=== PATIENT | male | born 1955 | race Caucasian/White ===

== ENCOUNTER 2019-06-06 13:00 | Inpatient (IN) ==
[2019-06-06] MEDS ORDERED: DOPamine 800 MG/250 ML PREMIX IV ONE (13:13)
[2019-06-06] MEDS ORDERED: ETOMIDATE 20 MG/10 ML VIAL IV ONE (13:18)
[2019-06-06] MEDS ORDERED: ROCURONIUM 100 MG/10 ML VIAL IV ONE (13:18)
[2019-06-06] MEDS: DOPamine 800 MG/250 ML PREMIX IV PRN ×2 (13:20→21:21)
[2019-06-06] MEDS ORDERED: cefTRIAXone 2,000 MG in SODIUM CHLORIDE 0.9% 100 ML IV ONE ×2 (13:27→14:30)
[2019-06-06 13:36] LABS: Basophils # 0.1 10*3/uL (0.0-0.2); Basophils % 0.6 % (0.0-0.8); Eosinophils % 0.3 % (0.00-10.9); Hematocrit 40.3 VOL% (42.0-52.0); Immature Granulocytes % 2.2 %; Immature Granulocytes Absolute 0.22 #; Lymphocytes # 1.7 10*3/uL (1.4-4.0); Lymphocytes % 16.5 % (21.2-54.2); Mean Corpuscular HGB Conc 32.3 GM/DL (32-36); Mean Corpuscular Volume 88.8 FL (87-102); Mean Platelet Volume 11.2 FL (9.6-12.0); Monocytes % 10.5 % (1.7-12.7); Neutrophils % 69.9 % (38.7-73.9); Platelet Count 211 T/CUMM (130-400); Red Blood Count 4.54 MC/CUMM (3.8-5.5); Red Cell Distribution Width 13.3 % (9.3-17.3); White Blood Count 10.1 T/CUMM (4-12)
[2019-06-06] MEDS ORDERED: EPINEPHrine 1 MG/ML VIAL ONE (13:44)
[2019-06-06 13:47] LABS: INR 1.2; PT Patient Result 13.1 SECS (9.8-11.9); Partial Thromboplastin Time 35.4 SECS (23.9-33.8)
[2019-06-06] MEDS ORDERED: SODIUM CHLORIDE 0.9% 500 ML IV STA (13:48)
[2019-06-06 14:00] LABS: ABG Base Excess -15.6 MMOL/L (-2.5-2.5); ABG HCO3 12.9 MMOL/L (20-26); ABG Oxygen Saturation 96.3 % (95-100); ABG PCO2 55.3 MM HG (35-48); ABG TCO2 14.7 MMOL/L (23-27); Allen Test Positive; Pt O2 Delivery Device Ventilator
[2019-06-06 14:03] LABS: ABG PH 7.064 (7.35-7.45)
[2019-06-06 14:06] LABS: Bilirubin,Total 0.5 MG/DL (0.2-1.0); Calcium 6.3 MG/DL (8.5-10.1); Ferritin 440.9 ng/ml (26-388); Osmolality,Calculated 320.8 MOS/KG (273-304); Thyroid Stimulating Hormone 0.967 uIU/ml (0.358-3.74); Total Protein 6.7 G/DL (6.4-8.3)
[2019-06-06] MEDS ORDERED: INSULIN REGULAR 100 UNIT/ML IV STA (14:19)
[2019-06-06] MEDS ORDERED: DEXTROSE 50% 25 GM/50 ML VIAL IV STA (14:19)
[2019-06-06] MEDS ORDERED: ALBUTEROL 2.5 MG/3 ML NEB RESP TX STA (14:19)
[2019-06-06] MEDS ORDERED: SODIUM BICARBONATE 50 MEQ/50 ML VIAL IV STA (14:21)
[2019-06-06] MEDS ORDERED: cefTRIAXone 2,000 MG in SYRINGE 1 EACH IV ONE (14:30)
[2019-06-06] MEDS ORDERED: SODIUM CHLORIDE 0.9% 1,000 ML IV STA (14:33)
[2019-06-06 14:38] LABS: Eosinophils 1 % (0-10); Lymphocytes 18 % (20-55); Segmented Neutrophils 74 % (50-85); Total Cells Counted 100
[2019-06-06 14:40] LABS: Platelet Estimate Adequate
[2019-06-06] MEDS ORDERED: DEXTROSE 10% 250 ML BAG IV STA (14:48)
[2019-06-06] MEDS ORDERED: ACETAMINOPHEN 325 MG TABLET PO PRN (14:49)
[2019-06-06] MEDS ORDERED: ONDANSETRON 4 MG/2 ML VIAL IV PRN (14:49)
[2019-06-06] MEDS ORDERED: GLUCAGON 1 MG VIAL IM PRN (14:49)
[2019-06-06] MEDS ORDERED: SODIUM POLYSTYRENE SULFATE 15 GM/60 ML BOTTLE RECTAL ONE ×3 (14:56→23:28)
[2019-06-06] MEDS ORDERED: SODIUM POLYSTYRENE SULFATE 15 GM/60 ML BOTTLE PO STA (14:56)
[2019-06-06] MEDS ORDERED: SODIUM CHLORIDE 0.9% 1,000 ML IV SCH (15:00)
[2019-06-06] MEDS ORDERED: SODIUM POLYSTYRENE SULFATE 15 GM/60 ML BOTTLE PO SCH (15:00)
[2019-06-06] MEDS ORDERED: SODIUM CHLORIDE 0.9% 1,000 ML IV PRN (16:11)
[2019-06-06] MEDS ORDERED: NOREPINEPHRINE 4 MG/4 ML VIAL IV ONE (16:12)
[2019-06-06] MEDS ORDERED: HEPARIN 10,000 UNIT/10 ML VIAL IV SCH (17:15)
[2019-06-06] MEDS: SODIUM BICARB INJ 150 MEQ in DEXTROSE 5% 850 ML IV SCH (17:34)
[2019-06-06 17:54] LABS: ABG Base Excess -13.6 MMOL/L (-2.5-2.5); ABG HCO3 14.1 MMOL/L (20-26); ABG Oxygen Saturation 89.3 % (95-100); ABG PCO2 50.3 MM HG (35-48); ABG PO2 67.4 MM HG (80-95); ABG TCO2 15.1 MMOL/L (23-27); Allen Test Positive; Pt O2 Delivery Device Ventilator
[2019-06-06 17:56] LABS: ABG PH 7.122 (7.35-7.45)
[2019-06-06] MEDS ORDERED: VASOPRESSIN 100 UNITS in SODIUM CHLORIDE 0.9% 95 ML IV SCH (19:00)
[2019-06-06] MEDS: ALBUTEROL 2.5 MG/3 ML NEB RESP TX SCH (19:26)
[2019-06-06 19:28] LABS: Apearance,Urine CLOUDY (Clear); Bacteria,Urine Occasional /HPF (Few); Bilirubin,Urine Negative (Negative); Blood, Urine Small mg/dL (Negative); Glucose,Urine (UA) 50 mg/dL (Negative); Ketones,Urine Negative (Negative); Mucus,Urine Occasional /LPF (Occasional); Nitrite,Urine Negative (Negative); Protein,Urine 100 MG/DL; RBC,Urine 17 /HPF (0-4); Squamous Epithelial Cell,Urine Occasional /HPF (0-10); Urine Color Amber (Yellow); Urine Urobilinogen < 2.0 EU/DL (0.2-1.0); WBC,Urine 11 /HPF (0-6)
[2019-06-06] MEDS ORDERED: VASOPRESSIN 100 UNITS in SODIUM CHLORIDE 0.9% 95 ML IV PRN (20:19)
[2019-06-06] MEDS ORDERED: HEPARIN 10,000 UNIT/10 ML VIAL IV PRN (20:30)
[2019-06-06] MEDS: PANTOPRAZOLE 40 MG VIAL IV SCH (20:55)
[2019-06-06] MEDS: DOCUSATE SODIUM 100 MG CAPSULE PO SCH (20:56)
[2019-06-06] MEDS ORDERED: SODIUM POLYSTYRENE SULFATE 15 GM/60 ML BOTTLE PO PRN (21:00)
[2019-06-06] MEDS ORDERED: APIXABAN 5 MG TABLET PO SCH (21:00)
[2019-06-06] MEDS ORDERED: SODIUM POLYSTYRENE SULFATE 15 GM/60 ML BOTTLE RECTAL PRN (21:00)
[2019-06-06 22:45] LABS: Hematocrit 40.4 VOL% (42.0-52.0); Hemoglobin 13.2 GM/DL (14.0-18.0)
[2019-06-07] MEDS: NOREPINEPHRINE 8 MG in SODIUM CHLORIDE 0.9% 242 ML IV PRN ×6 (00:37→23:01)
[2019-06-07] MEDS: INSULIN REGULAR 100 UNIT/ML SUBCUT SCH ×5 (00:49→22:52)
[2019-06-07] MEDS: ALBUTEROL 2.5 MG/3 ML NEB RESP TX SCH ×4 (00:55→19:35)
[2019-06-07] MEDS: SODIUM BICARB INJ 150 MEQ in DEXTROSE 5% 850 ML IV SCH ×2 (01:48→12:36)
[2019-06-07 04:18] LABS: ABG Base Excess -12.2 MMOL/L (-2.5-2.5); ABG HCO3 15.8 MMOL/L (20-26); ABG Oxygen Saturation 94.4 % (95-100); ABG PCO2 43.6 MM HG (35-48); ABG PO2 80.6 MM HG (80-95); ABG TCO2 17.1 MMOL/L (23-27); Allen Test Positive; Pt O2 Delivery Device Ventilator
[2019-06-07 04:20] LABS: ABG PH 7.176 (7.35-7.45)
[2019-06-07] MEDS: DOPamine 800 MG/250 ML PREMIX IV PRN ×3 (04:36→23:02)
[2019-06-07 06:33] LABS: Hematocrit 38.7 VOL% (42.0-52.0); Hemoglobin 12.9 GM/DL (14.0-18.0)
[2019-06-07 07:09] LABS: Osmolality,Calculated 334.8 MOS/KG (273-304)
[2019-06-07 07:10] LABS: Calcium 5.4 MG/DL (8.5-10.1)
[2019-06-07] MEDS: ASPIRIN EC 81 MG TABLET PO SCH (08:00)
[2019-06-07] MEDS: PANTOPRAZOLE 40 MG VIAL IV SCH ×2 (08:00→22:53)
[2019-06-07] MEDS: PANTOPRAZOLE 40 MG TABLET PO SCH (08:00)
[2019-06-07] MEDS: DOCUSATE SODIUM 100 MG CAPSULE PO SCH ×2 (08:00→22:53)
[2019-06-07 08:17] LABS: Hematocrit 39.9 VOL% (42.0-52.0); Hemoglobin 12.7 GM/DL (14.0-18.0)
[2019-06-07 10:16] LABS: Hepatitis B Core IgM Quant < 0.05 Index; Hepatitis B Surface Ag Quant < 0.10 Index; Hepatitis B Surface Ag Result Negative (Negative); Hepatitis C Virus Ab Quant 0.08 Index; Hepatitis C Virus Ab Result Negative (Negative)
[2019-06-07 11:47] LABS: Hematocrit 39.2 VOL% (42.0-52.0); Hemoglobin 13.3 GM/DL (14.0-18.0)
[2019-06-07 11:58] LABS: Basophils % 0.4 % (0.0-0.8); Eosinophils # 0.1 10*3/uL (0.0-0.87); Eosinophils % 0.8 % (0.00-10.9); Immature Granulocytes % 2.8 %; Immature Granulocytes Absolute 0.28 #; Lymphocytes # 1.2 10*3/uL (1.4-4.0); Lymphocytes % 12.4 % (21.2-54.2); Mean Corpuscular HGB Conc 33.5 GM/DL (32-36); Mean Corpuscular Volume 86.1 FL (87-102); Mean Platelet Volume 10.9 FL (9.6-12.0); Monocytes % 6.9 % (1.7-12.7); Neutrophils % 76.7 % (38.7-73.9); Platelet Count 233 T/CUMM (130-400); Red Blood Count 4.68 MC/CUMM (3.8-5.5); Red Cell Distribution Width 13.2 % (9.3-17.3)
[2019-06-07 12:15] LABS: Calcium 6.7 MG/DL (8.5-10.1); Osmolality,Calculated 314.4 MOS/KG (273-304)
[2019-06-07 12:32] LABS: Band Neutrophils 32 % (0-10); Eosinophils 2 % (0-10); Lymphocytes 10 % (20-55); Metamyelocytes 1 %; Myelocytes 1 %; Platelet Estimate Normal; Segmented Neutrophils 44 % (50-85); Total Cells Counted 100
[2019-06-07 12:33] LABS: Anisocytosis Slight; Poikilocytosis Slight
[2019-06-07] MEDS: cefTRIAXone 2,000 MG in SYRINGE 1 EACH IV SCH (15:40)
[2019-06-08] MEDS: SODIUM BICARB INJ 150 MEQ in DEXTROSE 5% 850 ML IV SCH ×2 (00:36→14:55)
[2019-06-08] MEDS: ALBUTEROL 2.5 MG/3 ML NEB RESP TX SCH ×4 (02:20→19:22)
[2019-06-08 04:07] LABS: Basophils % 0.3 % (0.0-0.8); Eosinophils # 0.2 10*3/uL (0.0-0.87); Eosinophils % 1.1 % (0.00-10.9); Hematocrit 36.4 VOL% (42.0-52.0); Hemoglobin 12.3 GM/DL (14.0-18.0); Immature Granulocytes % 2.3 %; Immature Granulocytes Absolute 0.32 #; Lymphocytes # 1.1 10*3/uL (1.4-4.0); Mean Corpuscular HGB Conc 33.8 GM/DL (32-36); Mean Corpuscular Volume 85.6 FL (87-102); Monocytes % 5.7 % (1.7-12.7); Neutrophils % 82.6 % (38.7-73.9); Platelet Count 186 T/CUMM (130-400); Red Blood Count 4.25 MC/CUMM (3.8-5.5); Red Cell Distribution Width 13.3 % (9.3-17.3); White Blood Count 13.7 T/CUMM (4-12)
[2019-06-08 04:20] LABS: Osmolality,Calculated 315.8 MOS/KG (273-304)
[2019-06-08 04:38] LABS: ABG Base Excess 1.3 MMOL/L (-2.5-2.5); ABG Oxygen Saturation 90.6 % (95-100); ABG PCO2 41.6 MM HG (35-48); ABG PH 7.414 (7.35-7.45); ABG PO2 60.9 MM HG (80-95); ABG TCO2 27.3 MMOL/L (23-27)
[2019-06-08 04:59] LABS: Calcium 5.8 MG/DL (8.5-10.1)
[2019-06-08] MEDS: DOPamine 800 MG/250 ML PREMIX IV PRN ×3 (05:19→19:26)
[2019-06-08 05:28] LABS: Lymphocytes 12 % (20-55); Microcytosis 2+; Nucleated Red Blood Cells 1 (0-5); Platelet Estimate Normal; Segmented Neutrophils 85 % (50-85); Total Cells Counted 100
[2019-06-08 05:29] LABS: Hypochromasia Slight
[2019-06-08] MEDS: DEXTROSE 10% 250 ML BAG IV PRN ×2 (05:44→16:55)
[2019-06-08] MEDS: ASPIRIN EC 81 MG TABLET PO SCH (09:10)
[2019-06-08] MEDS: PANTOPRAZOLE 40 MG VIAL IV SCH ×2 (09:10→21:27)
[2019-06-08] MEDS: PANTOPRAZOLE 40 MG TABLET PO SCH ×2 (09:10→09:15)
[2019-06-08] MEDS: DOCUSATE SODIUM 100 MG CAPSULE PO SCH ×2 (09:10→21:27)
[2019-06-08] MEDS: NOREPINEPHRINE 8 MG in SODIUM CHLORIDE 0.9% 242 ML IV PRN ×3 (09:11→21:23)
[2019-06-08] MEDS: INSULIN REGULAR 100 UNIT/ML SUBCUT SCH ×4 (10:28→20:52)
[2019-06-08] MEDS: cefTRIAXone 2,000 MG in SYRINGE 1 EACH IV SCH (14:54)
[2019-06-09] MEDS: ALBUTEROL 2.5 MG/3 ML NEB RESP TX SCH ×4 (00:04→19:50)
[2019-06-09] MEDS: DOPamine 800 MG/250 ML PREMIX IV PRN ×3 (01:08→14:50)
[2019-06-09] MEDS: DEXTROSE 10% 250 ML BAG IV PRN ×3 (01:09→12:50)
[2019-06-09 04:26] LABS: Osmolality,Calculated 315.4 MOS/KG (273-304)
[2019-06-09 04:28] LABS: Calcium 5.7 MG/DL (8.5-10.1)
[2019-06-09 04:45] LABS: ABG HCO3 30.8 MMOL/L (20-26); ABG Oxygen Saturation 98.4 % (95-100); ABG PCO2 45.4 MM HG (35-48); ABG PH 7.456 (7.35-7.45); ABG TCO2 28.1 MMOL/L (23-27); Allen Test Positive; Pt O2 Delivery Device Ventilator
[2019-06-09] MEDS: SODIUM BICARB INJ 150 MEQ in DEXTROSE 5% 850 ML IV SCH ×2 (04:47→18:11)
[2019-06-09 04:48] LABS: Albumin 2.2 G/DL (3.4-5.0)
[2019-06-09] MEDS: NOREPINEPHRINE 8 MG in SODIUM CHLORIDE 0.9% 242 ML IV PRN ×2 (04:57→18:40)
[2019-06-09] MEDS: PANTOPRAZOLE 40 MG VIAL IV SCH ×2 (08:03→21:55)
[2019-06-09] MEDS: INSULIN REGULAR 100 UNIT/ML SUBCUT SCH ×3 (08:04→18:17)
[2019-06-09] MEDS: DOCUSATE SODIUM 100 MG CAPSULE PO SCH ×2 (08:04→21:43)
[2019-06-09] MEDS: ASPIRIN EC 81 MG TABLET PO SCH (08:04)
[2019-06-09] MEDS: PANTOPRAZOLE 40 MG TABLET PO SCH (08:05)
[2019-06-09] MEDS ORDERED: PNEUMOCOCCAL VACCINE (13 VALENT) 0.5 ML SYRINGE IM ONE (09:00)
[2019-06-09] MEDS: ASPIRIN CHEW 81 MG TABLET PO SCH (09:13)
[2019-06-09] MEDS: cefTRIAXone 2,000 MG in SYRINGE 1 EACH IV SCH (14:18)
[2019-06-09] MEDS: [UNRECOGNIZED DRUG - OTHER] IV SCH (16:58)
[2019-06-09] MEDS: CALCIUM GLUCONATE IV SCH (16:58)
[2019-06-09] MEDS: TRACE ELEMENTS IV SCH (16:58)
[2019-06-09] MEDS: MULTIVITAMIN IV SCH (16:58)
[2019-06-10] MEDS: ALBUTEROL 2.5 MG/3 ML NEB RESP TX SCH ×4 (01:20→20:47)
[2019-06-10] MEDS: INSULIN REGULAR 100 UNIT/ML SUBCUT SCH ×4 (03:38→17:54)
[2019-06-10] MEDS: DOPamine 800 MG/250 ML PREMIX IV PRN ×3 (05:31→20:53)
[2019-06-10 05:41] LABS: Calcium 6.3 MG/DL (8.5-10.1); Osmolality,Calculated 313.5 MOS/KG (273-304)
[2019-06-10] MEDS: SODIUM BICARB INJ 150 MEQ in DEXTROSE 5% 850 ML IV SCH ×2 (07:41→20:52)
[2019-06-10] MEDS ORDERED: POTASSIUM CHLORIDE RIDER 20 MEQ in PREMIX 1 EACH IV ONE (08:12)
[2019-06-10 08:28] LABS: ABG Base Excess 9.3 MMOL/L (-2.5-2.5); ABG Oxygen Saturation 97.8 % (95-100); ABG PCO2 49.1 MM HG (35-48); ABG PH 7.458 (7.35-7.45); ABG PO2 95.8 MM HG (80-95); ABG TCO2 30.6 MMOL/L (23-27)
[2019-06-10] MEDS: DOCUSATE SODIUM 100 MG CAPSULE PO SCH ×2 (09:20→23:31)
[2019-06-10] MEDS: ASPIRIN CHEW 81 MG TABLET PO SCH (09:20)
[2019-06-10] MEDS: PANTOPRAZOLE 40 MG VIAL IV SCH ×2 (09:20→23:20)
[2019-06-10] MEDS: CALCIUM GLUCONATE IV SCH (12:11)
[2019-06-10] MEDS: MULTIVITAMIN IV SCH (12:11)
[2019-06-10] MEDS: TRACE ELEMENTS IV SCH (12:11)
[2019-06-10] MEDS: [UNRECOGNIZED DRUG - OTHER] IV SCH (12:11)
[2019-06-10] MEDS: MENTHOL/ZINC OXIDE OINT 71 GM JAR TOP SCH ×2 (18:26→23:35)
[2019-06-10] MEDS: cefTRIAXone 2,000 MG in SYRINGE 1 EACH IV SCH (18:32)
[2019-06-11] MEDS: ALBUTEROL 2.5 MG/3 ML NEB RESP TX SCH ×4 (00:40→20:07)
[2019-06-11] MEDS: INSULIN REGULAR 100 UNIT/ML SUBCUT SCH ×4 (01:21→18:18)
[2019-06-11 04:39] LABS: ABG Base Excess 10.3 MMOL/L (-2.5-2.5); ABG HCO3 35.1 MMOL/L (20-26); ABG Oxygen Saturation 98.8 % (95-100); ABG PCO2 47.6 MM HG (35-48); ABG PH 7.485 (7.35-7.45); ABG PO2 177.8 MM HG (80-95); ABG TCO2 36.5 MMOL/L (23-27)
[2019-06-11] MEDS ORDERED: DOPamine 800 MG/250 ML PREMIX IV ONE (06:15)
[2019-06-11] MEDS: MULTIVITAMIN IV SCH (06:19)
[2019-06-11] MEDS: [UNRECOGNIZED DRUG - OTHER] IV SCH (06:19)
[2019-06-11] MEDS: TRACE ELEMENTS IV SCH (06:19)
[2019-06-11] MEDS: CALCIUM GLUCONATE IV SCH (06:19)
[2019-06-11] MEDS ORDERED: VANCOMYCIN INJ 2,000 MG in SODIUM CHLORIDE 0.9% 500 ML IV ONE (09:00)
[2019-06-11] MEDS: DOPamine 800 MG/250 ML PREMIX IV PRN (09:20)
[2019-06-11] MEDS: MENTHOL/ZINC OXIDE OINT 71 GM JAR TOP SCH ×2 (09:31→22:30)
[2019-06-11] MEDS: PANTOPRAZOLE 40 MG VIAL IV SCH ×2 (09:40→20:57)
[2019-06-11] MEDS: DOCUSATE SODIUM 100 MG CAPSULE PO SCH ×2 (09:41→21:01)
[2019-06-11] MEDS: ASPIRIN CHEW 81 MG TABLET PO SCH (09:41)
[2019-06-11] MEDS: SODIUM BICARB INJ 150 MEQ in DEXTROSE 5% 850 ML IV SCH (10:40)
[2019-06-11 11:17] LABS: Calcium 7.2 MG/DL (8.5-10.1); Osmolality,Calculated 312.3 MOS/KG (273-304)
[2019-06-11] MEDS ORDERED: VANCOMYCIN INJ 1,000 MG in SODIUM CHLORIDE 0.9% 250 ML IV PRN (12:00)
[2019-06-11] MEDS: DEXTROSE 5% NACL 0.45% 1,000 ML IV SCH (13:12)
[2019-06-11] MEDS: cefTRIAXone 2,000 MG in SYRINGE 1 EACH IV SCH (16:02)
[2019-06-12] MEDS: [UNRECOGNIZED DRUG - OTHER] IV SCH ×2 (00:16→17:58)
[2019-06-12] MEDS: MULTIVITAMIN IV SCH ×2 (00:16→17:58)
[2019-06-12] MEDS: TRACE ELEMENTS IV SCH ×2 (00:16→17:58)
[2019-06-12] MEDS: CALCIUM GLUCONATE IV SCH ×2 (00:16→17:58)
[2019-06-12] MEDS: INSULIN REGULAR 100 UNIT/ML SUBCUT SCH ×4 (00:33→18:09)
[2019-06-12] MEDS: ALBUTEROL 2.5 MG/3 ML NEB RESP TX SCH ×4 (00:55→19:45)
[2019-06-12] MEDS: DEXTROSE 5% NACL 0.45% 1,000 ML IV SCH ×3 (02:47→17:57)
[2019-06-12 04:19] LABS: Basophils % 0.3 % (0.0-0.8); Eosinophils # 0.6 10*3/uL (0.0-0.87); Eosinophils % 4.9 % (0.00-10.9); Hemoglobin 9.5 GM/DL (14.0-18.0); Immature Granulocytes Absolute 0.24 #; Lymphocytes # 0.9 10*3/uL (1.4-4.0); Lymphocytes % 7.2 % (21.2-54.2); Mean Corpuscular HGB Conc 29.7 GM/DL (32-36); Mean Corpuscular Volume 95.5 FL (87-102); Mean Platelet Volume 10.9 FL (9.6-12.0); Monocytes % 4.6 % (1.7-12.7); Platelet Count 112 T/CUMM (130-400); Red Blood Count 3.35 MC/CUMM (3.8-5.5); Red Cell Distribution Width 13.4 % (9.3-17.3); White Blood Count 11.9 T/CUMM (4-12)
[2019-06-12 04:33] LABS: Calcium 7.2 MG/DL (8.5-10.1); Osmolality,Calculated 304.7 MOS/KG (273-304)
[2019-06-12 04:37] LABS: Prealbumin 13.5 MG/DL (20-40)
[2019-06-12 04:50] LABS: ABG Base Excess 9.6 MMOL/L (-2.5-2.5); ABG HCO3 34.6 MMOL/L (20-26); ABG Oxygen Saturation 97.9 % (95-100); ABG PCO2 49.5 MM HG (35-48); ABG PH 7.462 (7.35-7.45); ABG PO2 115.2 MM HG (80-95); ABG TCO2 36.1 MMOL/L (23-27); Allen Test Positive; Pt O2 Delivery Device Ventilator
[2019-06-12 07:55] LABS: ABG Base Excess 9.4 MMOL/L (-2.5-2.5); ABG HCO3 33.2 MMOL/L (20-26); ABG Oxygen Saturation 99.2 % (95-100); ABG PCO2 47.7 MM HG (35-48); ABG PH 7.467 (7.35-7.45); ABG TCO2 31.1 MMOL/L (23-27)
[2019-06-12] MEDS ORDERED: MAGNESIUM SULF RIDER 2 GM in PREMIX 1 EACH IV ONE (08:48)
[2019-06-12] MEDS ORDERED: POTASSIUM CHLORIDE 20 MEQ TABLET PO ONE (08:48)
[2019-06-12] MEDS: ASPIRIN CHEW 81 MG TABLET PO SCH (08:52)
[2019-06-12] MEDS: PANTOPRAZOLE 40 MG VIAL IV SCH ×2 (08:52→21:22)
[2019-06-12] MEDS: MENTHOL/ZINC OXIDE OINT 71 GM JAR TOP SCH (08:53)
[2019-06-12] MEDS: DOCUSATE SODIUM 100 MG/10 ML UDCUP PO SCH ×2 (08:53→21:21)
[2019-06-12] MEDS: MEROPENEM 500 MG in SODIUM CHLORIDE 0.9% 100 ML IV SCH (13:10)
[2019-06-13] MEDS: INSULIN REGULAR 100 UNIT/ML SUBCUT SCH ×4 (00:22→18:12)
[2019-06-13] MEDS: MENTHOL/ZINC OXIDE OINT 71 GM JAR TOP SCH ×2 (01:07→10:01)
[2019-06-13] MEDS: MEROPENEM 500 MG in SODIUM CHLORIDE 0.9% 100 ML IV SCH ×2 (01:16→12:04)
[2019-06-13] MEDS: ALBUTEROL 2.5 MG/3 ML NEB RESP TX SCH ×4 (01:30→20:25)
[2019-06-13 04:54] LABS: Calcium 8.2 MG/DL (8.5-10.1); Osmolality,Calculated 307.3 MOS/KG (273-304)
[2019-06-13] MEDS ORDERED: METOPROLOL TARTRATE 5 MG/5 ML VIAL IV PRN (07:16)
[2019-06-13] MEDS: carvediloL 12.5 MG TABLET PO SCH ×2 (08:27→17:33)
[2019-06-13] MEDS: DEXTROSE 5% NACL 0.45% 1,000 ML IV SCH ×4 (08:44→20:47)
[2019-06-13] MEDS: amLODIPine 5 MG TABLET PO SCH (10:00)
[2019-06-13] MEDS: PANTOPRAZOLE 40 MG VIAL IV SCH (10:00)
[2019-06-13] MEDS: ASPIRIN CHEW 81 MG TABLET PO SCH (10:00)
[2019-06-13] MEDS: DOCUSATE SODIUM 100 MG/10 ML UDCUP PO SCH (10:01)
[2019-06-13] MEDS: VANCOMYCIN INJ 1,000 MG in SODIUM CHLORIDE 0.9% 250 ML IV SCH (10:02)
[2019-06-13] MEDS: MULTIVITAMIN IV SCH ×2 (12:25→12:26)
[2019-06-13] MEDS: TRACE ELEMENTS IV SCH ×2 (12:25→12:26)
[2019-06-13] MEDS: [UNRECOGNIZED DRUG - OTHER] IV SCH ×2 (12:25→12:26)
[2019-06-13] MEDS: CALCIUM GLUCONATE IV SCH ×2 (12:25→12:26)
[2019-06-14] MEDS: DOCUSATE SODIUM 100 MG/10 ML UDCUP PO SCH ×4 (00:56→21:49)
[2019-06-14] MEDS: PANTOPRAZOLE 40 MG VIAL IV SCH ×3 (00:56→22:07)
[2019-06-14] MEDS: amLODIPine 5 MG TABLET PO SCH ×4 (00:57→21:51)
[2019-06-14] MEDS: INSULIN REGULAR 100 UNIT/ML SUBCUT SCH ×4 (01:05→18:18)
[2019-06-14] MEDS: MENTHOL/ZINC OXIDE OINT 71 GM JAR TOP SCH ×3 (01:09→22:13)
[2019-06-14] MEDS: ALBUTEROL 2.5 MG/3 ML NEB RESP TX SCH ×4 (02:00→18:52)
[2019-06-14] MEDS: MEROPENEM 500 MG in SODIUM CHLORIDE 0.9% 100 ML IV SCH ×2 (04:04→12:31)
[2019-06-14] MEDS: MULTIVITAMIN IV SCH (06:36)
[2019-06-14] MEDS: CALCIUM GLUCONATE IV SCH (06:36)
[2019-06-14] MEDS: TRACE ELEMENTS IV SCH (06:36)
[2019-06-14] MEDS: [UNRECOGNIZED DRUG - OTHER] IV SCH (06:36)
[2019-06-14] MEDS: ASPIRIN CHEW 81 MG TABLET PO SCH ×2 (09:42→12:21)
[2019-06-14] MEDS: carvediloL 12.5 MG TABLET PO SCH ×4 (09:45→21:50)
[2019-06-14] MEDS: DEXTROSE 5% NACL 0.45% 1,000 ML IV SCH (10:06)
[2019-06-14] MEDS: VANCOMYCIN INJ 1,000 MG in SODIUM CHLORIDE 0.9% 250 ML IV SCH (10:11)
[2019-06-14] MEDS ORDERED: TRACE ELEMENTS (5) 1 ML, MULTIVITAMIN INJ 10 ML, INSULIN REGULAR 30 UNIT in AMINO ACIDS... IV SCH (17:00)
[2019-06-14] MEDS ORDERED: LEVOFLOXACIN INJ 500 MG in PREMIX 1 EACH IV ONE (21:30)
[2019-06-14] MEDS: ACETAMINOPHEN 500 MG TABLET PO PRN (21:51)
[2019-06-15] MEDS: INSULIN REGULAR 100 UNIT/ML SUBCUT SCH ×4 (00:20→18:20)
[2019-06-15] MEDS: ALBUTEROL 2.5 MG/3 ML NEB RESP TX SCH ×4 (01:17→20:05)
[2019-06-15 05:31] LABS: Calcium 8.4 MG/DL (8.5-10.1); Osmolality,Calculated 340.4 MOS/KG (273-304)
[2019-06-15] MEDS: ACETAMINOPHEN 500 MG TABLET PO PRN (05:34)
[2019-06-15] MEDS: DEXTROSE 5% NACL 0.45% 1,000 ML IV SCH (05:56)
[2019-06-15] MEDS: MENTHOL/ZINC OXIDE OINT 71 GM JAR TOP SCH (08:48)
[2019-06-15] MEDS: INSULIN GLARGINE 100 UNIT/ML SUBCUT SCH (09:32)
[2019-06-15] MEDS: DOCUSATE SODIUM 100 MG/10 ML UDCUP PO SCH ×2 (09:32→22:51)
[2019-06-15] MEDS: PANTOPRAZOLE 40 MG VIAL IV SCH ×2 (09:32→22:48)
[2019-06-15] MEDS: amLODIPine 5 MG TABLET PO SCH ×2 (09:32→22:51)
[2019-06-15] MEDS: ASPIRIN CHEW 81 MG TABLET PO SCH (09:32)
[2019-06-15] MEDS: carvediloL 12.5 MG TABLET PO SCH ×2 (09:32→22:51)
[2019-06-15] MEDS: VANCOMYCIN INJ 1,000 MG in SODIUM CHLORIDE 0.9% 250 ML IV SCH (09:33)
[2019-06-15] MEDS ORDERED: TRACE ELEMENTS (5) 1 ML, MULTIVITAMIN INJ 10 ML, INSULIN REGULAR 30 UNIT in AMINO ACIDS... IV SCH (17:00)
[2019-06-15 19:23] LABS: Basophils % 0.4 % (0.0-0.8); Red Cell Distribution Width 13.4 % (9.3-17.3)
[2019-06-15 19:35] LABS: Bilirubin,Total 0.4 MG/DL (0.2-1.0); Calcium 8.4 MG/DL (8.5-10.1); Osmolality,Calculated 342.3 MOS/KG (273-304); Total Protein 5.8 G/DL (6.4-8.3)
[2019-06-15 19:44] LABS: Basophils # 0.1 10*3/uL (0.0-0.2); Eosinophils # 0.3 10*3/uL (0.0-0.87); Eosinophils % 2.6 % (0.00-10.9); Hematocrit 34.7 VOL% (42.0-52.0); Immature Granulocytes % 0.4 %; Immature Granulocytes Absolute 0.05 #; Lymphocytes # 1.2 10*3/uL (1.4-4.0); Lymphocytes % 10.3 % (21.2-54.2); Mean Corpuscular HGB Conc 28.5 GM/DL (32-36); Mean Platelet Volume 11.3 FL (9.6-12.0); Monocytes % 4.5 % (1.7-12.7); Neutrophils % 81.8 % (38.7-73.9); Platelet Count 215 T/CUMM (130-400); Red Blood Count 3.47 MC/CUMM (3.8-5.5); White Blood Count 11.4 T/CUMM (4-12)
[2019-06-15 19:45] LABS: Hemoglobin 9.9 GM/DL (14.0-18.0)
[2019-06-15 19:52] LABS: Hypochromasia Slight; Macrocytosis Slight; Platelet Estimate Normal
[2019-06-15] MEDS: LEVOFLOXACIN INJ 250 MG in PREMIX 1 EACH IV SCH (22:45)
[2019-06-16] MEDS: ALBUTEROL 2.5 MG/3 ML NEB RESP TX SCH ×4 (00:05→19:43)
[2019-06-16] MEDS: INSULIN REGULAR 100 UNIT/ML SUBCUT SCH ×4 (00:36→17:38)
[2019-06-16] MEDS: MENTHOL/ZINC OXIDE OINT 71 GM JAR TOP SCH ×3 (00:38→21:25)
[2019-06-16 05:17] LABS: Calcium 8.4 MG/DL (8.5-10.1); Osmolality,Calculated 351.6 MOS/KG (273-304)
[2019-06-16 05:34] LABS: Basophils % 0.3 % (0.0-0.8); Eosinophils # 0.4 10*3/uL (0.0-0.87); Eosinophils % 3.7 % (0.00-10.9); Hematocrit 32.3 VOL% (42.0-52.0); Hemoglobin 9.3 GM/DL (14.0-18.0); Immature Granulocytes % 0.5 %; Immature Granulocytes Absolute 0.05 #; Lymphocytes # 1.1 10*3/uL (1.4-4.0); Lymphocytes % 11.2 % (21.2-54.2); Mean Corpuscular HGB Conc 28.8 GM/DL (32-36); Mean Corpuscular Volume 98.5 FL (87-102); Mean Platelet Volume 11.6 FL (9.6-12.0); Monocytes % 4.9 % (1.7-12.7); Neutrophils % 79.4 % (38.7-73.9); Platelet Count 198 T/CUMM (130-400); Red Blood Count 3.28 MC/CUMM (3.8-5.5); Red Cell Distribution Width 13.4 % (9.3-17.3); White Blood Count 9.9 T/CUMM (4-12)
[2019-06-16 06:04] LABS: Hypochromasia 1+; Microcytosis 1+
[2019-06-16 06:05] LABS: Platelet Estimate Adequate
[2019-06-16] MEDS ORDERED: STERILE WATER IV SCH (07:00)
[2019-06-16] MEDS ORDERED: STERILE WATER IV ONE (07:30)
[2019-06-16] MEDS: PANTOPRAZOLE 40 MG VIAL IV SCH ×2 (09:37→21:04)
[2019-06-16] MEDS: carvediloL 12.5 MG TABLET PO SCH ×2 (09:41→21:06)
[2019-06-16] MEDS: ASPIRIN CHEW 81 MG TABLET PO SCH (09:41)
[2019-06-16] MEDS: amLODIPine 5 MG TABLET PO SCH ×2 (09:41→21:05)
[2019-06-16] MEDS: DOCUSATE SODIUM 100 MG/10 ML UDCUP PO SCH ×2 (09:45→21:05)
[2019-06-16] MEDS: INSULIN GLARGINE 100 UNIT/ML SUBCUT SCH (10:02)
[2019-06-16] MEDS: VANCOMYCIN INJ 1,000 MG in SODIUM CHLORIDE 0.9% 250 ML IV SCH (10:14)
[2019-06-16] MEDS ORDERED: FAT EMULSION 20% 250 ML IV SCH (14:00)
[2019-06-16] MEDS: DEXTROSE 5% NACL 0.22% 1,000 ML IV SCH ×2 (14:00→23:56)
[2019-06-16 15:24] LABS: Calcium 8.4 MG/DL (8.5-10.1); Osmolality,Calculated 347.5 MOS/KG (273-304)
[2019-06-16] MEDS: LEVOFLOXACIN INJ 250 MG in PREMIX 1 EACH IV SCH (21:04)
[2019-06-17] MEDS: INSULIN REGULAR 100 UNIT/ML SUBCUT SCH ×4 (00:32→18:22)
[2019-06-17] MEDS: ACETAMINOPHEN 500 MG TABLET PO PRN (00:33)
[2019-06-17] MEDS ORDERED: SODIUM CHLORIDE 0.45% 1,000 ML IV SCH (03:00)
[2019-06-17 04:28] LABS: Calcium 8.3 MG/DL (8.5-10.1); Osmolality,Calculated 344.9 MOS/KG (273-304)
[2019-06-17 04:37] LABS: Basophils % 0.3 % (0.0-0.8); Eosinophils # 0.5 10*3/uL (0.0-0.87); Hematocrit 32.8 VOL% (42.0-52.0); Immature Granulocytes % 0.7 %; Immature Granulocytes Absolute 0.08 #; Lymphocytes # 1.5 10*3/uL (1.4-4.0); Lymphocytes % 14.1 % (21.2-54.2); Mean Corpuscular Volume 101.5 FL (87-102); Mean Platelet Volume 11.9 FL (9.6-12.0); Monocytes % 4.8 % (1.7-12.7); Neutrophils % 75.1 % (38.7-73.9); Platelet Count 202 T/CUMM (130-400); Red Blood Count 3.23 MC/CUMM (3.8-5.5); Red Cell Distribution Width 13.6 % (9.3-17.3); White Blood Count 10.8 T/CUMM (4-12)
[2019-06-17 04:38] LABS: Hemoglobin 9.2 GM/DL (14.0-18.0)
[2019-06-17 04:41] LABS: Hypochromasia 1+; Platelet Estimate Adequate
[2019-06-17 04:42] LABS: Microcytosis Slight; Ovalocytes Slight
[2019-06-17] MEDS: ALBUTEROL 2.5 MG/3 ML NEB RESP TX SCH ×4 (07:12→19:43)
[2019-06-17] MEDS: carvediloL 12.5 MG TABLET PO SCH ×2 (09:34→21:24)
[2019-06-17] MEDS: amLODIPine 5 MG TABLET PO SCH ×2 (09:35→21:25)
[2019-06-17] MEDS: ASPIRIN CHEW 81 MG TABLET PO SCH (09:35)
[2019-06-17] MEDS: PANTOPRAZOLE 40 MG VIAL IV SCH ×2 (09:36→21:24)
[2019-06-17] MEDS: DOCUSATE SODIUM 100 MG/10 ML UDCUP PO SCH ×2 (09:36→21:24)
[2019-06-17] MEDS: INSULIN GLARGINE 100 UNIT/ML SUBCUT SCH (10:09)
[2019-06-17] MEDS: MENTHOL/ZINC OXIDE OINT 71 GM JAR TOP SCH (10:13)
[2019-06-17] MEDS: VANCOMYCIN INJ 1,000 MG in SODIUM CHLORIDE 0.9% 250 ML IV SCH ×2 (10:20→10:23)
[2019-06-17] MEDS: DEXTROSE 5% NACL 0.22% 1,000 ML IV SCH ×2 (10:52→17:55)
[2019-06-17] MEDS ORDERED: NOREPINEPHRINE 8 MG in SODIUM CHLORIDE 0.9% 242 ML IV PRN (13:11)
[2019-06-17] MEDS ORDERED: NOREPINEPHRINE 4 MG/4 ML VIAL IV ONE (13:21)
[2019-06-17] MEDS: NOREPINEPHRINE 8 MG in SODIUM CHLORIDE 0.9% 242 ML IV PRN (13:26)
[2019-06-17] MEDS ORDERED: FUROSEMIDE 40 MG/4 ML VIAL IV ONE ×2 (13:53→14:20)
[2019-06-17 14:09] LABS: ABG Base Excess -0.8 MMOL/L (-2.5-2.5); ABG HCO3 23.7 MMOL/L (20-26); ABG Oxygen Saturation 94.5 % (95-100); ABG PO2 81.3 MM HG (80-95); ABG TCO2 29.4 MMOL/L (23-27)
[2019-06-17 14:12] LABS: ABG PCO2 91.6 MM HG (35-48); ABG PH 7.137 (7.35-7.45)
[2019-06-17] MEDS: HYDROCORTISONE 100 MG VIAL IV SCH ×2 (15:22→21:42)
[2019-06-17] MEDS: cefTRIAXone 1,000 MG in SYRINGE 1 EACH IV SCH ×2 (15:25→15:33)
[2019-06-17] MEDS: LEVOFLOXACIN INJ 250 MG in PREMIX 1 EACH IV SCH (21:26)
[2019-06-18] MEDS: INSULIN REGULAR 100 UNIT/ML SUBCUT SCH ×5 (00:11→23:48)
[2019-06-18] MEDS: MENTHOL/ZINC OXIDE OINT 71 GM JAR TOP SCH ×3 (02:10→21:06)
[2019-06-18] MEDS: HYDROCORTISONE 100 MG VIAL IV SCH ×4 (03:05→19:33)
[2019-06-18 04:39] LABS: ABG Base Excess 2.9 MMOL/L (-2.5-2.5); ABG HCO3 30.6 MMOL/L (20-26); ABG Oxygen Saturation 98.1 % (95-100); ABG PCO2 65.9 MM HG (35-48); ABG PH 7.285 (7.35-7.45); ABG PO2 129.4 MM HG (80-95); ABG TCO2 32.6 MMOL/L (23-27); Allen Test Positive; Pt O2 Delivery Device BIPAP
[2019-06-18 05:14] LABS: Basophils % 0.4 % (0.0-0.8); Eosinophils % 0.1 % (0.00-10.9); Hematocrit 31.7 VOL% (42.0-52.0); Immature Granulocytes % 0.7 %; Immature Granulocytes Absolute 0.06 #; Lymphocytes # 0.7 10*3/uL (1.4-4.0); Lymphocytes % 9.1 % (21.2-54.2); Mean Corpuscular HGB Conc 28.1 GM/DL (32-36); Mean Corpuscular Volume 101.3 FL (87-102); Mean Platelet Volume 12.2 FL (9.6-12.0); Monocytes % 3.2 % (1.7-12.7); Neutrophils % 86.5 % (38.7-73.9); Platelet Count 191 T/CUMM (130-400); Red Blood Count 3.13 MC/CUMM (3.8-5.5); Red Cell Distribution Width 13.2 % (9.3-17.3); White Blood Count 8.2 T/CUMM (4-12)
[2019-06-18 05:16] LABS: Hemoglobin 8.9 GM/DL (14.0-18.0)
[2019-06-18 05:19] LABS: Hypochromasia 1+
[2019-06-18 05:20] LABS: Macrocytosis Slight; Platelet Estimate Adequate
[2019-06-18 05:24] LABS: Calcium 7.7 MG/DL (8.5-10.1); Osmolality,Calculated 347.4 MOS/KG (273-304)
[2019-06-18] MEDS: ALBUTEROL 2.5 MG/3 ML NEB RESP TX SCH ×4 (07:18→19:11)
[2019-06-18 08:21] LABS: ABG Base Excess 1.6 MMOL/L (-2.5-2.5); ABG HCO3 25.9 MMOL/L (20-26); ABG Oxygen Saturation 98.4 % (95-100); ABG PCO2 65.9 MM HG (35-48); ABG PH 7.265 (7.35-7.45)
[2019-06-18] MEDS ORDERED: SODIUM CHLORIDE 0.45% 1,000 ML IV SCH (08:30)
[2019-06-18 09:52] LABS: Calcium 7.7 MG/DL (8.5-10.1); Osmolality,Calculated 350.4 MOS/KG (273-304)
[2019-06-18] MEDS: ASPIRIN CHEW 81 MG TABLET PO SCH (11:14)
[2019-06-18] MEDS: DOCUSATE SODIUM 100 MG/10 ML UDCUP PO SCH ×2 (11:15→21:11)
[2019-06-18] MEDS: PANTOPRAZOLE 40 MG VIAL IV SCH ×2 (11:24→21:12)
[2019-06-18] MEDS: INSULIN GLARGINE 100 UNIT/ML SUBCUT SCH (12:05)
[2019-06-18] MEDS: SODIUM CHLORIDE 0.45% 1,000 ML IV SCH (15:54)
[2019-06-18] MEDS: cefTRIAXone 1,000 MG in SYRINGE 1 EACH IV SCH (16:12)
[2019-06-18] MEDS: NOREPINEPHRINE 8 MG in SODIUM CHLORIDE 0.9% 242 ML IV PRN (21:05)
[2019-06-18] MEDS: LEVOFLOXACIN INJ 250 MG in PREMIX 1 EACH IV SCH (21:11)
[2019-06-19] MEDS: ALBUTEROL 2.5 MG/3 ML NEB RESP TX SCH ×4 (00:08→19:31)
[2019-06-19] MEDS: HYDROCORTISONE 100 MG VIAL IV SCH ×4 (01:49→20:30)
[2019-06-19 04:12] LABS: Calcium 8.5 MG/DL (8.5-10.1); Osmolality,Calculated 347.3 MOS/KG (273-304); Prealbumin 19.3 MG/DL (20-40)
[2019-06-19] MEDS: SODIUM CHLORIDE 0.45% 1,000 ML IV SCH ×2 (05:47→13:51)
[2019-06-19] MEDS: INSULIN REGULAR 100 UNIT/ML SUBCUT SCH ×3 (06:12→17:59)
[2019-06-19] MEDS: MENTHOL/ZINC OXIDE OINT 71 GM JAR TOP SCH ×2 (08:50→21:27)
[2019-06-19] MEDS: ASPIRIN CHEW 81 MG TABLET PO SCH (08:50)
[2019-06-19] MEDS: DOCUSATE SODIUM 100 MG/10 ML UDCUP PO SCH ×2 (08:50→21:43)
[2019-06-19] MEDS: INSULIN GLARGINE 100 UNIT/ML SUBCUT SCH ×2 (08:56→21:43)
[2019-06-19] MEDS: PANTOPRAZOLE 40 MG VIAL IV SCH ×2 (09:01→21:44)
[2019-06-19] MEDS: cefTRIAXone 1,000 MG in SYRINGE 1 EACH IV SCH (13:42)
[2019-06-19] MEDS: ACETAMINOPHEN 500 MG TABLET PO PRN (17:00)
[2019-06-19] MEDS: LEVOFLOXACIN INJ 250 MG in PREMIX 1 EACH IV SCH (21:43)
[2019-06-20] MEDS: INSULIN REGULAR 100 UNIT/ML SUBCUT SCH ×4 (00:08→18:06)
[2019-06-20] MEDS: ALBUTEROL 2.5 MG/3 ML NEB RESP TX SCH ×4 (00:18→19:22)
[2019-06-20] MEDS: HYDROCORTISONE 100 MG VIAL IV SCH ×4 (01:31→20:34)
[2019-06-20] MEDS: SODIUM CHLORIDE 0.45% 1,000 ML IV SCH ×2 (01:31→13:19)
[2019-06-20 04:26] LABS: Basophils % 0.2 % (0.0-0.8); Hematocrit 33.6 VOL% (42.0-52.0); Hemoglobin 9.6 GM/DL (14.0-18.0); Immature Granulocytes % 0.7 %; Immature Granulocytes Absolute 0.03 #; Lymphocytes # 0.4 10*3/uL (1.4-4.0); Lymphocytes % 9.4 % (21.2-54.2); Mean Corpuscular HGB Conc 28.6 GM/DL (32-36); Monocytes % 3.3 % (1.7-12.7); Neutrophils % 86.4 % (38.7-73.9); Platelet Count 167 T/CUMM (130-400); Red Blood Count 3.43 MC/CUMM (3.8-5.5); Red Cell Distribution Width 12.9 % (9.3-17.3); White Blood Count 4.6 T/CUMM (4-12)
[2019-06-20 04:50] LABS: Calcium 8.5 MG/DL (8.5-10.1); Osmolality,Calculated 345.7 MOS/KG (273-304)
[2019-06-20 04:57] LABS: Hypochromasia 1+
[2019-06-20 04:58] LABS: Platelet Estimate Adequate
[2019-06-20 04:59] LABS: Microcytosis Slight
[2019-06-20] MEDS: PANTOPRAZOLE 40 MG VIAL IV SCH ×2 (09:17→22:07)
[2019-06-20] MEDS: DOCUSATE SODIUM 100 MG/10 ML UDCUP PO SCH ×2 (09:17→22:24)
[2019-06-20] MEDS: ASPIRIN CHEW 81 MG TABLET PO SCH (09:17)
[2019-06-20] MEDS: MENTHOL/ZINC OXIDE OINT 71 GM JAR TOP SCH ×2 (09:18→22:21)
[2019-06-20] MEDS: APIXABAN 5 MG TABLET PO SCH (09:22)
[2019-06-20] MEDS: carvediloL 25 MG TABLET PO SCH ×2 (09:22→22:21)
[2019-06-20] MEDS: allopurinoL 300 MG TABLET PO SCH (09:22)
[2019-06-20] MEDS: amLODIPine 5 MG TABLET PO SCH ×2 (09:22→23:59)
[2019-06-20] MEDS: FENOFIBRATE 145 MG TABLET PO SCH (09:22)
[2019-06-20] MEDS: GLIMEPIRIDE 2 MG TABLET PO SCH ×2 (09:22→17:08)
[2019-06-20] MEDS: cefTRIAXone 1,000 MG in SYRINGE 1 EACH IV SCH (13:12)
[2019-06-20] MEDS: dilTIAZem Drip 125 MG/125 ML PREMIX IV SCH (14:37)
[2019-06-20] MEDS: DEXTROSE 5% 1,000 ML IV SCH (17:08)
[2019-06-20] MEDS: DILTIAZEM 60 MG TABLET PO SCH ×2 (17:08→22:21)
[2019-06-20] MEDS: INSULIN GLARGINE 100 UNIT/ML SUBCUT SCH (22:15)
[2019-06-21] MEDS: ALBUTEROL 2.5 MG/3 ML NEB RESP TX SCH ×4 (00:43→19:15)
[2019-06-21] MEDS: INSULIN REGULAR 100 UNIT/ML SUBCUT SCH ×4 (00:52→17:29)
[2019-06-21] MEDS: HYDROCORTISONE 100 MG VIAL IV SCH ×3 (02:22→12:51)
[2019-06-21] MEDS: DEXTROSE 5% 1,000 ML IV SCH ×3 (02:54→23:00)
[2019-06-21 06:12] LABS: Basophils % 0.2 % (0.0-0.8); Hematocrit 34.2 VOL% (42.0-52.0); Immature Granulocytes % 0.5 %; Immature Granulocytes Absolute 0.03 #; Lymphocytes # 0.7 10*3/uL (1.4-4.0); Lymphocytes % 12.7 % (21.2-54.2); Mean Corpuscular HGB Conc 29.2 GM/DL (32-36); Mean Corpuscular Volume 96.1 FL (87-102); Mean Platelet Volume 12.4 FL (9.6-12.0); Monocytes % 5.3 % (1.7-12.7); Neutrophils % 81.3 % (38.7-73.9); Platelet Count 176 T/CUMM (130-400); Red Blood Count 3.56 MC/CUMM (3.8-5.5); White Blood Count 5.8 T/CUMM (4-12)
[2019-06-21 09:07] LABS: Anisocytosis 1+; Hypochromasia 2+; Platelet Estimate Adequate; Polychromasia Slight
[2019-06-21] MEDS: DOCUSATE SODIUM 100 MG/10 ML UDCUP PO SCH ×2 (09:09→23:37)
[2019-06-21] MEDS: GLIMEPIRIDE 2 MG TABLET PO SCH ×2 (09:10→16:58)
[2019-06-21] MEDS: ASPIRIN CHEW 81 MG TABLET PO SCH (09:10)
[2019-06-21] MEDS: allopurinoL 300 MG TABLET PO SCH (09:10)
[2019-06-21] MEDS: amLODIPine 5 MG TABLET PO SCH (09:10)
[2019-06-21] MEDS: APIXABAN 5 MG TABLET PO SCH (09:10)
[2019-06-21] MEDS: FENOFIBRATE 145 MG TABLET PO SCH (09:10)
[2019-06-21] MEDS: carvediloL 25 MG TABLET PO SCH ×2 (09:10→23:14)
[2019-06-21] MEDS: PANTOPRAZOLE 40 MG VIAL IV SCH ×2 (09:11→23:06)
[2019-06-21] MEDS: DILTIAZEM 60 MG TABLET PO SCH ×4 (09:11→23:14)
[2019-06-21] MEDS: MENTHOL/ZINC OXIDE OINT 71 GM JAR TOP SCH ×2 (09:12→23:16)
[2019-06-21] MEDS: dilTIAZem Drip 125 MG/125 ML PREMIX IV SCH ×2 (09:13→17:00)
[2019-06-21] MEDS: ALBUMIN 25% 25 GM in PREMIX 1 EACH IV SCH ×2 (12:48→19:57)
[2019-06-21] MEDS: NYSTATIN 500,000 UNIT/5 ML UDCUP SWISH/SWAL SCH ×3 (12:51→23:14)
[2019-06-21] MEDS: cefTRIAXone 1,000 MG in SYRINGE 1 EACH IV SCH (12:51)
[2019-06-21] MEDS: INSULIN GLARGINE 100 UNIT/ML SUBCUT SCH (23:11)
[2019-06-22] MEDS: ALBUTEROL 2.5 MG/3 ML NEB RESP TX SCH ×4 (00:49→20:05)
[2019-06-22] MEDS: INSULIN REGULAR 100 UNIT/ML SUBCUT SCH ×4 (00:58→17:32)
[2019-06-22] MEDS ORDERED: HYDROCORTISONE 100 MG VIAL IV SCH (01:00)
[2019-06-22] MEDS: ALBUMIN 25% 25 GM in PREMIX 1 EACH IV SCH ×3 (04:30→20:15)
[2019-06-22] MEDS: dilTIAZem Drip 125 MG/125 ML PREMIX IV SCH ×2 (04:32→17:25)
[2019-06-22 06:23] LABS: Eosinophils % 0.7 % (0.00-10.9); Hematocrit 30.9 VOL% (42.0-52.0); Immature Granulocytes % 1.5 %; Immature Granulocytes Absolute 0.09 #; Lymphocytes # 0.8 10*3/uL (1.4-4.0); Lymphocytes % 13.6 % (21.2-54.2); Mean Corpuscular HGB Conc 29.1 GM/DL (32-36); Mean Corpuscular Volume 97.8 FL (87-102); Monocytes % 6.1 % (1.7-12.7); Neutrophils % 78.1 % (38.7-73.9); Platelet Count 155 T/CUMM (130-400); Red Blood Count 3.16 MC/CUMM (3.8-5.5)
[2019-06-22 07:25] LABS: Calcium 8.1 MG/DL (8.5-10.1)
[2019-06-22] MEDS: NYSTATIN 500,000 UNIT/5 ML UDCUP SWISH/SWAL SCH ×4 (09:11→23:21)
[2019-06-22] MEDS: APIXABAN 5 MG TABLET PO SCH (09:11)
[2019-06-22] MEDS: FENOFIBRATE 145 MG TABLET PO SCH (09:11)
[2019-06-22] MEDS: PANTOPRAZOLE 40 MG VIAL IV SCH ×2 (09:11→23:09)
[2019-06-22] MEDS: carvediloL 25 MG TABLET PO SCH ×2 (09:12→23:18)
[2019-06-22] MEDS: GLIMEPIRIDE 2 MG TABLET PO SCH ×2 (09:12→17:26)
[2019-06-22] MEDS: allopurinoL 300 MG TABLET PO SCH (09:12)
[2019-06-22] MEDS: ASPIRIN CHEW 81 MG TABLET PO SCH (09:12)
[2019-06-22] MEDS: DEXTROSE 5% 1,000 ML IV SCH ×2 (09:12→17:32)
[2019-06-22] MEDS: MENTHOL/ZINC OXIDE OINT 71 GM JAR TOP SCH ×2 (09:13→23:22)
[2019-06-22] MEDS: DOCUSATE SODIUM 100 MG/10 ML UDCUP PO SCH ×2 (09:13→23:19)
[2019-06-22] MEDS: DILTIAZEM 90 MG TABLET PO SCH ×4 (09:16→23:18)
[2019-06-22 11:17] LABS: Hypochromasia 3+; Microcytosis 2+; Platelet Estimate Adequate; Polychromasia Slight
[2019-06-22] MEDS: cefTRIAXone 1,000 MG in SYRINGE 1 EACH IV SCH (12:34)
[2019-06-22] MEDS: INSULIN GLARGINE 100 UNIT/ML SUBCUT SCH (23:10)
[2019-06-23] MEDS: ALBUTEROL 2.5 MG/3 ML NEB RESP TX SCH ×4 (00:42→20:20)
[2019-06-23] MEDS: INSULIN REGULAR 100 UNIT/ML SUBCUT SCH ×5 (01:58→23:53)
[2019-06-23] MEDS: DEXTROSE 5% 1,000 ML IV SCH ×4 (03:19→17:58)
[2019-06-23] MEDS: ALBUMIN 25% 25 GM in PREMIX 1 EACH IV SCH ×3 (04:30→20:39)
[2019-06-23 07:02] LABS: Calcium 8.1 MG/DL (8.5-10.1); Calcium 8.2 MG/DL (8.5-10.1); Osmolality,Calculated 319.4 MOS/KG (273-304); Osmolality,Calculated 321.3 MOS/KG (273-304)
[2019-06-23] MEDS ORDERED: AMIODARONE INJ 150 MG in DEXTROSE 5% 100 ML IV ONE (07:07)
[2019-06-23 07:18] LABS: Basophils % 0.2 % (0.0-0.8); Eosinophils # 0.3 10*3/uL (0.0-0.87); Hematocrit 29.9 VOL% (42.0-52.0); Immature Granulocytes % 1.6 %; Lymphocytes # 1.4 10*3/uL (1.4-4.0); Lymphocytes % 21.4 % (21.2-54.2); Mean Corpuscular HGB Conc 27.8 GM/DL (32-36); Mean Platelet Volume 12.3 FL (9.6-12.0); Monocytes % 5.2 % (1.7-12.7); Neutrophils % 66.6 % (38.7-73.9); Platelet Count 150 T/CUMM (130-400); Red Blood Count 2.96 MC/CUMM (3.8-5.5); White Blood Count 6.4 T/CUMM (4-12)
[2019-06-23 07:25] LABS: Hemoglobin 8.3 GM/DL (14.0-18.0)
[2019-06-23 07:29] LABS: Hypochromasia 1+; Microcytosis 1+; Platelet Estimate Adequate
[2019-06-23] MEDS ORDERED: AMIODARONE INJ 450 MG in DEXTROSE 5% 241 ML IV SCH (07:30)
[2019-06-23] MEDS: FENOFIBRATE 145 MG TABLET PO SCH (09:44)
[2019-06-23] MEDS: DILTIAZEM 90 MG TABLET PO SCH ×4 (09:44→20:39)
[2019-06-23] MEDS: allopurinoL 300 MG TABLET PO SCH (09:44)
[2019-06-23] MEDS: GLIMEPIRIDE 2 MG TABLET PO SCH ×2 (09:44→16:37)
[2019-06-23] MEDS: NYSTATIN 500,000 UNIT/5 ML UDCUP SWISH/SWAL SCH ×4 (09:44→20:40)
[2019-06-23] MEDS: carvediloL 25 MG TABLET PO SCH ×2 (09:44→20:39)
[2019-06-23] MEDS: DOCUSATE SODIUM 100 MG/10 ML UDCUP PO SCH ×2 (09:45→20:40)
[2019-06-23] MEDS: MENTHOL/ZINC OXIDE OINT 71 GM JAR TOP SCH ×2 (09:45→20:40)
[2019-06-23] MEDS: ASPIRIN CHEW 81 MG TABLET PO SCH (09:45)
[2019-06-23] MEDS: PANTOPRAZOLE 40 MG VIAL IV SCH ×2 (09:45→20:41)
[2019-06-23] MEDS: APIXABAN 5 MG TABLET PO SCH ×2 (09:45→20:39)
[2019-06-23] MEDS: cefTRIAXone 1,000 MG in SYRINGE 1 EACH IV SCH (12:32)
[2019-06-23] MEDS: AMIODARONE INJ 450 MG in DEXTROSE 5% 241 ML IV SCH (16:36)
[2019-06-23] MEDS: INSULIN GLARGINE 100 UNIT/ML SUBCUT SCH (20:40)
[2019-06-24] MEDS: ALBUTEROL 2.5 MG/3 ML NEB RESP TX SCH ×4 (01:40→19:24)
[2019-06-24] MEDS: ALBUMIN 25% 25 GM in PREMIX 1 EACH IV SCH ×3 (03:45→20:49)
[2019-06-24] MEDS: DEXTROSE 5% 1,000 ML IV SCH ×2 (06:05→17:40)
[2019-06-24 07:02] LABS: Calcium 8.3 MG/DL (8.5-10.1); Osmolality,Calculated 311.7 MOS/KG (273-304)
[2019-06-24] MEDS: INSULIN REGULAR 100 UNIT/ML SUBCUT SCH ×4 (07:05→23:54)
[2019-06-24 07:14] LABS: Basophils % 0.4 % (0.0-0.8); Eosinophils # 0.3 10*3/uL (0.0-0.87); Eosinophils % 4.9 % (0.00-10.9); Hemoglobin 8.7 GM/DL (14.0-18.0); Immature Granulocytes % 4.1 %; Immature Granulocytes Absolute 0.28 #; Lymphocytes # 1.4 10*3/uL (1.4-4.0); Lymphocytes % 19.5 % (21.2-54.2); Mean Corpuscular Volume 94.8 FL (87-102); Mean Platelet Volume 12.6 FL (9.6-12.0); Monocytes % 5.1 % (1.7-12.7); NRBC # 0.03 10*3/uL; Platelet Count 164 T/CUMM (130-400); Red Blood Count 3.06 MC/CUMM (3.8-5.5); Red Cell Distribution Width 13.1 % (9.3-17.3); White Blood Count 6.9 T/CUMM (4-12)
[2019-06-24] MEDS: ASPIRIN CHEW 81 MG TABLET PO SCH (09:23)
[2019-06-24] MEDS: DILTIAZEM 90 MG TABLET PO SCH ×4 (09:23→20:54)
[2019-06-24] MEDS: NYSTATIN 500,000 UNIT/5 ML UDCUP SWISH/SWAL SCH ×4 (09:23→20:53)
[2019-06-24] MEDS: FENOFIBRATE 145 MG TABLET PO SCH (09:24)
[2019-06-24] MEDS: GLIMEPIRIDE 2 MG TABLET PO SCH ×2 (09:24→17:46)
[2019-06-24] MEDS: carvediloL 25 MG TABLET PO SCH ×2 (09:24→20:54)
[2019-06-24] MEDS: APIXABAN 5 MG TABLET PO SCH ×2 (09:25→20:54)
[2019-06-24] MEDS: MENTHOL/ZINC OXIDE OINT 71 GM JAR TOP SCH ×2 (09:26→20:55)
[2019-06-24] MEDS: DOCUSATE SODIUM 100 MG/10 ML UDCUP PO SCH ×2 (09:26→20:57)
[2019-06-24] MEDS: AMIODARONE INJ 450 MG in DEXTROSE 5% 241 ML IV SCH ×2 (09:26→23:55)
[2019-06-24] MEDS: allopurinoL 300 MG TABLET PO SCH (09:28)
[2019-06-24] MEDS: PANTOPRAZOLE 40 MG VIAL IV SCH ×2 (09:28→20:55)
[2019-06-24] MEDS: cefTRIAXone 1,000 MG in SYRINGE 1 EACH IV SCH (13:37)
[2019-06-24] MEDS: INSULIN GLARGINE 100 UNIT/ML SUBCUT SCH (20:54)
[2019-06-25] MEDS: ALBUTEROL 2.5 MG/3 ML NEB RESP TX SCH ×4 (00:24→19:38)
[2019-06-25] MEDS: DEXTROSE 5% 1,000 ML IV SCH ×5 (01:46→21:30)
[2019-06-25] MEDS: ALBUMIN 25% 25 GM in PREMIX 1 EACH IV SCH (03:43)
[2019-06-25] MEDS: INSULIN REGULAR 100 UNIT/ML SUBCUT SCH ×3 (06:59→17:51)
[2019-06-25] MEDS: GLIMEPIRIDE 2 MG TABLET PO SCH ×2 (08:30→18:36)
[2019-06-25] MEDS: APIXABAN 5 MG TABLET PO SCH ×2 (08:30→20:42)
[2019-06-25] MEDS: NYSTATIN 500,000 UNIT/5 ML UDCUP SWISH/SWAL SCH ×4 (08:30→20:42)
[2019-06-25] MEDS: allopurinoL 300 MG TABLET PO SCH (08:30)
[2019-06-25] MEDS: FENOFIBRATE 145 MG TABLET PO SCH (08:30)
[2019-06-25] MEDS: PANTOPRAZOLE 40 MG VIAL IV SCH ×2 (08:30→20:42)
[2019-06-25] MEDS: ASPIRIN CHEW 81 MG TABLET PO SCH (08:30)
[2019-06-25] MEDS: DILTIAZEM 90 MG TABLET PO SCH ×4 (08:30→20:41)
[2019-06-25] MEDS: carvediloL 25 MG TABLET PO SCH ×2 (08:30→20:42)
[2019-06-25] MEDS: DOCUSATE SODIUM 100 MG/10 ML UDCUP PO SCH ×2 (08:31→20:49)
[2019-06-25] MEDS: MENTHOL/ZINC OXIDE OINT 71 GM JAR TOP SCH ×2 (08:31→20:41)
[2019-06-25] MEDS ORDERED: AMIODARONE 200 MG TABLET PO SCH (09:00)
[2019-06-25] MEDS: AMIODARONE INJ 450 MG in DEXTROSE 5% 241 ML IV SCH (10:28)
[2019-06-25] MEDS ORDERED: AMIODARONE 200 MG TABLET PO ONE (13:15)
[2019-06-25] MEDS: AMIODARONE 200 MG TABLET PO SCH (20:41)
[2019-06-25] MEDS: INSULIN GLARGINE 100 UNIT/ML SUBCUT SCH (23:15)
[2019-06-26] MEDS: ALBUTEROL 2.5 MG/3 ML NEB RESP TX SCH ×4 (01:15→19:36)
[2019-06-26] MEDS: INSULIN REGULAR 100 UNIT/ML SUBCUT SCH ×4 (02:28→19:05)
[2019-06-26] MEDS: AMIODARONE INJ 450 MG in DEXTROSE 5% 241 ML IV SCH ×2 (02:30→16:53)
[2019-06-26 05:01] LABS: Basophils % 0.2 % (0.0-0.8); Eosinophils # 0.2 10*3/uL (0.0-0.87); Eosinophils % 2.8 % (0.00-10.9); Hematocrit 30.1 VOL% (42.0-52.0); Hemoglobin 8.8 GM/DL (14.0-18.0); Immature Granulocytes % 4.3 %; Immature Granulocytes Absolute 0.36 #; Lymphocytes # 1.2 10*3/uL (1.4-4.0); Lymphocytes % 14.4 % (21.2-54.2); Mean Corpuscular HGB Conc 29.2 GM/DL (32-36); Mean Corpuscular Volume 96.8 FL (87-102); Mean Platelet Volume 12.4 FL (9.6-12.0); Monocytes % 4.8 % (1.7-12.7); Neutrophils % 73.5 % (38.7-73.9); Platelet Count 174 T/CUMM (130-400); Red Blood Count 3.11 MC/CUMM (3.8-5.5); Red Cell Distribution Width 13.3 % (9.3-17.3); White Blood Count 8.5 T/CUMM (4-12)
[2019-06-26 05:23] LABS: Calcium 8.5 MG/DL (8.5-10.1); Osmolality,Calculated 296.8 MOS/KG (273-304)
[2019-06-26] MEDS: DEXTROSE 5% 1,000 ML IV SCH ×2 (09:05→21:45)
[2019-06-26] MEDS: DILTIAZEM 90 MG TABLET PO SCH ×4 (09:06→21:47)
[2019-06-26] MEDS: allopurinoL 300 MG TABLET PO SCH (09:06)
[2019-06-26] MEDS: AMIODARONE 200 MG TABLET PO SCH ×2 (09:06→21:48)
[2019-06-26] MEDS: GLIMEPIRIDE 2 MG TABLET PO SCH ×2 (09:07→16:47)
[2019-06-26] MEDS: ASPIRIN CHEW 81 MG TABLET PO SCH (09:08)
[2019-06-26] MEDS: carvediloL 25 MG TABLET PO SCH ×2 (09:08→21:48)
[2019-06-26] MEDS: FENOFIBRATE 145 MG TABLET PO SCH (09:08)
[2019-06-26] MEDS: DOCUSATE SODIUM 100 MG/10 ML UDCUP PO SCH ×2 (09:09→21:47)
[2019-06-26] MEDS: MENTHOL/ZINC OXIDE OINT 71 GM JAR TOP SCH ×2 (09:09→21:47)
[2019-06-26] MEDS: APIXABAN 5 MG TABLET PO SCH ×2 (09:09→21:48)
[2019-06-26] MEDS: PANTOPRAZOLE 40 MG VIAL IV SCH ×2 (09:13→21:46)
[2019-06-26] MEDS: NYSTATIN 500,000 UNIT/5 ML UDCUP SWISH/SWAL SCH ×4 (09:13→21:47)
[2019-06-26] MEDS: SODIUM CHLORIDE 0.9% 1,000 ML IV SCH (23:48)
[2019-06-26] MEDS: INSULIN GLARGINE 100 UNIT/ML SUBCUT SCH (23:49)
[2019-06-27] MEDS: ALBUTEROL 2.5 MG/3 ML NEB RESP TX SCH ×4 (01:10→20:50)
[2019-06-27] MEDS: INSULIN REGULAR 100 UNIT/ML SUBCUT SCH ×4 (01:55→17:43)
[2019-06-27 06:33] LABS: Basophils % 0.4 % (0.0-0.8); Eosinophils # 0.2 10*3/uL (0.0-0.87); Eosinophils % 1.8 % (0.00-10.9); Hematocrit 31.7 VOL% (42.0-52.0); Hemoglobin 9.4 GM/DL (14.0-18.0); Immature Granulocytes % 3.9 %; Lymphocytes % 9.7 % (21.2-54.2); Mean Corpuscular HGB Conc 29.7 GM/DL (32-36); Mean Corpuscular Volume 96.4 FL (87-102); Mean Platelet Volume 12.7 FL (9.6-12.0); Monocytes % 4.5 % (1.7-12.7); Neutrophils % 79.7 % (38.7-73.9); Platelet Count 208 T/CUMM (130-400); Red Blood Count 3.29 MC/CUMM (3.8-5.5); Red Cell Distribution Width 13.3 % (9.3-17.3); White Blood Count 10.2 T/CUMM (4-12)
[2019-06-27 06:56] LABS: Calcium 8.5 MG/DL (8.5-10.1); Osmolality,Calculated 294.3 MOS/KG (273-304)
[2019-06-27] MEDS ORDERED: MIDAZOLAM 2 MG/2 ML VIAL ONE (07:01)
[2019-06-27] MEDS: carvediloL 25 MG TABLET PO SCH ×2 (10:21→21:30)
[2019-06-27] MEDS: FENOFIBRATE 145 MG TABLET PO SCH (10:21)
[2019-06-27] MEDS: allopurinoL 300 MG TABLET PO SCH (10:21)
[2019-06-27] MEDS: GLIMEPIRIDE 2 MG TABLET PO SCH ×2 (10:21→17:20)
[2019-06-27] MEDS: AMIODARONE 200 MG TABLET PO SCH ×2 (10:21→21:30)
[2019-06-27] MEDS: ASPIRIN CHEW 81 MG TABLET PO SCH (10:22)
[2019-06-27] MEDS: DOCUSATE SODIUM 100 MG/10 ML UDCUP PO SCH ×3 (10:22→21:29)
[2019-06-27] MEDS: APIXABAN 5 MG TABLET PO SCH ×2 (10:22→21:30)
[2019-06-27] MEDS: DILTIAZEM CD 180 MG CAPSULE PO SCH ×2 (10:22→21:29)
[2019-06-27] MEDS: MENTHOL/ZINC OXIDE OINT 71 GM JAR TOP SCH ×2 (10:23→22:47)
[2019-06-27] MEDS: NYSTATIN 500,000 UNIT/5 ML UDCUP SWISH/SWAL SCH ×5 (10:23→22:47)
[2019-06-27] MEDS: PANTOPRAZOLE 40 MG VIAL IV SCH ×2 (10:23→21:31)
[2019-06-27] MEDS: AMIODARONE INJ 450 MG in DEXTROSE 5% 241 ML IV SCH (10:24)
[2019-06-27] MEDS: SODIUM CHLORIDE 0.9% 1,000 ML IV SCH (10:24)
[2019-06-27] MEDS ORDERED: POTASSIUM CHLORIDE 20 MEQ TABLET PO ONE (10:44)
[2019-06-27] MEDS: DEXTROSE 5% NACL 0.45% 1,000 ML IV SCH (17:19)
[2019-06-27] MEDS: ACETAMINOPHEN 500 MG TABLET PO PRN (17:20)
[2019-06-27] MEDS: DEXTROSE 5% 1,000 ML IV SCH (17:39)
[2019-06-27] MEDS ORDERED: BISACODYL 10 MG SUPP RECTAL ONE (20:30)
[2019-06-27] MEDS: INSULIN GLARGINE 100 UNIT/ML SUBCUT SCH (21:31)
[2019-06-28] MEDS: AMIODARONE INJ 450 MG in DEXTROSE 5% 241 ML IV SCH ×2 (00:50→14:10)
[2019-06-28] MEDS: INSULIN REGULAR 100 UNIT/ML SUBCUT SCH ×4 (00:50→17:52)
[2019-06-28] MEDS: ALBUTEROL 2.5 MG/3 ML NEB RESP TX SCH ×4 (01:20→19:13)
[2019-06-28] MEDS: SODIUM CHLORIDE 0.9% 1,000 ML IV SCH (08:46)
[2019-06-28 09:07] LABS: ABG Base Excess 3.8 MMOL/L (-2.5-2.5); ABG HCO3 27.8 MMOL/L (20-26); ABG Oxygen Saturation 94.4 % (95-100); ABG PCO2 44.2 MM HG (35-48); ABG PH 7.421 (7.35-7.45); ABG PO2 65.8 MM HG (80-95); ABG TCO2 26.5 MMOL/L (23-27)
[2019-06-28] MEDS: DEXTROSE 5% NACL 0.45% 1,000 ML IV SCH ×2 (10:32→14:11)
[2019-06-28] MEDS: allopurinoL 300 MG TABLET PO SCH (10:35)
[2019-06-28] MEDS: FENOFIBRATE 145 MG TABLET PO SCH (10:35)
[2019-06-28] MEDS: GLIMEPIRIDE 2 MG TABLET PO SCH ×2 (10:35→17:52)
[2019-06-28] MEDS: APIXABAN 5 MG TABLET PO SCH ×2 (10:35→21:41)
[2019-06-28] MEDS: DILTIAZEM CD 180 MG CAPSULE PO SCH ×2 (10:35→21:41)
[2019-06-28] MEDS: NYSTATIN 500,000 UNIT/5 ML UDCUP SWISH/SWAL SCH ×4 (10:36→21:42)
[2019-06-28] MEDS: PANTOPRAZOLE 40 MG VIAL IV SCH ×2 (10:36→21:00)
[2019-06-28] MEDS: AMIODARONE 200 MG TABLET PO SCH ×2 (10:36→21:41)
[2019-06-28] MEDS: ASPIRIN CHEW 81 MG TABLET PO SCH (10:36)
[2019-06-28] MEDS: carvediloL 25 MG TABLET PO SCH ×2 (10:36→21:41)
[2019-06-28] MEDS: DOCUSATE SODIUM 100 MG/10 ML UDCUP PO SCH ×2 (11:21→21:41)
[2019-06-28] MEDS: MENTHOL/ZINC OXIDE OINT 71 GM JAR TOP SCH ×2 (11:21→21:41)
[2019-06-28] MEDS: DEXTROSE 10% 250 ML BAG IV PRN ×2 (13:07→14:44)
[2019-06-28] MEDS: INSULIN GLARGINE 100 UNIT/ML SUBCUT SCH (21:41)
[2019-06-29] MEDS: INSULIN REGULAR 100 UNIT/ML SUBCUT SCH ×4 (00:28→18:34)
[2019-06-29] MEDS: ALBUTEROL 2.5 MG/3 ML NEB RESP TX SCH ×2 (00:40→08:23)
[2019-06-29] MEDS ORDERED: FUROSEMIDE 40 MG/4 ML VIAL IV STA (00:42)
[2019-06-29 01:10] LABS: ABG Base Excess 1.3 MMOL/L (-2.5-2.5); ABG HCO3 25.4 MMOL/L (20-26); ABG Oxygen Saturation 88.1 % (95-100); ABG PCO2 39.3 MM HG (35-48); ABG PH 7.423 (7.35-7.45); ABG PO2 50.7 MM HG (80-95); ABG TCO2 23.6 MMOL/L (23-27); Allen Test Positive; Pt O2 Delivery Device BIPAP
[2019-06-29 01:32] LABS: Basophils % 0.3 % (0.0-0.8); Eosinophils % 0.3 % (0.00-10.9); Hematocrit 29.1 VOL% (42.0-52.0); Hemoglobin 8.7 GM/DL (14.0-18.0); Immature Granulocytes % 1.1 %; Immature Granulocytes Absolute 0.04 #; Lymphocytes # 0.1 10*3/uL (1.4-4.0); Lymphocytes % 3.7 % (21.2-54.2); Mean Corpuscular HGB Conc 29.9 GM/DL (32-36); Mean Corpuscular Volume 95.7 FL (87-102); Mean Platelet Volume 11.5 FL (9.6-12.0); Monocytes % 0.6 % (1.7-12.7); Platelet Count 134 T/CUMM (130-400); Red Blood Count 3.04 MC/CUMM (3.8-5.5); Red Cell Distribution Width 13.8 % (9.3-17.3); White Blood Count 3.6 T/CUMM (4-12)
[2019-06-29 02:08] LABS: Band Neutrophils 20 % (0-10); Calcium 8.2 MG/DL (8.5-10.1); Eosinophils 1 % (0-10); Lymphocytes 3 % (20-55); Metamyelocytes 2 %; Myelocytes 2 %; Osmolality,Calculated 296.8 MOS/KG (273-304); Segmented Neutrophils 71 % (50-85); Total Cells Counted 100
[2019-06-29 02:09] LABS: Hypochromasia 1+; Microcytosis 2+; Platelet Estimate Normal
[2019-06-29] MEDS ORDERED: NOREPINEPHRINE 4 MG/4 ML VIAL IV ONE (02:50)
[2019-06-29] MEDS ORDERED: NOREPINEPHRINE 8 MG in SODIUM CHLORIDE 0.9% 242 ML IV PRN (02:51)
[2019-06-29] MEDS ORDERED: SODIUM CHLORIDE 0.9% 500 ML IV ONE (02:53)
[2019-06-29] MEDS: DEXTROSE 10% 250 ML BAG IV PRN (04:04)
[2019-06-29] MEDS: PIPERACILLIN/TAZOBACTAM 3,375 MG in SODIUM CHLORIDE 0.9% 100 ML IV SCH ×3 (04:30→21:40)
[2019-06-29] MEDS: ACETAMINOPHEN 500 MG TABLET PO PRN (04:50)
[2019-06-29] MEDS: AMIODARONE INJ 450 MG in DEXTROSE 5% 241 ML IV SCH ×2 (04:55→20:56)
[2019-06-29] MEDS: DOPamine 800 MG/250 ML PREMIX IV PRN (05:20)
[2019-06-29 05:38] LABS: Apearance,Urine CLEAR (Clear); Bilirubin,Urine Negative (Negative); Blood, Urine Small mg/dL (Negative); Glucose,Urine (UA) Negative (Negative); Granular Casts,Urine 1 /LPF (0-1); Hyaline Casts,Urine 7 /LPF (0-3); Ketones,Urine Negative (Negative); Mucus,Urine Occasional /LPF (Occasional); Nitrite,Urine Negative (Negative); Protein,Urine Negative; RBC,Urine <1 /HPF (0-4); Urine Color Yellow (Yellow); Urine Specific Gravity 1.014 (1.001-1.035); Urine Urobilinogen < 2.0 EU/DL (0.2-1.0); WBC,Urine 1 /HPF (0-6)
[2019-06-29] MEDS: NOREPINEPHRINE 16 MG in SODIUM CHLORIDE 0.9% 234 ML IV PRN ×3 (05:57→20:40)
[2019-06-29] MEDS ORDERED: VANCOMYCIN INJ 2,000 MG in SODIUM CHLORIDE 0.9% 500 ML IV PRN (08:00)
[2019-06-29 08:03] LABS: Osmolality,Calculated 295.1 MOS/KG (273-304)
[2019-06-29] MEDS ORDERED: VANCOMYCIN INJ 2,000 MG in SODIUM CHLORIDE 0.9% 500 ML IV ONE (08:30)
[2019-06-29] MEDS ORDERED: ALBUMIN 25% 12.5 GM in PREMIX 1 EACH IV ONE (08:33)
[2019-06-29] MEDS ORDERED: SODIUM CHLORIDE 0.9% 1,000 ML IV ONE (08:34)
[2019-06-29] MEDS: ASPIRIN CHEW 81 MG TABLET PO SCH (10:11)
[2019-06-29] MEDS: GLIMEPIRIDE 2 MG TABLET PO SCH ×2 (10:11→16:20)
[2019-06-29] MEDS: DILTIAZEM CD 180 MG CAPSULE PO SCH ×2 (10:11→21:40)
[2019-06-29] MEDS: carvediloL 25 MG TABLET PO SCH ×2 (10:12→21:40)
[2019-06-29] MEDS: allopurinoL 300 MG TABLET PO SCH (10:12)
[2019-06-29] MEDS: DOCUSATE SODIUM 100 MG/10 ML UDCUP PO SCH ×2 (10:12→21:40)
[2019-06-29] MEDS: FENOFIBRATE 145 MG TABLET PO SCH (10:12)
[2019-06-29] MEDS: AMIODARONE 200 MG TABLET PO SCH ×2 (10:12→21:40)
[2019-06-29] MEDS: NYSTATIN 500,000 UNIT/5 ML UDCUP SWISH/SWAL SCH ×4 (10:12→22:06)
[2019-06-29] MEDS: APIXABAN 5 MG TABLET PO SCH ×2 (10:12→21:40)
[2019-06-29] MEDS: PANTOPRAZOLE 40 MG VIAL IV SCH ×2 (10:30→21:40)
[2019-06-29] MEDS: MENTHOL/ZINC OXIDE OINT 71 GM JAR TOP SCH ×2 (11:30→22:04)
[2019-06-29] MEDS: SODIUM CHLORIDE 0.9% 1,000 ML IV SCH (12:11)
[2019-06-29] MEDS: DEXTROSE 5% NACL 0.45% 1,000 ML IV SCH (15:42)
[2019-06-29] MEDS: INSULIN GLARGINE 100 UNIT/ML SUBCUT SCH (21:40)
[2019-06-30] MEDS: INSULIN REGULAR 100 UNIT/ML SUBCUT SCH ×4 (00:48→18:05)
[2019-06-30] MEDS ORDERED: DOPamine 800 MG/250 ML PREMIX IV ONE (04:40)
[2019-06-30] MEDS: DOPamine 800 MG/250 ML PREMIX IV PRN (04:45)
[2019-06-30] MEDS: NOREPINEPHRINE 16 MG in SODIUM CHLORIDE 0.9% 234 ML IV PRN ×2 (05:00→18:46)
[2019-06-30] MEDS: DEXTROSE 5% NACL 0.45% 1,000 ML IV SCH ×2 (05:02→18:05)
[2019-06-30 05:19] LABS: Allen Test Positive; Pt O2 Delivery Device BIPAP
[2019-06-30 05:20] LABS: ABG Base Excess -0.1 MMOL/L (-2.5-2.5); ABG HCO3 24.3 MMOL/L (20-26); ABG Oxygen Saturation 97.1 % (95-100); ABG PCO2 48.6 MM HG (35-48); ABG PH 7.336 (7.35-7.45); ABG PO2 83.7 MM HG (80-95); ABG TCO2 24.4 MMOL/L (23-27)
[2019-06-30] MEDS: PIPERACILLIN/TAZOBACTAM 3,375 MG in SODIUM CHLORIDE 0.9% 100 ML IV SCH ×2 (05:40→13:22)
[2019-06-30 06:19] LABS: Calcium 8.1 MG/DL (8.5-10.1); Osmolality,Calculated 305.7 MOS/KG (273-304)
[2019-06-30] MEDS: AMIODARONE 200 MG TABLET PO SCH ×2 (08:41→22:01)
[2019-06-30] MEDS: ASPIRIN CHEW 81 MG TABLET PO SCH (08:41)
[2019-06-30] MEDS: carvediloL 25 MG TABLET PO SCH ×2 (08:41→22:01)
[2019-06-30] MEDS: allopurinoL 300 MG TABLET PO SCH (08:41)
[2019-06-30] MEDS: FENOFIBRATE 145 MG TABLET PO SCH (08:41)
[2019-06-30] MEDS: DILTIAZEM CD 180 MG CAPSULE PO SCH ×2 (08:42→22:00)
[2019-06-30] MEDS: PANTOPRAZOLE 40 MG VIAL IV SCH ×2 (08:42→22:02)
[2019-06-30] MEDS: GLIMEPIRIDE 2 MG TABLET PO SCH ×2 (08:42→18:05)
[2019-06-30] MEDS: APIXABAN 5 MG TABLET PO SCH ×2 (08:42→22:02)
[2019-06-30] MEDS: NYSTATIN 500,000 UNIT/5 ML UDCUP SWISH/SWAL SCH ×4 (09:00→22:02)
[2019-06-30] MEDS: DOCUSATE SODIUM 100 MG/10 ML UDCUP PO SCH ×2 (09:00→22:01)
[2019-06-30] MEDS: MENTHOL/ZINC OXIDE OINT 71 GM JAR TOP SCH ×2 (10:54→22:00)
[2019-06-30] MEDS: AMIODARONE INJ 450 MG in DEXTROSE 5% 241 ML IV SCH (11:43)
[2019-06-30] MEDS: POTASSIUM CHLORIDE 20 MEQ/15 ML UDCUP PER TUBE PRN ×2 (13:00→17:00)
[2019-06-30] MEDS: INSULIN GLARGINE 100 UNIT/ML SUBCUT SCH (22:02)
[2019-07-01] MEDS: PIPERACILLIN/TAZOBACTAM 3,375 MG in SODIUM CHLORIDE 0.9% 100 ML IV SCH ×3 (00:45→16:11)
[2019-07-01] MEDS: INSULIN REGULAR 100 UNIT/ML SUBCUT SCH ×4 (00:47→17:49)
[2019-07-01 05:18] LABS: Calcium 8.1 MG/DL (8.5-10.1); Osmolality,Calculated 306.3 MOS/KG (273-304)
[2019-07-01] MEDS: DEXTROSE 5% NACL 0.45% 1,000 ML IV SCH ×2 (08:36→23:16)
[2019-07-01] MEDS: allopurinoL 300 MG TABLET PO SCH (08:37)
[2019-07-01] MEDS: NYSTATIN 500,000 UNIT/5 ML UDCUP SWISH/SWAL SCH ×4 (08:37→22:26)
[2019-07-01] MEDS: DOCUSATE SODIUM 100 MG/10 ML UDCUP PO SCH ×2 (08:37→21:27)
[2019-07-01] MEDS: carvediloL 25 MG TABLET PO SCH ×2 (08:37→21:27)
[2019-07-01] MEDS: ASPIRIN CHEW 81 MG TABLET PO SCH (08:37)
[2019-07-01] MEDS: APIXABAN 5 MG TABLET PO SCH ×2 (08:37→21:27)
[2019-07-01] MEDS: PANTOPRAZOLE 40 MG VIAL IV SCH ×2 (08:37→21:28)
[2019-07-01] MEDS: AMIODARONE 200 MG TABLET PO SCH ×2 (08:38→21:27)
[2019-07-01] MEDS: FENOFIBRATE 145 MG TABLET PO SCH (08:38)
[2019-07-01 09:44] LABS: Basophils % 0.3 % (0.0-0.8); Eosinophils # 0.1 10*3/uL (0.0-0.87); Eosinophils % 0.8 % (0.00-10.9); Hematocrit 28.8 VOL% (42.0-52.0); Hemoglobin 8.6 GM/DL (14.0-18.0); Immature Granulocytes % 0.8 %; Immature Granulocytes Absolute 0.11 #; Lymphocytes # 1.6 10*3/uL (1.4-4.0); Lymphocytes % 12.2 % (21.2-54.2); Mean Corpuscular HGB Conc 29.9 GM/DL (32-36); Mean Corpuscular Volume 94.1 FL (87-102); Mean Platelet Volume 11.2 FL (9.6-12.0); Monocytes % 3.8 % (1.7-12.7); Neutrophils % 82.1 % (38.7-73.9); Platelet Count 155 T/CUMM (130-400); Red Blood Count 3.06 MC/CUMM (3.8-5.5); Red Cell Distribution Width 13.7 % (9.3-17.3); White Blood Count 13.3 T/CUMM (4-12)
[2019-07-01] MEDS: MENTHOL/ZINC OXIDE OINT 71 GM JAR TOP SCH (10:04)
[2019-07-01] MEDS: GLIMEPIRIDE 2 MG TABLET PO SCH ×3 (10:04→17:49)
[2019-07-01] MEDS: NOREPINEPHRINE 16 MG in SODIUM CHLORIDE 0.9% 234 ML IV PRN (11:28)
[2019-07-01] MEDS: DILTIAZEM CD 180 MG CAPSULE PO SCH (11:30)
[2019-07-01] MEDS ORDERED: VANCOMYCIN INJ 2,000 MG in SODIUM CHLORIDE 0.9% 500 ML IV ONE (12:00)
[2019-07-01] MEDS ORDERED: TOBRAMYCIN INJ 300 MG in SODIUM CHLORIDE 0.9% 100 ML IV PRN (13:32)
[2019-07-01] MEDS ORDERED: TOBRAMYCIN INJ 300 MG in SODIUM CHLORIDE 0.9% 100 ML IV ONE (14:30)
[2019-07-01] MEDS: DOPamine 800 MG in DEXTROSE 5% 230 ML IV PRN (14:48)
[2019-07-01] MEDS: DILTIAZEM 60 MG TABLET PO SCH ×2 (17:49→21:25)
[2019-07-02] MEDS: INSULIN REGULAR 100 UNIT/ML SUBCUT SCH ×4 (01:40→19:13)
[2019-07-02] MEDS: INSULIN GLARGINE 100 UNIT/ML SUBCUT SCH ×2 (01:40→21:49)
[2019-07-02] MEDS: MENTHOL/ZINC OXIDE OINT 71 GM JAR TOP SCH ×3 (01:41→21:47)
[2019-07-02] MEDS: PIPERACILLIN/TAZOBACTAM 3,375 MG in SODIUM CHLORIDE 0.9% 100 ML IV SCH ×3 (01:41→18:26)
[2019-07-02] MEDS: DOPamine 800 MG in DEXTROSE 5% 230 ML IV PRN (07:25)
[2019-07-02] MEDS: FENOFIBRATE 145 MG TABLET PO SCH (08:38)
[2019-07-02] MEDS: APIXABAN 5 MG TABLET PO SCH ×2 (08:40→21:48)
[2019-07-02] MEDS: NYSTATIN 500,000 UNIT/5 ML UDCUP SWISH/SWAL SCH ×4 (08:40→21:49)
[2019-07-02] MEDS: GLIMEPIRIDE 2 MG TABLET PO SCH ×2 (08:40→19:12)
[2019-07-02] MEDS: DILTIAZEM 60 MG TABLET PO SCH ×3 (08:40→21:48)
[2019-07-02] MEDS: allopurinoL 300 MG TABLET PO SCH (08:40)
[2019-07-02] MEDS: AMIODARONE 200 MG TABLET PO SCH ×2 (08:41→21:48)
[2019-07-02] MEDS: carvediloL 25 MG TABLET PO SCH ×2 (08:41→21:48)
[2019-07-02] MEDS: ASPIRIN CHEW 81 MG TABLET PO SCH (08:41)
[2019-07-02] MEDS: PANTOPRAZOLE 40 MG VIAL IV SCH ×2 (08:42→21:49)
[2019-07-02] MEDS: DOCUSATE SODIUM 100 MG/10 ML UDCUP PO SCH ×2 (08:42→21:48)
[2019-07-02] MEDS: DEXTROSE 5% NACL 0.45% 1,000 ML IV SCH (09:16)
[2019-07-02] MEDS: DEXTROSE 5% 1,000 ML IV SCH ×2 (11:18→21:30)
[2019-07-02] MEDS ORDERED: VANCOMYCIN INJ 2,000 MG in SODIUM CHLORIDE 0.9% 500 ML IV ONE (15:00)
[2019-07-02] MEDS ORDERED: TOBRAMYCIN INJ 300 MG in SODIUM CHLORIDE 0.9% 100 ML IV ONE (15:00)
[2019-07-03] MEDS: INSULIN REGULAR 100 UNIT/ML SUBCUT SCH ×4 (00:57→18:06)
[2019-07-03] MEDS: PIPERACILLIN/TAZOBACTAM 3,375 MG in SODIUM CHLORIDE 0.9% 100 ML IV SCH ×3 (00:59→18:05)
[2019-07-03] MEDS ORDERED: MIDAZOLAM 2 MG/2 ML VIAL IV ONE ×2 (07:26→07:35)
[2019-07-03] MEDS ORDERED: MIDAZOLAM 2 MG/2 ML VIAL ONE (07:28)
[2019-07-03] MEDS ORDERED: DOPamine 800 MG/250 ML PREMIX IV PRN (07:30)
[2019-07-03] MEDS ORDERED: MIDAZOLAM 10 MG/2 ML VIAL ONE (07:36)
[2019-07-03 07:49] LABS: Calcium 8.1 MG/DL (8.5-10.1)
[2019-07-03] MEDS: DEXTROSE 5% 1,000 ML IV SCH ×2 (08:00→20:00)
[2019-07-03] MEDS: DILTIAZEM 60 MG TABLET PO SCH ×3 (09:00→21:19)
[2019-07-03] MEDS: PANTOPRAZOLE 40 MG VIAL IV SCH ×2 (10:09→21:19)
[2019-07-03] MEDS ORDERED: POTASSIUM CHLORIDE 20 MEQ TABLET PO ONE ×2 (12:00→17:00)
[2019-07-03] MEDS: carvediloL 25 MG TABLET PO SCH ×2 (12:00→21:19)
[2019-07-03] MEDS: MENTHOL/ZINC OXIDE OINT 71 GM JAR TOP SCH ×2 (12:00→21:09)
[2019-07-03] MEDS: NYSTATIN 500,000 UNIT/5 ML UDCUP SWISH/SWAL SCH ×4 (12:01→21:19)
[2019-07-03] MEDS: ASPIRIN CHEW 81 MG TABLET PO SCH (12:16)
[2019-07-03] MEDS: allopurinoL 300 MG TABLET PO SCH (12:16)
[2019-07-03] MEDS: DOCUSATE SODIUM 100 MG/10 ML UDCUP PO SCH ×2 (12:16→21:19)
[2019-07-03] MEDS: GLIMEPIRIDE 2 MG TABLET PO SCH ×2 (12:16→17:53)
[2019-07-03] MEDS: APIXABAN 5 MG TABLET PO SCH ×2 (12:17→21:19)
[2019-07-03] MEDS: FENOFIBRATE 145 MG TABLET PO SCH (12:17)
[2019-07-03] MEDS: AMIODARONE 200 MG TABLET PO SCH ×2 (13:36→21:19)
[2019-07-03] MEDS: VANCOMYCIN INJ 2,000 MG in SODIUM CHLORIDE 0.9% 500 ML IV SCH (18:05)
[2019-07-03] MEDS: TOBRAMYCIN INJ 300 MG in SODIUM CHLORIDE 0.9% 100 ML IV SCH (19:14)
[2019-07-03] MEDS: INSULIN GLARGINE 100 UNIT/ML SUBCUT SCH (21:13)
[2019-07-03] MEDS: DEXTROSE 10% 250 ML BAG IV PRN (21:20)
[2019-07-04] MEDS: INSULIN REGULAR 100 UNIT/ML SUBCUT SCH ×4 (00:22→17:36)
[2019-07-04] MEDS: PIPERACILLIN/TAZOBACTAM 3,375 MG in SODIUM CHLORIDE 0.9% 100 ML IV SCH (01:40)
[2019-07-04] MEDS: DEXTROSE 5% 1,000 ML IV SCH ×2 (06:07→15:30)
[2019-07-04] MEDS: DEXTROSE 10% 250 ML BAG IV PRN (06:19)
[2019-07-04 07:28] LABS: Calcium 7.7 MG/DL (8.5-10.1); Osmolality,Calculated 283.8 MOS/KG (273-304)
[2019-07-04] MEDS ORDERED: POTASSIUM CHLORIDE 20 MEQ/15 ML UDCUP PO PRN (08:23)
[2019-07-04] MEDS: GLIMEPIRIDE 2 MG TABLET PO SCH (09:13)
[2019-07-04] MEDS: ASPIRIN CHEW 81 MG TABLET PO SCH (09:13)
[2019-07-04] MEDS: DILTIAZEM 60 MG TABLET PO SCH ×3 (09:14→22:02)
[2019-07-04] MEDS: AMIODARONE 200 MG TABLET PO SCH ×2 (09:14→22:04)
[2019-07-04] MEDS: APIXABAN 5 MG TABLET PO SCH ×2 (09:14→22:02)
[2019-07-04] MEDS: carvediloL 25 MG TABLET PO SCH ×2 (09:15→22:04)
[2019-07-04] MEDS: PANTOPRAZOLE 40 MG VIAL IV SCH (09:15)
[2019-07-04] MEDS: DOCUSATE SODIUM 100 MG/10 ML UDCUP PO SCH ×2 (09:15→22:05)
[2019-07-04] MEDS: POTASSIUM CHLORIDE 20 MEQ TABLET PO PRN ×3 (09:52→18:57)
[2019-07-04] MEDS: NYSTATIN 500,000 UNIT/5 ML UDCUP SWISH/SWAL SCH ×4 (10:04→22:06)
[2019-07-04] MEDS: MENTHOL/ZINC OXIDE OINT 71 GM JAR TOP SCH ×2 (10:50→22:02)
[2019-07-04] MEDS: allopurinoL 300 MG TABLET PO SCH (11:08)
[2019-07-04] MEDS: FENOFIBRATE 145 MG TABLET PO SCH (11:08)
[2019-07-04] MEDS: VANCOMYCIN INJ 2,000 MG in SODIUM CHLORIDE 0.9% 500 ML IV SCH (16:38)
[2019-07-04] MEDS: TOBRAMYCIN INJ 300 MG in SODIUM CHLORIDE 0.9% 100 ML IV SCH (18:58)
[2019-07-04] MEDS: INSULIN GLARGINE 100 UNIT/ML SUBCUT SCH (21:47)
[2019-07-04] MEDS: PANTOPRAZOLE 40 MG TABLET PO SCH (22:03)
[2019-07-05] MEDS: DEXTROSE 5% 1,000 ML IV SCH ×3 (00:39→09:03)
[2019-07-05] MEDS: INSULIN REGULAR 100 UNIT/ML SUBCUT SCH ×4 (00:39→17:25)
[2019-07-05 06:09] LABS: Osmolality,Calculated 289.6 MOS/KG (273-304)
[2019-07-05] MEDS: POTASSIUM CHLORIDE 20 MEQ TABLET PO PRN ×2 (07:07→09:05)
[2019-07-05] MEDS ORDERED: MAGNESIUM SULF RIDER 4 GM in PREMIX 1 EACH IV PRN (07:58)
[2019-07-05] MEDS: NYSTATIN 500,000 UNIT/5 ML UDCUP SWISH/SWAL SCH ×4 (09:04→22:29)
[2019-07-05] MEDS: ASPIRIN CHEW 81 MG TABLET PO SCH (09:04)
[2019-07-05] MEDS: carvediloL 25 MG TABLET PO SCH (09:04)
[2019-07-05] MEDS: GLIMEPIRIDE 2 MG TABLET PO SCH (09:04)
[2019-07-05] MEDS: FENOFIBRATE 145 MG TABLET PO SCH (09:04)
[2019-07-05] MEDS: PANTOPRAZOLE 40 MG TABLET PO SCH ×2 (09:05→22:24)
[2019-07-05] MEDS: AMIODARONE 200 MG TABLET PO SCH ×2 (09:05→22:26)
[2019-07-05] MEDS: allopurinoL 300 MG TABLET PO SCH (09:05)
[2019-07-05] MEDS: APIXABAN 5 MG TABLET PO SCH ×2 (09:05→22:29)
[2019-07-05] MEDS: MENTHOL/ZINC OXIDE OINT 71 GM JAR TOP SCH ×2 (09:05→22:33)
[2019-07-05] MEDS: DOCUSATE SODIUM 100 MG/10 ML UDCUP PO SCH ×2 (10:59→22:32)
[2019-07-05] MEDS: MAGNESIUM SULF RIDER 2 GM in PREMIX 1 EACH IV PRN (10:59)
[2019-07-05] MEDS: DILTIAZEM 60 MG TABLET PO SCH ×3 (11:28→22:24)
[2019-07-05] MEDS: DEXTROSE 5% KCL 20 MEQ 20 MEQ/1,000 ML BAG IV SCH (14:10)
[2019-07-05] MEDS: TOBRAMYCIN INJ 300 MG in SODIUM CHLORIDE 0.9% 100 ML IV SCH (17:27)
[2019-07-05 17:46] LABS: Vancomycin,Trough 17.4 UG/ML (10.0-20.0)
[2019-07-05] MEDS: VANCOMYCIN INJ 2,000 MG in SODIUM CHLORIDE 0.9% 500 ML IV SCH (18:18)
[2019-07-05] MEDS: ACETAMINOPHEN 500 MG TABLET PO PRN (20:16)
[2019-07-05] MEDS: carvediloL 12.5 MG TABLET PO SCH (22:26)
[2019-07-05] MEDS: INSULIN GLARGINE 100 UNIT/ML SUBCUT SCH (22:32)
[2019-07-06] MEDS: DEXTROSE 5% KCL 20 MEQ 20 MEQ/1,000 ML BAG IV SCH ×3 (01:15→20:28)
[2019-07-06] MEDS: INSULIN REGULAR 100 UNIT/ML SUBCUT SCH ×4 (01:34→18:16)
[2019-07-06 06:34] LABS: Basophils % 0.4 % (0.0-0.8); Eosinophils # 0.3 10*3/uL (0.0-0.87); Hematocrit 30.2 VOL% (42.0-52.0); Hemoglobin 9.1 GM/DL (14.0-18.0); Immature Granulocytes % 3.2 %; Immature Granulocytes Absolute 0.31 #; Lymphocytes # 1.2 10*3/uL (1.4-4.0); Lymphocytes % 12.4 % (21.2-54.2); Mean Corpuscular HGB Conc 30.1 GM/DL (32-36); Mean Corpuscular Volume 94.1 FL (87-102); Mean Platelet Volume 10.8 FL (9.6-12.0); Monocytes % 3.8 % (1.7-12.7); Neutrophils % 77.2 % (38.7-73.9); Platelet Count 152 T/CUMM (130-400); Red Blood Count 3.21 MC/CUMM (3.8-5.5); Red Cell Distribution Width 14.6 % (9.3-17.3); White Blood Count 9.6 T/CUMM (4-12)
[2019-07-06 06:49] LABS: Albumin 2.5 G/DL (3.4-5.0); Bilirubin,Total 0.4 MG/DL (0.2-1.0); Calcium 8.6 MG/DL (8.5-10.1); Osmolality,Calculated 284.8 MOS/KG (273-304); Total Protein 5.8 G/DL (6.4-8.3)
[2019-07-06] MEDS: allopurinoL 300 MG TABLET PO SCH (09:21)
[2019-07-06] MEDS: DILTIAZEM 60 MG TABLET PO SCH ×3 (09:21→23:08)
[2019-07-06] MEDS: AMIODARONE 200 MG TABLET PO SCH ×2 (09:21→23:08)
[2019-07-06] MEDS: POTASSIUM CHLORIDE 20 MEQ TABLET PO PRN ×3 (09:21→18:20)
[2019-07-06] MEDS: GLIMEPIRIDE 2 MG TABLET PO SCH (09:22)
[2019-07-06] MEDS: carvediloL 12.5 MG TABLET PO SCH ×2 (09:22→18:20)
[2019-07-06] MEDS: FENOFIBRATE 145 MG TABLET PO SCH (09:22)
[2019-07-06] MEDS: APIXABAN 5 MG TABLET PO SCH ×2 (09:22→23:08)
[2019-07-06] MEDS: MAGNESIUM SULF RIDER 2 GM in PREMIX 1 EACH IV PRN (09:23)
[2019-07-06] MEDS: NYSTATIN 500,000 UNIT/5 ML UDCUP SWISH/SWAL SCH ×4 (09:23→23:08)
[2019-07-06] MEDS: PANTOPRAZOLE 40 MG TABLET PO SCH ×2 (09:23→23:08)
[2019-07-06] MEDS: ASPIRIN CHEW 81 MG TABLET PO SCH (09:23)
[2019-07-06] MEDS: DOCUSATE SODIUM 100 MG/10 ML UDCUP PO SCH ×2 (10:15→23:08)
[2019-07-06] MEDS: MENTHOL/ZINC OXIDE OINT 71 GM JAR TOP SCH ×2 (10:15→23:08)
[2019-07-06] MEDS: VANCOMYCIN INJ 2,000 MG in SODIUM CHLORIDE 0.9% 500 ML IV SCH (16:20)
[2019-07-06] MEDS: TOBRAMYCIN INJ 300 MG in SODIUM CHLORIDE 0.9% 100 ML IV SCH (20:28)
[2019-07-06] MEDS: INSULIN GLARGINE 100 UNIT/ML SUBCUT SCH (23:08)
[2019-07-07] MEDS: DEXTROSE 5% KCL 20 MEQ 20 MEQ/1,000 ML BAG IV SCH ×4 (02:38→23:53)
[2019-07-07] MEDS: INSULIN REGULAR 100 UNIT/ML SUBCUT SCH ×4 (02:39→20:33)
[2019-07-07 09:48] LABS: Basophils % 0.5 % (0.0-0.8); Eosinophils # 0.3 10*3/uL (0.0-0.87); Eosinophils % 3.3 % (0.00-10.9); Hematocrit 31.7 VOL% (42.0-52.0); Hemoglobin 9.7 GM/DL (14.0-18.0); Immature Granulocytes % 1.7 %; Immature Granulocytes Absolute 0.14 #; Lymphocytes # 0.9 10*3/uL (1.4-4.0); Lymphocytes % 11.3 % (21.2-54.2); Mean Corpuscular HGB Conc 30.6 GM/DL (32-36); Mean Corpuscular Volume 92.4 FL (87-102); Mean Platelet Volume 10.6 FL (9.6-12.0); Monocytes % 4.8 % (1.7-12.7); Neutrophils % 78.4 % (38.7-73.9); Platelet Count 164 T/CUMM (130-400); Red Blood Count 3.43 MC/CUMM (3.8-5.5); White Blood Count 8.1 T/CUMM (4-12)
[2019-07-07] MEDS: DOCUSATE SODIUM 100 MG/10 ML UDCUP PO SCH ×2 (09:50→21:28)
[2019-07-07] MEDS: ASPIRIN CHEW 81 MG TABLET PO SCH (09:50)
[2019-07-07] MEDS: allopurinoL 300 MG TABLET PO SCH (09:50)
[2019-07-07] MEDS: FENOFIBRATE 145 MG TABLET PO SCH (09:50)
[2019-07-07] MEDS: DILTIAZEM 60 MG TABLET PO SCH ×3 (09:50→21:28)
[2019-07-07] MEDS: carvediloL 12.5 MG TABLET PO SCH ×2 (09:50→18:34)
[2019-07-07] MEDS: NYSTATIN 500,000 UNIT/5 ML UDCUP SWISH/SWAL SCH ×4 (09:50→21:30)
[2019-07-07] MEDS: AMIODARONE 200 MG TABLET PO SCH ×2 (09:50→21:28)
[2019-07-07] MEDS: MENTHOL/ZINC OXIDE OINT 71 GM JAR TOP SCH ×2 (09:51→21:35)
[2019-07-07] MEDS: GLIMEPIRIDE 2 MG TABLET PO SCH (09:51)
[2019-07-07] MEDS: PANTOPRAZOLE 40 MG TABLET PO SCH ×2 (09:51→21:28)
[2019-07-07] MEDS: APIXABAN 5 MG TABLET PO SCH ×2 (09:51→21:28)
[2019-07-07 10:07] LABS: Albumin 2.9 G/DL (3.4-5.0); Bilirubin,Total 0.5 MG/DL (0.2-1.0); Calcium 8.9 MG/DL (8.5-10.1); Total Protein 6.3 G/DL (6.4-8.3)
[2019-07-07] MEDS: VANCOMYCIN INJ 2,000 MG in SODIUM CHLORIDE 0.9% 500 ML IV SCH (18:34)
[2019-07-07] MEDS: TOBRAMYCIN INJ 300 MG in SODIUM CHLORIDE 0.9% 100 ML IV SCH (21:35)
[2019-07-07] MEDS: INSULIN GLARGINE 100 UNIT/ML SUBCUT SCH (22:05)
[2019-07-08] MEDS: INSULIN REGULAR 100 UNIT/ML SUBCUT SCH ×4 (00:37→18:53)
[2019-07-08] MEDS: DEXTROSE 5% KCL 20 MEQ 20 MEQ/1,000 ML BAG IV SCH ×3 (00:40→22:45)
[2019-07-08 09:19] LABS: Basophils % 0.4 % (0.0-0.8); Eosinophils # 0.3 10*3/uL (0.0-0.87); Eosinophils % 3.6 % (0.00-10.9); Hematocrit 29.7 VOL% (42.0-52.0); Hemoglobin 8.9 GM/DL (14.0-18.0); Immature Granulocytes % 0.8 %; Immature Granulocytes Absolute 0.06 #; Lymphocytes # 1.1 10*3/uL (1.4-4.0); Lymphocytes % 14.5 % (21.2-54.2); Mean Corpuscular Volume 93.1 FL (87-102); Mean Platelet Volume 10.4 FL (9.6-12.0); Monocytes % 5.9 % (1.7-12.7); Neutrophils % 74.8 % (38.7-73.9); Platelet Count 166 T/CUMM (130-400); Red Blood Count 3.19 MC/CUMM (3.8-5.5); Red Cell Distribution Width 14.8 % (9.3-17.3); White Blood Count 7.4 T/CUMM (4-12)
[2019-07-08 09:41] LABS: Calcium 8.9 MG/DL (8.5-10.1); Osmolality,Calculated 281.1 MOS/KG (273-304)
[2019-07-08] MEDS: NYSTATIN 500,000 UNIT/5 ML UDCUP SWISH/SWAL SCH ×4 (10:24→21:19)
[2019-07-08] MEDS: GLIMEPIRIDE 2 MG TABLET PO SCH (10:24)
[2019-07-08] MEDS: DOCUSATE SODIUM 100 MG/10 ML UDCUP PO SCH ×2 (10:24→21:19)
[2019-07-08] MEDS: PANTOPRAZOLE 40 MG TABLET PO SCH ×2 (10:25→21:19)
[2019-07-08] MEDS: ASPIRIN CHEW 81 MG TABLET PO SCH (10:41)
[2019-07-08] MEDS: AMIODARONE 200 MG TABLET PO SCH ×2 (10:41→21:19)
[2019-07-08] MEDS: DILTIAZEM 60 MG TABLET PO SCH ×3 (10:42→21:19)
[2019-07-08] MEDS: APIXABAN 5 MG TABLET PO SCH ×2 (10:42→21:19)
[2019-07-08] MEDS: MENTHOL/ZINC OXIDE OINT 71 GM JAR TOP SCH ×2 (10:43→21:25)
[2019-07-08] MEDS: FENOFIBRATE 145 MG TABLET PO SCH (10:43)
[2019-07-08] MEDS: allopurinoL 300 MG TABLET PO SCH (10:43)
[2019-07-08] MEDS: carvediloL 12.5 MG TABLET PO SCH ×2 (10:43→16:51)
[2019-07-08] MEDS: VANCOMYCIN INJ 2,000 MG in SODIUM CHLORIDE 0.9% 500 ML IV SCH (16:51)
[2019-07-08] MEDS: INSULIN GLARGINE 100 UNIT/ML SUBCUT SCH (21:20)
[2019-07-09] MEDS: INSULIN REGULAR 100 UNIT/ML SUBCUT SCH ×4 (01:57→17:43)
[2019-07-09 05:48] LABS: Basophils % 0.5 % (0.0-0.8); Eosinophils # 0.3 10*3/uL (0.0-0.87); Eosinophils % 3.7 % (0.00-10.9); Hematocrit 26.8 VOL% (42.0-52.0); Hemoglobin 8.1 GM/DL (14.0-18.0); Immature Granulocytes % 0.8 %; Immature Granulocytes Absolute 0.06 #; Lymphocytes # 1.1 10*3/uL (1.4-4.0); Lymphocytes % 14.9 % (21.2-54.2); Mean Corpuscular HGB Conc 30.2 GM/DL (32-36); Mean Corpuscular Volume 92.1 FL (87-102); Mean Platelet Volume 10.6 FL (9.6-12.0); Monocytes % 6.3 % (1.7-12.7); Neutrophils % 73.8 % (38.7-73.9); Platelet Count 161 T/CUMM (130-400); Red Blood Count 2.91 MC/CUMM (3.8-5.5); Red Cell Distribution Width 14.8 % (9.3-17.3); White Blood Count 7.7 T/CUMM (4-12)
[2019-07-09] MEDS ORDERED: TOBRAMYCIN INJ 300 MG in SODIUM CHLORIDE 0.9% 100 ML IV SCH (06:00)
[2019-07-09] MEDS: DEXTROSE 5% KCL 20 MEQ 20 MEQ/1,000 ML BAG IV SCH ×2 (07:03→17:42)
[2019-07-09] MEDS: carvediloL 12.5 MG TABLET PO SCH ×2 (09:03→17:42)
[2019-07-09] MEDS: GLIMEPIRIDE 2 MG TABLET PO SCH (09:03)
[2019-07-09] MEDS: ASPIRIN CHEW 81 MG TABLET PO SCH (09:04)
[2019-07-09] MEDS: DOCUSATE SODIUM 100 MG/10 ML UDCUP PO SCH ×2 (09:04→22:30)
[2019-07-09] MEDS: MENTHOL/ZINC OXIDE OINT 71 GM JAR TOP SCH ×2 (09:04→22:34)
[2019-07-09] MEDS: DILTIAZEM 60 MG TABLET PO SCH ×3 (09:04→22:28)
[2019-07-09] MEDS: NYSTATIN 500,000 UNIT/5 ML UDCUP SWISH/SWAL SCH ×4 (09:05→22:34)
[2019-07-09] MEDS: FENOFIBRATE 145 MG TABLET PO SCH (09:05)
[2019-07-09] MEDS: PANTOPRAZOLE 40 MG TABLET PO SCH ×2 (09:05→22:33)
[2019-07-09] MEDS: APIXABAN 5 MG TABLET PO SCH ×2 (09:05→22:28)
[2019-07-09] MEDS: AMIODARONE 200 MG TABLET PO SCH ×2 (09:05→22:27)
[2019-07-09] MEDS: allopurinoL 300 MG TABLET PO SCH (09:05)
[2019-07-09 15:00] LABS: Calcium 9.1 MG/DL (8.5-10.1); Osmolality,Calculated 280.4 MOS/KG (273-304)
[2019-07-09] MEDS: VANCOMYCIN INJ 2,000 MG in SODIUM CHLORIDE 0.9% 500 ML IV SCH (17:42)
[2019-07-10] MEDS: INSULIN GLARGINE 100 UNIT/ML SUBCUT SCH ×2 (00:23→23:55)
[2019-07-10] MEDS: INSULIN REGULAR 100 UNIT/ML SUBCUT SCH ×4 (00:24→23:32)
[2019-07-10] MEDS: DEXTROSE 5% KCL 20 MEQ 20 MEQ/1,000 ML BAG IV SCH ×3 (03:33→23:56)
[2019-07-10 05:04] LABS: Basophils % 0.4 % (0.0-0.8); Eosinophils # 0.3 10*3/uL (0.0-0.87); Eosinophils % 4.2 % (0.00-10.9); Hematocrit 27.1 VOL% (42.0-52.0); Immature Granulocytes % 0.6 %; Immature Granulocytes Absolute 0.04 #; Lymphocytes # 1.1 10*3/uL (1.4-4.0); Lymphocytes % 15.9 % (21.2-54.2); Mean Corpuscular HGB Conc 29.5 GM/DL (32-36); Mean Corpuscular Volume 93.4 FL (87-102); Mean Platelet Volume 10.8 FL (9.6-12.0); Monocytes % 5.9 % (1.7-12.7); Platelet Count 155 T/CUMM (130-400); Red Cell Distribution Width 14.6 % (9.3-17.3); White Blood Count 7.1 T/CUMM (4-12)
[2019-07-10 05:20] LABS: Calcium 8.5 MG/DL (8.5-10.1); Osmolality,Calculated 278.4 MOS/KG (273-304)
[2019-07-10] MEDS: MAGNESIUM SULF RIDER 2 GM in PREMIX 1 EACH IV PRN (06:25)
[2019-07-10] MEDS: POTASSIUM CHLORIDE 20 MEQ TABLET PO PRN (06:26)
[2019-07-10] MEDS: APIXABAN 5 MG TABLET PO SCH ×2 (10:24→23:15)
[2019-07-10] MEDS: DILTIAZEM 60 MG TABLET PO SCH ×3 (10:25→23:17)
[2019-07-10] MEDS: allopurinoL 300 MG TABLET PO SCH (10:25)
[2019-07-10] MEDS: AMIODARONE 200 MG TABLET PO SCH ×2 (10:25→23:16)
[2019-07-10] MEDS: FENOFIBRATE 145 MG TABLET PO SCH (10:26)
[2019-07-10] MEDS: carvediloL 12.5 MG TABLET PO SCH ×2 (10:26→17:20)
[2019-07-10] MEDS: GLIMEPIRIDE 2 MG TABLET PO SCH (10:26)
[2019-07-10] MEDS: ASPIRIN CHEW 81 MG TABLET PO SCH (10:26)
[2019-07-10] MEDS: PANTOPRAZOLE 40 MG TABLET PO SCH ×2 (10:26→23:16)
[2019-07-10] MEDS: NYSTATIN 500,000 UNIT/5 ML UDCUP SWISH/SWAL SCH ×4 (10:26→23:19)
[2019-07-10] MEDS: ACETAMINOPHEN 500 MG TABLET PO PRN ×2 (10:30→23:54)
[2019-07-10] MEDS: DOCUSATE SODIUM 100 MG/10 ML UDCUP PO SCH ×2 (10:30→23:18)
[2019-07-10] MEDS: POTASSIUM CHLORIDE RIDER 10 MEQ in PREMIX 1 EACH IV PRN ×3 (10:31→18:42)
[2019-07-10] MEDS: MENTHOL/ZINC OXIDE OINT 71 GM JAR TOP SCH ×2 (10:42→23:21)
[2019-07-11] MEDS: INSULIN REGULAR 100 UNIT/ML SUBCUT SCH ×4 (00:22→17:36)
[2019-07-11] MEDS: POTASSIUM CHLORIDE 20 MEQ TABLET PO PRN ×3 (01:05→12:13)
[2019-07-11 06:35] LABS: Basophils % 0.6 % (0.0-0.8); Eosinophils # 0.3 10*3/uL (0.0-0.87); Eosinophils % 5.2 % (0.00-10.9); Hematocrit 27.3 VOL% (42.0-52.0); Hemoglobin 8.1 GM/DL (14.0-18.0); Immature Granulocytes % 0.9 %; Immature Granulocytes Absolute 0.06 #; Lymphocytes # 0.9 10*3/uL (1.4-4.0); Mean Corpuscular HGB Conc 29.7 GM/DL (32-36); Mean Corpuscular Volume 93.2 FL (87-102); Mean Platelet Volume 10.3 FL (9.6-12.0); Monocytes % 6.7 % (1.7-12.7); Neutrophils % 72.6 % (38.7-73.9); Platelet Count 155 T/CUMM (130-400); Red Blood Count 2.93 MC/CUMM (3.8-5.5); Red Cell Distribution Width 14.3 % (9.3-17.3); White Blood Count 6.6 T/CUMM (4-12)
[2019-07-11 06:52] LABS: Calcium 8.3 MG/DL (8.5-10.1); Osmolality,Calculated 281.3 MOS/KG (273-304)
[2019-07-11] MEDS: APIXABAN 5 MG TABLET PO SCH ×2 (09:31→21:40)
[2019-07-11] MEDS: NYSTATIN 500,000 UNIT/5 ML UDCUP SWISH/SWAL SCH ×4 (09:31→21:40)
[2019-07-11] MEDS: FENOFIBRATE 145 MG TABLET PO SCH (09:31)
[2019-07-11] MEDS: GLIMEPIRIDE 2 MG TABLET PO SCH (09:31)
[2019-07-11] MEDS: allopurinoL 300 MG TABLET PO SCH (09:31)
[2019-07-11] MEDS: carvediloL 12.5 MG TABLET PO SCH ×2 (09:32→16:51)
[2019-07-11] MEDS: ASPIRIN CHEW 81 MG TABLET PO SCH (09:32)
[2019-07-11] MEDS: PANTOPRAZOLE 40 MG TABLET PO SCH ×2 (09:32→21:42)
[2019-07-11] MEDS: AMIODARONE 200 MG TABLET PO SCH ×2 (09:32→21:40)
[2019-07-11] MEDS: DILTIAZEM 60 MG TABLET PO SCH ×3 (09:32→21:40)
[2019-07-11] MEDS: MAGNESIUM SULF RIDER 2 GM in PREMIX 1 EACH IV PRN (09:33)
[2019-07-11] MEDS: MENTHOL/ZINC OXIDE OINT 71 GM JAR TOP SCH ×2 (09:39→21:41)
[2019-07-11] MEDS: DEXTROSE 5% KCL 20 MEQ 20 MEQ/1,000 ML BAG IV SCH ×2 (10:06→21:41)
[2019-07-11] MEDS: DOCUSATE SODIUM 100 MG/10 ML UDCUP PO SCH ×2 (11:19→21:40)
[2019-07-11] MEDS: INSULIN GLARGINE 100 UNIT/ML SUBCUT SCH (21:42)
[2019-07-12] MEDS: INSULIN REGULAR 100 UNIT/ML SUBCUT SCH ×4 (01:02→21:41)
[2019-07-12 06:50] LABS: Calcium 8.7 MG/DL (8.5-10.1); Osmolality,Calculated 284.1 MOS/KG (273-304)
[2019-07-12] MEDS: DEXTROSE 5% KCL 20 MEQ 20 MEQ/1,000 ML BAG IV SCH ×2 (09:52→17:34)
[2019-07-12] MEDS: AMIODARONE 200 MG TABLET PO SCH ×2 (09:54→21:41)
[2019-07-12] MEDS: DOCUSATE SODIUM 100 MG/10 ML UDCUP PO SCH ×2 (09:54→21:41)
[2019-07-12] MEDS: DILTIAZEM 60 MG TABLET PO SCH ×3 (09:54→21:40)
[2019-07-12] MEDS: ASPIRIN CHEW 81 MG TABLET PO SCH (09:54)
[2019-07-12] MEDS: FENOFIBRATE 145 MG TABLET PO SCH (09:54)
[2019-07-12] MEDS: NYSTATIN 500,000 UNIT/5 ML UDCUP SWISH/SWAL SCH ×4 (09:54→21:40)
[2019-07-12] MEDS: PANTOPRAZOLE 40 MG TABLET PO SCH ×2 (09:54→21:40)
[2019-07-12] MEDS: GLIMEPIRIDE 2 MG TABLET PO SCH (09:54)
[2019-07-12] MEDS: allopurinoL 300 MG TABLET PO SCH (09:54)
[2019-07-12] MEDS: APIXABAN 5 MG TABLET PO SCH ×2 (09:55→21:40)
[2019-07-12] MEDS: carvediloL 12.5 MG TABLET PO SCH ×2 (09:55→17:34)
[2019-07-12] MEDS: MENTHOL/ZINC OXIDE OINT 71 GM JAR TOP SCH ×2 (09:55→21:41)
[2019-07-12] MEDS: INSULIN GLARGINE 100 UNIT/ML SUBCUT SCH (21:42)
[2019-07-13] MEDS: INSULIN REGULAR 100 UNIT/ML SUBCUT SCH ×4 (02:36→17:15)
[2019-07-13] MEDS: DEXTROSE 5% KCL 20 MEQ 20 MEQ/1,000 ML BAG IV SCH ×3 (02:37→15:19)
[2019-07-13 06:52] LABS: Basophils # 0.1 10*3/uL (0.0-0.2); Basophils % 0.8 % (0.0-0.8); Eosinophils # 0.3 10*3/uL (0.0-0.87); Eosinophils % 4.1 % (0.00-10.9); Hematocrit 28.8 VOL% (42.0-52.0); Hemoglobin 8.7 GM/DL (14.0-18.0); Immature Granulocytes Absolute 0.06 #; Lymphocytes # 1.4 10*3/uL (1.4-4.0); Lymphocytes % 22.5 % (21.2-54.2); Mean Corpuscular HGB Conc 30.2 GM/DL (32-36); Mean Corpuscular Volume 91.7 FL (87-102); Mean Platelet Volume 10.4 FL (9.6-12.0); Monocytes % 8.1 % (1.7-12.7); Neutrophils % 63.5 % (38.7-73.9); Platelet Count 177 T/CUMM (130-400); Red Blood Count 3.14 MC/CUMM (3.8-5.5); Red Cell Distribution Width 14.1 % (9.3-17.3); White Blood Count 6.1 T/CUMM (4-12)
[2019-07-13 07:03] LABS: Calcium 8.8 MG/DL (8.5-10.1); Osmolality,Calculated 276.8 MOS/KG (273-304)
[2019-07-13] MEDS: APIXABAN 5 MG TABLET PO SCH ×2 (09:51→20:43)
[2019-07-13] MEDS: DILTIAZEM 60 MG TABLET PO SCH ×3 (09:51→20:43)
[2019-07-13] MEDS: carvediloL 12.5 MG TABLET PO SCH ×2 (09:51→16:14)
[2019-07-13] MEDS: NYSTATIN 500,000 UNIT/5 ML UDCUP SWISH/SWAL SCH ×4 (09:51→20:43)
[2019-07-13] MEDS: allopurinoL 300 MG TABLET PO SCH (09:52)
[2019-07-13] MEDS: FENOFIBRATE 145 MG TABLET PO SCH (09:52)
[2019-07-13] MEDS: MENTHOL/ZINC OXIDE OINT 71 GM JAR TOP SCH ×2 (09:52→20:46)
[2019-07-13] MEDS: DOCUSATE SODIUM 100 MG/10 ML UDCUP PO SCH ×2 (09:52→20:46)
[2019-07-13] MEDS: AMIODARONE 200 MG TABLET PO SCH ×2 (09:52→20:43)
[2019-07-13] MEDS: GLIMEPIRIDE 2 MG TABLET PO SCH (09:52)
[2019-07-13] MEDS: ASPIRIN CHEW 81 MG TABLET PO SCH (09:52)
[2019-07-13] MEDS: PANTOPRAZOLE 40 MG TABLET PO SCH ×2 (09:52→20:43)
[2019-07-13] MEDS: INSULIN GLARGINE 100 UNIT/ML SUBCUT SCH (20:46)
[2019-07-14] MEDS: INSULIN REGULAR 100 UNIT/ML SUBCUT SCH ×4 (01:07→18:12)
[2019-07-14] MEDS: DEXTROSE 5% KCL 20 MEQ 20 MEQ/1,000 ML BAG IV SCH ×2 (01:51→14:48)
[2019-07-14 09:46] LABS: Calcium 8.7 MG/DL (8.5-10.1)
[2019-07-14] MEDS: PANTOPRAZOLE 40 MG TABLET PO SCH (09:53)
[2019-07-14] MEDS: DILTIAZEM 60 MG TABLET PO SCH ×2 (09:53→14:00)
[2019-07-14] MEDS: NYSTATIN 500,000 UNIT/5 ML UDCUP SWISH/SWAL SCH ×3 (09:53→16:28)
[2019-07-14] MEDS: DOCUSATE SODIUM 100 MG/10 ML UDCUP PO SCH ×2 (09:53→09:59)
[2019-07-14] MEDS: ASPIRIN CHEW 81 MG TABLET PO SCH (09:54)
[2019-07-14] MEDS: AMIODARONE 200 MG TABLET PO SCH (09:54)
[2019-07-14] MEDS: FENOFIBRATE 145 MG TABLET PO SCH (09:54)
[2019-07-14] MEDS: allopurinoL 300 MG TABLET PO SCH (09:54)
[2019-07-14] MEDS: APIXABAN 5 MG TABLET PO SCH (09:55)
[2019-07-14] MEDS: carvediloL 12.5 MG TABLET PO SCH ×2 (09:55→16:28)
[2019-07-14] MEDS: MENTHOL/ZINC OXIDE OINT 71 GM JAR TOP SCH (09:55)
[2019-07-14] MEDS: GLIMEPIRIDE 2 MG TABLET PO SCH (09:55)
[2019-07-14 16:06] VITALS: BP 126/84
[2019-07-14] MEDS: ACETAMINOPHEN 500 MG TABLET PO PRN (16:35)
== END 2019-07-14 18:35 | disposition home health service (06) | DRG 207 ==
LOC: N.ED 13:00 → N.EDINP 14:49 → N.ICU 15:32 → N.CVR 06-09 13:20 → N.CLINP 06-10 23:43 → N.TELES 06-20 05:59 → N.ICU 06-29 01:37 → N.CLINP 07-02 17:28 → N.TELES 07-04 11:37
PROVIDERS: ADMIT Family Medicine; ATTEND Family Medicine

== ENCOUNTER 2020-11-15 11:59 | Inpatient (IN) ==
[2020-11-15] MEDS ORDERED: SODIUM CHLORIDE 0.9% 1,000 ML IV STA (12:27)
[2020-11-15] MEDS ORDERED: HYDROmorphone 2 MG/1 ML VIAL IV STA (12:27)
[2020-11-15] MEDS ORDERED: ONDANSETRON 4 MG/2 ML VIAL IV STA (12:27)
[2020-11-15] MEDS ORDERED: GLUCAGON 1 MG VIAL IM PRN (13:48)
[2020-11-15] MEDS ORDERED: TISSUE ADHESIVE 1 EACH APPLICATOR TOP ONE (14:15)
[2020-11-15] MEDS ORDERED: HEPARIN 5,000 UNIT/1 ML VIAL ONE (14:15)
[2020-11-15] MEDS ORDERED: LIDOCAINE 1%/EPI INJ 20 ML VIAL ONE (14:16)
[2020-11-15 16:34] LABS: Albumin 3.5 G/DL (3.4-5.0); Bilirubin,Direct 0.22 MG/DL (0.0-0.20); Bilirubin,Indirect 0.6 MG/DL (0.0-1.0); Bilirubin,Total 0.8 MG/DL (0.20-1.00); Total Protein 6.8 G/DL (6.4-8.2)
[2020-11-15] MEDS ORDERED: GLIMEPIRIDE 2 MG TABLET PO SCH (17:00)
[2020-11-15] MEDS: FUROSEMIDE 40 MG TABLET PO SCH (17:25)
[2020-11-15] MEDS: SODIUM CHLORIDE 0.9% 1,000 ML IV SCH (17:25)
[2020-11-15 18:45] LABS: Calcium 7.5 MG/DL (8.5-10.1); Potassium 4.3 MMOL/L (3.5-5.1)
[2020-11-15 18:46] LABS: Osmolality,Calculated 287.8 MOS/KG (273-304)
[2020-11-15] MEDS: INSULIN LISPRO 100 UNIT/ML SUBCUT SCH (18:55)
[2020-11-15] MEDS: DEXTROSE 50% 25 GM/50 ML VIAL IV PRN ×3 (19:09→23:56)
[2020-11-15] MEDS: HYDROmorphone 2 MG/1 ML VIAL IV PRN (20:38)
[2020-11-15] MEDS: AMIODARONE 200 MG TABLET PO SCH (20:40)
[2020-11-15] MEDS: carvediloL 25 MG TABLET PO SCH (20:40)
[2020-11-15] MEDS: ASCORBIC ACID 500 MG TABLET PO SCH (20:40)
[2020-11-15] MEDS: DOCUSATE SODIUM 100 MG CAPSULE PO SCH (20:40)
[2020-11-15] MEDS ORDERED: APIXABAN 5 MG TABLET PO SCH (21:00)
[2020-11-16] MEDS: INSULIN LISPRO 100 UNIT/ML SUBCUT SCH ×5 (00:05→21:21)
[2020-11-16] MEDS: DEXTROSE 5% NACL 0.45% 1,000 ML IV SCH ×2 (00:10→08:35)
[2020-11-16] MEDS: ONDANSETRON 4 MG/2 ML VIAL IV PRN ×2 (01:32→17:03)
[2020-11-16] MEDS: HYDROmorphone 2 MG/1 ML VIAL IV PRN (03:42)
[2020-11-16] MEDS: DEXTROSE 50% 25 GM/50 ML VIAL IV PRN ×3 (05:40→17:02)
[2020-11-16 06:49] LABS: Basophils % 0.1 % (0.0-0.8); Eosinophils % 0.3 % (0.00-10.9); Hematocrit 45.8 VOL% (42.0-52.0); Hemoglobin 14.2 GM/DL (14.0-18.0); Immature Granulocytes % 0.9 %; Immature Granulocytes Absolute 0.13 #; Lymphocytes # 0.6 10*3/uL (1.4-4.0); Lymphocytes % 4.3 % (21.2-54.2); Mean Corpuscular Volume 93.9 FL (87-102); Mean Platelet Volume 10.5 FL (9.6-12.0); Monocytes % 7.3 % (1.7-12.7); Neutrophils % 87.1 % (38.7-73.9); Platelet Count 102 T/CUMM (130-400); Red Blood Count 4.88 MC/CUMM (3.8-5.5); Red Cell Distribution Width 14.6 % (9.3-17.3); White Blood Count 14.7 T/CUMM (4-12)
[2020-11-16 07:09] LABS: Osmolality,Calculated 289.1 MOS/KG (273-304); Potassium 4.3 MMOL/L (3.5-5.1)
[2020-11-16 07:12] LABS: Band Neutrophils 6 % (0-10); Eosinophils 1 % (0-10); Hypochromasia 1+; Lymphocytes 4 % (20-55); Microcytosis 1+; Segmented Neutrophils 82 % (50-85); Total Cells Counted 100
[2020-11-16 07:13] LABS: Ovalocytes Slight; Platelet Estimate Decreased
[2020-11-16] MEDS ORDERED: HEPARIN 5,000 UNIT/1 ML VIAL ONE (08:24)
[2020-11-16] MEDS ORDERED: TISSUE ADHESIVE 1 EACH APPLICATOR TOP ONE (08:24)
[2020-11-16] MEDS ORDERED: LIDOCAINE 1%/EPI INJ 20 ML VIAL ONE (08:25)
[2020-11-16] MEDS: FUROSEMIDE 40 MG TABLET PO SCH (08:33)
[2020-11-16] MEDS: ASPIRIN EC 81 MG TABLET PO SCH (08:33)
[2020-11-16] MEDS: APIXABAN 2.5 MG TABLET PO SCH ×2 (08:33→21:20)
[2020-11-16] MEDS: PANTOPRAZOLE 40 MG TABLET PO SCH (08:33)
[2020-11-16] MEDS: DOCUSATE SODIUM 100 MG CAPSULE PO SCH ×2 (08:33→21:21)
[2020-11-16] MEDS: CHOLECALCIFEROL 1,000 UNIT TABLET PO SCH (08:33)
[2020-11-16] MEDS: ASCORBIC ACID 500 MG TABLET PO SCH ×2 (08:33→21:20)
[2020-11-16] MEDS: allopurinoL 300 MG TABLET PO SCH (08:33)
[2020-11-16] MEDS: carvediloL 25 MG TABLET PO SCH ×2 (08:34→21:20)
[2020-11-16] MEDS: AMIODARONE 200 MG TABLET PO SCH ×2 (08:34→21:20)
[2020-11-16] MEDS: PIPERACILLIN/TAZOBACTAM 3,375 MG in SODIUM CHLORIDE 0.9% 100 ML IV SCH ×2 (08:35→21:20)
[2020-11-16] MEDS: SODIUM CHLORIDE 0.9% 1,000 ML IV SCH ×2 (11:23)
[2020-11-16 11:36] LABS: Basophils % 0.2 % (0.0-0.8); Eosinophils # 0.1 10*3/uL (0.0-0.87); Eosinophils % 0.3 % (0.00-10.9); Hematocrit 47.2 VOL% (42.0-52.0); Hemoglobin 14.5 GM/DL (14.0-18.0); Immature Granulocytes % 1.1 %; Immature Granulocytes Absolute 0.16 #; Lymphocytes # 0.6 10*3/uL (1.4-4.0); Lymphocytes % 3.7 % (21.2-54.2); Mean Corpuscular HGB Conc 30.7 GM/DL (32-36); Mean Corpuscular Volume 92.5 FL (87-102); Mean Platelet Volume 10.2 FL (9.6-12.0); Monocytes % 10.3 % (1.7-12.7); Neutrophils % 84.4 % (38.7-73.9); Red Cell Distribution Width 14.6 % (9.3-17.3); White Blood Count 14.8 T/CUMM (4-12)
[2020-11-16] MEDS: DEXTROSE 10% 1,000 ML IV SCH ×2 (11:39→17:43)
[2020-11-16 11:44] LABS: Platelet Count 98 T/CUMM (130-400)
[2020-11-16 11:48] LABS: ABG Base Excess -5.8 MMOL/L (-2.5-2.5); ABG HCO3 25.8 MMOL/L (20-26); ABG Oxygen Saturation 90.7 % (95-100); ABG PO2 67.4 MM HG (80-95); ABG TCO2 28.4 MMOL/L (23-27)
[2020-11-16 11:49] LABS: ABG PCO2 83.7 MM HG (35-48); ABG PH 7.107 (7.35-7.45)
[2020-11-16 11:56] LABS: Band Neutrophils 2 % (0-10); Lymphocytes 5 % (20-55); Platelet Estimate Decreased; Segmented Neutrophils 89 % (50-85); Total Cells Counted 100
[2020-11-16 12:07] LABS: Bilirubin,Total 0.8 MG/DL (0.20-1.00); Calcium 6.7 MG/DL (8.5-10.1); Osmolality,Calculated 287.2 MOS/KG (273-304); Potassium 5.1 MMOL/L (3.5-5.1); Total Protein 6.7 G/DL (6.4-8.2)
[2020-11-16] MEDS ORDERED: MAGNESIUM SULF RIDER 4 GM/100 ML PREMIX IV PRN (13:14)
[2020-11-16] MEDS ORDERED: MAGNESIUM SULF RIDER 2 GM/50 ML PREMIX IV PRN (13:14)
[2020-11-16 13:18] LABS: Allen Test Positive; Pt O2 Delivery Device BIPAP
[2020-11-16 13:19] LABS: ABG Base Excess -3.1 MMOL/L (-2.5-2.5); ABG HCO3 21.8 MMOL/L (20-26); ABG Oxygen Saturation 97.7 % (95-100); ABG PCO2 53.8 MM HG (35-48); ABG PH 7.272 (7.35-7.45); ABG PO2 95.9 MM HG (80-95); ABG TCO2 21.8 MMOL/L (23-27)
[2020-11-17 05:14] LABS: Basophils % 0.3 % (0.0-0.8); Eosinophils % 0.4 % (0.00-10.9); Hematocrit 46.6 VOL% (42.0-52.0); Hemoglobin 14.5 GM/DL (14.0-18.0); Immature Granulocytes % 1.1 %; Immature Granulocytes Absolute 0.12 #; Lymphocytes # 0.9 10*3/uL (1.4-4.0); Lymphocytes % 7.8 % (21.2-54.2); Mean Corpuscular HGB Conc 31.1 GM/DL (32-36); Mean Corpuscular Volume 92.3 FL (87-102); Mean Platelet Volume 10.4 FL (9.6-12.0); Monocytes % 13.9 % (1.7-12.7); Neutrophils % 76.5 % (38.7-73.9); Platelet Count 117 T/CUMM (130-400); Red Blood Count 5.05 MC/CUMM (3.8-5.5); Red Cell Distribution Width 14.6 % (9.3-17.3); White Blood Count 11.3 T/CUMM (4-12)
[2020-11-17 05:34] LABS: Albumin 2.9 G/DL (3.4-5.0); Bilirubin,Total 0.8 MG/DL (0.20-1.00); Calcium 6.8 MG/DL (8.5-10.1); Osmolality,Calculated 290.2 MOS/KG (273-304); Potassium 4.1 MMOL/L (3.5-5.1); Total Protein 6.7 G/DL (6.4-8.2)
[2020-11-17 05:36] LABS: Risk Ratio 10.29; VLDL Cholesterol 23.2 MG/DL
[2020-11-17 05:40] LABS: Lymphocytes 11 % (20-55); Platelet Estimate Decreased; Segmented Neutrophils 83 % (50-85); Total Cells Counted 100
[2020-11-17] MEDS: INSULIN LISPRO 100 UNIT/ML SUBCUT SCH ×4 (07:15→20:43)
[2020-11-17] MEDS: DEXTROSE 10% 1,000 ML IV SCH (08:05)
[2020-11-17] MEDS: PIPERACILLIN/TAZOBACTAM 3,375 MG in SODIUM CHLORIDE 0.9% 100 ML IV SCH ×2 (08:06→20:41)
[2020-11-17] MEDS: ASPIRIN EC 81 MG TABLET PO SCH (08:24)
[2020-11-17] MEDS: CHOLECALCIFEROL 1,000 UNIT TABLET PO SCH (08:25)
[2020-11-17] MEDS: ASCORBIC ACID 500 MG TABLET PO SCH ×2 (08:26→20:43)
[2020-11-17] MEDS: PANTOPRAZOLE 40 MG TABLET PO SCH (08:26)
[2020-11-17 09:22] LABS: ABG Base Excess -4.4 MMOL/L (-2.5-2.5); ABG HCO3 20.8 MMOL/L (20-26); ABG Oxygen Saturation 95.6 % (95-100); ABG PCO2 53.4 MM HG (35-48); ABG PH 7.257 (7.35-7.45); ABG PO2 84.8 MM HG (80-95); ABG TCO2 20.9 MMOL/L (23-27); Allen Test Positive; Pt O2 Delivery Device BIPAP
[2020-11-17] MEDS: DOCUSATE SODIUM 100 MG CAPSULE PO SCH ×3 (11:00→20:43)
[2020-11-17] MEDS: allopurinoL 300 MG TABLET PO SCH ×3 (11:01→14:26)
[2020-11-17] MEDS: APIXABAN 2.5 MG TABLET PO SCH ×4 (11:01→20:43)
[2020-11-17] MEDS: carvediloL 25 MG TABLET PO SCH ×4 (11:01→20:43)
[2020-11-17] MEDS: AMIODARONE 200 MG TABLET PO SCH ×4 (11:01→20:43)
[2020-11-17] MEDS: DEXTROSE 5% 1,000 ML IV SCH (19:20)
[2020-11-17] MEDS: ONDANSETRON 4 MG/2 ML VIAL IV PRN (20:42)
[2020-11-18] MEDS: HYDROmorphone 2 MG/1 ML VIAL IV PRN ×2 (01:19→22:51)
[2020-11-18] MEDS ORDERED: INSULIN LISPRO 100 UNIT/ML SUBCUT SCH (01:25)
[2020-11-18] MEDS: DEXTROSE 5% 1,000 ML IV SCH (03:48)
[2020-11-18 03:50] LABS: Basophils % 0.4 % (0.0-0.8); Eosinophils # 0.1 10*3/uL (0.0-0.87); Eosinophils % 1.1 % (0.00-10.9); Hematocrit 39.2 VOL% (42.0-52.0); Immature Granulocytes % 1.3 %; Immature Granulocytes Absolute 0.07 #; Lymphocytes # 0.6 10*3/uL (1.4-4.0); Lymphocytes % 11.8 % (21.2-54.2); Mean Corpuscular HGB Conc 31.9 GM/DL (32-36); Mean Corpuscular Volume 90.1 FL (87-102); Mean Platelet Volume 10.4 FL (9.6-12.0); Monocytes % 16.8 % (1.7-12.7); Neutrophils % 68.6 % (38.7-73.9); Platelet Count 127 T/CUMM (130-400); Red Blood Count 4.35 MC/CUMM (3.8-5.5); Red Cell Distribution Width 14.1 % (9.3-17.3)
[2020-11-18 03:52] LABS: Hemoglobin 12.5 GM/DL (14.0-18.0); White Blood Count 5.3 T/CUMM (4-12)
[2020-11-18 04:12] LABS: Band Neutrophils 9 % (0-10); Eosinophils 1 % (0-10); Lymphocytes 19 % (20-55); Nucleated Red Blood Cells 1 (0-5); Segmented Neutrophils 57 % (50-85); Total Cells Counted 100
[2020-11-18 04:13] LABS: Hypochromasia Slight; Microcytosis Slight; Platelet Estimate Normal
[2020-11-18] MEDS: INSULIN LISPRO 100 UNIT/ML SUBCUT SCH ×6 (04:21→20:35)
[2020-11-18 04:23] LABS: Albumin 2.4 G/DL (3.4-5.0); Bilirubin,Total 0.6 MG/DL (0.20-1.00); Calcium 6.4 MG/DL (8.5-10.1); Osmolality,Calculated 296.4 MOS/KG (273-304); Potassium 3.8 MMOL/L (3.5-5.1)
[2020-11-18 04:24] LABS: ABG Base Excess -3.1 MMOL/L (-2.5-2.5); ABG HCO3 21.8 MMOL/L (20-26); ABG Oxygen Saturation 97.7 % (95-100); ABG PCO2 54.5 MM HG (35-48); ABG PH 7.267 (7.35-7.45); ABG TCO2 22.1 MMOL/L (23-27)
[2020-11-18] MEDS: PIPERACILLIN/TAZOBACTAM 3,375 MG in SODIUM CHLORIDE 0.9% 100 ML IV SCH ×2 (08:12→21:35)
[2020-11-18] MEDS: AMIODARONE 200 MG TABLET PO SCH ×2 (08:17→21:33)
[2020-11-18] MEDS: ASCORBIC ACID 500 MG TABLET PO SCH ×2 (08:17→21:33)
[2020-11-18] MEDS: ASPIRIN EC 81 MG TABLET PO SCH (08:17)
[2020-11-18] MEDS: allopurinoL 300 MG TABLET PO SCH (08:17)
[2020-11-18] MEDS: DOCUSATE SODIUM 100 MG CAPSULE PO SCH ×2 (08:17→21:34)
[2020-11-18] MEDS: carvediloL 25 MG TABLET PO SCH ×2 (08:17→21:33)
[2020-11-18] MEDS: CHOLECALCIFEROL 1,000 UNIT TABLET PO SCH (08:17)
[2020-11-18] MEDS: APIXABAN 2.5 MG TABLET PO SCH ×2 (08:17→21:33)
[2020-11-18] MEDS: PANTOPRAZOLE 40 MG TABLET PO SCH (08:18)
[2020-11-18] MEDS: DEXTROSE 5% LACTATED RINGERS 1,000 ML IV SCH ×2 (09:24→17:33)
[2020-11-18] MEDS ORDERED: SODIUM PHOSPHATE ENEMA 133 ML BOTTLE RECTAL ONE (21:14)
[2020-11-19] MEDS: DEXTROSE 5% LACTATED RINGERS 1,000 ML IV SCH ×3 (01:02→17:15)
[2020-11-19] MEDS: INSULIN LISPRO 100 UNIT/ML SUBCUT SCH ×6 (01:03→20:45)
[2020-11-19 03:30] LABS: ABG Base Excess -3.2 MMOL/L (-2.5-2.5); ABG HCO3 24.7 MMOL/L (20-26); ABG Oxygen Saturation 96.6 % (95-100); ABG PCO2 56.9 MM HG (35-48); ABG PH 7.255 (7.35-7.45); ABG PO2 95.5 MM HG (80-95); ABG TCO2 26.4 MMOL/L (23-27)
[2020-11-19 04:01] LABS: Basophils % 0.5 % (0.0-0.8); Eosinophils # 0.1 10*3/uL (0.0-0.87); Eosinophils % 1.5 % (0.00-10.9); Hematocrit 38.1 VOL% (42.0-52.0); Hemoglobin 11.9 GM/DL (14.0-18.0); Immature Granulocytes % 7.1 %; Immature Granulocytes Absolute 0.39 #; Lymphocytes # 0.6 10*3/uL (1.4-4.0); Lymphocytes % 11.3 % (21.2-54.2); Mean Corpuscular HGB Conc 31.2 GM/DL (32-36); Mean Corpuscular Volume 90.5 FL (87-102); Mean Platelet Volume 10.9 FL (9.6-12.0); Monocytes % 17.2 % (1.7-12.7); NRBC # 0.03 10*3/uL; Neutrophils % 62.4 % (38.7-73.9); Platelet Count 140 T/CUMM (130-400); Red Blood Count 4.21 MC/CUMM (3.8-5.5); Red Cell Distribution Width 14.1 % (9.3-17.3); White Blood Count 5.5 T/CUMM (4-12)
[2020-11-19 04:02] LABS: Calcium 6.8 MG/DL (8.5-10.1); Potassium 3.6 MMOL/L (3.5-5.1)
[2020-11-19 04:28] LABS: Band Neutrophils 10 % (0-10); Hypochromasia 1+; Lymphocytes 8 % (20-55); Metamyelocytes 1 %; Microcytosis 1+; Nucleated Red Blood Cells 1 (0-5); Segmented Neutrophils 66 % (50-85); Total Cells Counted 100
[2020-11-19 04:29] LABS: Platelet Estimate Adequate; Polychromasia Slight
[2020-11-19] MEDS: allopurinoL 300 MG TABLET PO SCH (08:54)
[2020-11-19] MEDS: PANTOPRAZOLE 40 MG TABLET PO SCH (08:54)
[2020-11-19] MEDS: DOCUSATE SODIUM 100 MG CAPSULE PO SCH ×2 (08:54→20:45)
[2020-11-19] MEDS: AMIODARONE 200 MG TABLET PO SCH ×2 (08:54→20:45)
[2020-11-19] MEDS: CHOLECALCIFEROL 1,000 UNIT TABLET PO SCH (08:54)
[2020-11-19] MEDS: PIPERACILLIN/TAZOBACTAM 3,375 MG in SODIUM CHLORIDE 0.9% 100 ML IV SCH ×2 (08:54→20:45)
[2020-11-19] MEDS: carvediloL 25 MG TABLET PO SCH ×2 (08:54→20:45)
[2020-11-19] MEDS: ASPIRIN EC 81 MG TABLET PO SCH (08:54)
[2020-11-19] MEDS: ASCORBIC ACID 500 MG TABLET PO SCH ×2 (08:54→20:45)
[2020-11-19] MEDS: APIXABAN 2.5 MG TABLET PO SCH ×2 (08:55→20:45)
[2020-11-19] MEDS ORDERED: SODIUM BICARBONATE 50 MEQ/50 ML VIAL IV ONE (09:17)
[2020-11-20] MEDS: INSULIN LISPRO 100 UNIT/ML SUBCUT SCH ×6 (00:20→20:41)
[2020-11-20] MEDS: DEXTROSE 5% LACTATED RINGERS 1,000 ML IV SCH (01:15)
[2020-11-20 03:08] LABS: ABG Base Excess 2.2 MMOL/L (-2.5-2.5); ABG HCO3 26.3 MMOL/L (20-26); ABG Oxygen Saturation 96.7 % (95-100); ABG PCO2 68.9 MM HG (35-48); ABG PH 7.268 (7.35-7.45); ABG PO2 95.4 MM HG (80-95); ABG TCO2 28.2 MMOL/L (23-27)
[2020-11-20 06:46] LABS: Basophils # 0.1 10*3/uL (0.0-0.2); Basophils % 0.8 % (0.0-0.8); Eosinophils # 0.1 10*3/uL (0.0-0.87); Eosinophils % 0.8 % (0.00-10.9); Hematocrit 41.2 VOL% (42.0-52.0); Hemoglobin 12.7 GM/DL (14.0-18.0); Immature Granulocytes % 8.2 %; Immature Granulocytes Absolute 1.17 #; Lymphocytes # 0.9 10*3/uL (1.4-4.0); Lymphocytes % 6.1 % (21.2-54.2); Mean Corpuscular HGB Conc 30.8 GM/DL (32-36); Mean Corpuscular Volume 90.7 FL (87-102); Mean Platelet Volume 10.7 FL (9.6-12.0); Monocytes % 8.7 % (1.7-12.7); NRBC # 0.02 10*3/uL; Neutrophils % 75.4 % (38.7-73.9); Platelet Count 172 T/CUMM (130-400); Red Blood Count 4.54 MC/CUMM (3.8-5.5); Red Cell Distribution Width 14.4 % (9.3-17.3); White Blood Count 14.3 T/CUMM (4-12)
[2020-11-20 07:05] LABS: Calcium 7.7 MG/DL (8.5-10.1); Osmolality,Calculated 306.5 MOS/KG (273-304); Potassium 3.8 MMOL/L (3.5-5.1)
[2020-11-20] MEDS: CHOLECALCIFEROL 1,000 UNIT TABLET PO SCH (08:30)
[2020-11-20] MEDS: DOCUSATE SODIUM 100 MG CAPSULE PO SCH ×2 (08:30→21:59)
[2020-11-20] MEDS: AMIODARONE 200 MG TABLET PO SCH ×2 (08:30→21:59)
[2020-11-20] MEDS: APIXABAN 2.5 MG TABLET PO SCH ×2 (08:30→22:00)
[2020-11-20] MEDS: allopurinoL 300 MG TABLET PO SCH (08:30)
[2020-11-20] MEDS: PANTOPRAZOLE 40 MG TABLET PO SCH (08:30)
[2020-11-20] MEDS: ASPIRIN EC 81 MG TABLET PO SCH (08:30)
[2020-11-20] MEDS: ASCORBIC ACID 500 MG TABLET PO SCH ×2 (08:30→22:00)
[2020-11-20] MEDS: carvediloL 25 MG TABLET PO SCH ×2 (08:30→21:59)
[2020-11-20 08:33] LABS: Band Neutrophils 44 % (0-10); Lymphocytes 7 % (20-55); Platelet Estimate Normal; Segmented Neutrophils 38 % (50-85); Smudge Cells Few; Total Cells Counted 100
[2020-11-20 08:34] LABS: Anisocytosis 1+; Macrocytosis Slight
[2020-11-20] MEDS: PIPERACILLIN/TAZOBACTAM 3,375 MG in SODIUM CHLORIDE 0.9% 100 ML IV SCH ×2 (09:00→21:40)
[2020-11-20] MEDS ORDERED: SODIUM BICARBONATE 50 MEQ/50 ML VIAL IV ONE (09:02)
[2020-11-20] MEDS: SODIUM BICARB INJ 150 MEQ in DEXTROSE 5% 1,000 ML IV SCH ×2 (10:36→23:34)
[2020-11-20 11:50] LABS: ABG Base Excess 7.1 MMOL/L (-2.5-2.5); ABG HCO3 30.9 MMOL/L (20-26); ABG Oxygen Saturation 97.3 % (95-100); ABG PCO2 65.3 MM HG (35-48); ABG PH 7.342 (7.35-7.45); ABG TCO2 31.5 MMOL/L (23-27); Allen Test Positive; Pt O2 Delivery Device BIPAP
[2020-11-21] MEDS: INSULIN LISPRO 100 UNIT/ML SUBCUT SCH ×6 (00:33→22:23)
[2020-11-21 03:41] LABS: Basophils % 0.2 % (0.0-0.8); Eosinophils # 0.1 10*3/uL (0.0-0.87); Eosinophils % 0.7 % (0.00-10.9); Hematocrit 35.8 VOL% (42.0-52.0); Hemoglobin 10.8 GM/DL (14.0-18.0); Immature Granulocytes % 5.7 %; Immature Granulocytes Absolute 0.94 #; Lymphocytes # 0.8 10*3/uL (1.4-4.0); Lymphocytes % 4.8 % (21.2-54.2); Mean Corpuscular HGB Conc 30.2 GM/DL (32-36); Mean Corpuscular Volume 92.5 FL (87-102); Mean Platelet Volume 10.6 FL (9.6-12.0); Monocytes % 6.6 % (1.7-12.7); Platelet Count 153 T/CUMM (130-400); Red Blood Count 3.87 MC/CUMM (3.8-5.5); Red Cell Distribution Width 14.5 % (9.3-17.3); White Blood Count 16.4 T/CUMM (4-12)
[2020-11-21 03:56] LABS: Calcium 7.4 MG/DL (8.5-10.1); Osmolality,Calculated 307.4 MOS/KG (273-304); Potassium 3.1 MMOL/L (3.5-5.1)
[2020-11-21 04:08] LABS: Band Neutrophils 5 % (0-10); Lymphocytes 6 % (20-55); Metamyelocytes 1 %; Segmented Neutrophils 84 % (50-85); Total Cells Counted 100
[2020-11-21 04:09] LABS: Howell-Jolly Bodies Few; Hypochromasia 1+; Platelet Estimate Normal
[2020-11-21 05:40] LABS: ABG Base Excess 10.4 MMOL/L (-2.5-2.5); ABG HCO3 36.4 MMOL/L (20-26); ABG Oxygen Saturation 97.2 % (95-100); ABG PCO2 55.6 MM HG (35-48); ABG PH 7.434 (7.35-7.45); ABG PO2 94.2 MM HG (80-95); ABG TCO2 38.1 MMOL/L (23-27)
[2020-11-21] MEDS: PIPERACILLIN/TAZOBACTAM 3,375 MG in SODIUM CHLORIDE 0.9% 100 ML IV SCH ×2 (08:50→21:18)
[2020-11-21] MEDS: ASPIRIN EC 81 MG TABLET PO SCH (09:31)
[2020-11-21] MEDS: APIXABAN 2.5 MG TABLET PO SCH ×2 (09:32→21:00)
[2020-11-21] MEDS: PANTOPRAZOLE 40 MG TABLET PO SCH (09:32)
[2020-11-21] MEDS: allopurinoL 300 MG TABLET PO SCH (09:32)
[2020-11-21] MEDS: carvediloL 25 MG TABLET PO SCH ×2 (09:32→21:00)
[2020-11-21] MEDS: DOCUSATE SODIUM 100 MG CAPSULE PO SCH ×2 (09:32→21:00)
[2020-11-21] MEDS: AMIODARONE 200 MG TABLET PO SCH ×2 (09:32→21:00)
[2020-11-21] MEDS: CHOLECALCIFEROL 1,000 UNIT TABLET PO SCH (09:32)
[2020-11-21] MEDS: ASCORBIC ACID 500 MG TABLET PO SCH ×2 (09:32→21:01)
[2020-11-21] MEDS: SODIUM BICARB INJ 150 MEQ in DEXTROSE 5% 1,000 ML IV SCH (09:45)
[2020-11-21] MEDS: POTASSIUM CHLORIDE 20 MEQ TABLET PO PRN ×4 (09:49→16:12)
[2020-11-21] MEDS ORDERED: DEXTROSE 5% LACTATED RINGERS 1,000 ML IV SCH (10:00)
[2020-11-21] MEDS: DEXTROSE 5% NACL 0.45% 1,000 ML IV SCH (11:00)
[2020-11-21] MEDS: HYDROmorphone 2 MG/1 ML VIAL IV PRN (22:25)
[2020-11-22] MEDS: INSULIN LISPRO 100 UNIT/ML SUBCUT SCH ×6 (00:30→19:52)
[2020-11-22] MEDS: DEXTROSE 5% NACL 0.45% 1,000 ML IV SCH ×2 (00:41→11:35)
[2020-11-22 04:39] LABS: ABG Base Excess 7.4 MMOL/L (-2.5-2.5); ABG HCO3 30.7 MMOL/L (20-26); ABG Oxygen Saturation 80.9 % (95-100); ABG PH 7.277 (7.35-7.45); ABG PO2 53.4 MM HG (80-95)
[2020-11-22 05:00] LABS: ABG PCO2 81.6 MM HG (35-48)
[2020-11-22 06:03] LABS: Calcium 8.1 MG/DL (8.5-10.1); Osmolality,Calculated 309.3 MOS/KG (273-304); Potassium 3.3 MMOL/L (3.5-5.1)
[2020-11-22 06:25] LABS: Basophils % 0.1 % (0.0-0.8); Eosinophils # 0.1 10*3/uL (0.0-0.87); Eosinophils % 0.5 % (0.00-10.9); Hematocrit 43.5 VOL% (42.0-52.0); Immature Granulocytes Absolute 2.17 #; Lymphocytes % 3.5 % (21.2-54.2); Mean Corpuscular HGB Conc 30.3 GM/DL (32-36); Mean Corpuscular Volume 93.8 FL (87-102); Mean Platelet Volume 10.7 FL (9.6-12.0); Monocytes % 4.6 % (1.7-12.7); Neutrophils % 83.3 % (38.7-73.9); Red Blood Count 4.64 MC/CUMM (3.8-5.5); Red Cell Distribution Width 14.6 % (9.3-17.3)
[2020-11-22 06:28] LABS: White Blood Count 27.2 T/CUMM (4-12)
[2020-11-22 06:29] LABS: Hemoglobin 13.2 GM/DL (14.0-18.0); Platelet Count 244 T/CUMM (130-400)
[2020-11-22 06:38] LABS: Band Neutrophils 1 % (0-10); Hypochromasia 1+; Lymphocytes 5 % (20-55); Microcytosis 1+; Platelet Estimate Adequate; Segmented Neutrophils 90 % (50-85); Total Cells Counted 100
[2020-11-22] MEDS ORDERED: ETOMIDATE 20 MG/10 ML VIAL IV ONE ×3 (06:42→06:55)
[2020-11-22] MEDS ORDERED: SUCCINYLCHOLINE 200 MG/10 ML VIAL ONE (06:42)
[2020-11-22] MEDS ORDERED: SUCCINYLCHOLINE 200 MG/10 ML VIAL IV ONE (06:54)
[2020-11-22] MEDS: MIDAZOLAM 100 MG in SODIUM CHLORIDE 0.9% 80 ML IV PRN (07:30)
[2020-11-22] MEDS ORDERED: NOREPINEPHRINE 8 MG in SODIUM CHLORIDE 0.9% 242 ML IV PRN (08:05)
[2020-11-22] MEDS ORDERED: NOREPINEPHRINE 4 MG/4 ML VIAL IV ONE (08:07)
[2020-11-22 08:15] LABS: ABG Base Excess 8.2 MMOL/L (-2.5-2.5); ABG HCO3 35.4 MMOL/L (20-26); ABG Oxygen Saturation 98.8 % (95-100); ABG PH 7.368 (7.35-7.45); ABG PO2 193.9 MM HG (80-95); ABG TCO2 37.4 MMOL/L (23-27)
[2020-11-22] MEDS: AMIODARONE 200 MG TABLET PO SCH ×2 (08:52→21:14)
[2020-11-22] MEDS: carvediloL 25 MG TABLET PO SCH ×2 (08:52→21:14)
[2020-11-22] MEDS: DOCUSATE SODIUM 100 MG CAPSULE PO SCH ×2 (09:08→21:14)
[2020-11-22] MEDS: APIXABAN 2.5 MG TABLET PO SCH ×2 (09:17→21:14)
[2020-11-22] MEDS: ASCORBIC ACID 500 MG TABLET PO SCH ×2 (09:17→21:15)
[2020-11-22] MEDS ORDERED: ASPIRIN CHEW 81 MG TABLET PO ONE (09:17)
[2020-11-22] MEDS: allopurinoL 300 MG TABLET PO SCH (09:18)
[2020-11-22] MEDS: CHOLECALCIFEROL 1,000 UNIT TABLET PO SCH (09:18)
[2020-11-22] MEDS: PIPERACILLIN/TAZOBACTAM 3,375 MG in SODIUM CHLORIDE 0.9% 100 ML IV SCH ×2 (09:18→21:21)
[2020-11-22] MEDS: PANTOPRAZOLE 40 MG VIAL IV SCH (09:25)
[2020-11-22] MEDS: ASPIRIN EC 81 MG TABLET PO SCH (09:43)
[2020-11-22] MEDS: ASPIRIN CHEW 81 MG TABLET PO SCH (10:50)
[2020-11-22] MEDS: ACETAMINOPHEN 325 MG TABLET PO PRN ×2 (17:55→23:48)
[2020-11-23] MEDS: INSULIN LISPRO 100 UNIT/ML SUBCUT SCH ×6 (01:07→21:01)
[2020-11-23 04:15] LABS: ABG Base Excess 9.2 MMOL/L (-2.5-2.5); ABG PCO2 44.4 MM HG (35-48); ABG PH 7.489 (7.35-7.45); ABG PO2 84.3 MM HG (80-95); ABG TCO2 30.1 MMOL/L (23-27)
[2020-11-23 05:30] LABS: Basophils # 0.1 10*3/uL (0.0-0.2); Basophils % 0.3 % (0.0-0.8); Eosinophils # 0.2 10*3/uL (0.0-0.87); Eosinophils % 0.7 % (0.00-10.9); Hematocrit 34.7 VOL% (42.0-52.0); Hemoglobin 11.1 GM/DL (14.0-18.0); Immature Granulocytes % 5.7 %; Immature Granulocytes Absolute 1.33 #; Lymphocytes # 0.9 10*3/uL (1.4-4.0); Lymphocytes % 3.9 % (21.2-54.2); Mean Corpuscular Volume 91.1 FL (87-102); Mean Platelet Volume 10.9 FL (9.6-12.0); Monocytes % 3.2 % (1.7-12.7); Neutrophils % 86.2 % (38.7-73.9); Platelet Count 198 T/CUMM (130-400); Red Blood Count 3.81 MC/CUMM (3.8-5.5); Red Cell Distribution Width 14.5 % (9.3-17.3); White Blood Count 23.3 T/CUMM (4-12)
[2020-11-23] MEDS ORDERED: ACETAMINOPHEN 500 MG TABLET PO ONE (05:49)
[2020-11-23 06:04] LABS: Band Neutrophils 3 % (0-10); Hypochromasia 1+; Lymphocytes 2 % (20-55); Microcytosis 1+; Polychromasia Slight; Segmented Neutrophils 92 % (50-85); Total Cells Counted 100
[2020-11-23 06:05] LABS: Ovalocytes Slight
[2020-11-23] MEDS: HYDROmorphone 2 MG/1 ML VIAL IV PRN ×2 (06:07→20:55)
[2020-11-23 06:08] LABS: Calcium 7.8 MG/DL (8.5-10.1); Potassium 2.8 MMOL/L (3.5-5.1)
[2020-11-23] MEDS: APIXABAN 2.5 MG TABLET PO SCH ×2 (08:18→21:01)
[2020-11-23] MEDS: MIDAZOLAM 100 MG in SODIUM CHLORIDE 0.9% 80 ML IV PRN (08:18)
[2020-11-23] MEDS: ASPIRIN CHEW 81 MG TABLET PO SCH (08:18)
[2020-11-23] MEDS: allopurinoL 300 MG TABLET PO SCH (08:18)
[2020-11-23] MEDS: CHOLECALCIFEROL 1,000 UNIT TABLET PO SCH (08:19)
[2020-11-23] MEDS: DOCUSATE SODIUM 100 MG CAPSULE PO SCH ×2 (08:19→21:00)
[2020-11-23] MEDS: carvediloL 25 MG TABLET PO SCH ×3 (08:19→21:01)
[2020-11-23] MEDS: AMIODARONE 200 MG TABLET PO SCH ×2 (08:19→21:01)
[2020-11-23] MEDS: ASCORBIC ACID 500 MG TABLET PO SCH ×2 (08:22→21:01)
[2020-11-23] MEDS: PIPERACILLIN/TAZOBACTAM 3,375 MG in SODIUM CHLORIDE 0.9% 100 ML IV SCH ×2 (08:24→21:00)
[2020-11-23] MEDS: PANTOPRAZOLE 40 MG VIAL IV SCH (08:25)
[2020-11-23] MEDS ORDERED: DEXTROSE 50% 25 GM/50 ML VIAL IV PRN (08:46)
[2020-11-23] MEDS ORDERED: ASPIRIN CHEW 81 MG TABLET PO SCH (09:00)
[2020-11-23] MEDS: METOCLOPRAMIDE 10 MG/2 ML VIAL IV SCH ×2 (09:14→16:54)
[2020-11-23] MEDS: POTASSIUM CHLORIDE 20 MEQ PACK PER TUBE SCH ×4 (09:14→21:01)
[2020-11-23] MEDS: ACETAMINOPHEN 325 MG TABLET PO PRN ×2 (12:07→18:25)
[2020-11-23] MEDS ORDERED: TISSUE ADHESIVE 1 EACH APPLICATOR TOP ONE ×2 (13:07→13:11)
[2020-11-23] MEDS ORDERED: HEPARIN 5,000 UNIT/1 ML VIAL ONE (13:07)
[2020-11-23] MEDS ORDERED: LIDOCAINE 1% 20 ML VIAL ONE (13:08)
[2020-11-23] MEDS: hydrALAZINE 20 MG/1 ML VIAL IV PRN (23:29)
[2020-11-24] MEDS ORDERED: hydrALAZINE 20 MG/1 ML VIAL IV ONE (00:33)
[2020-11-24] MEDS: MIDAZOLAM 100 MG in SODIUM CHLORIDE 0.9% 80 ML IV PRN (00:40)
[2020-11-24] MEDS: METOCLOPRAMIDE 10 MG/2 ML VIAL IV SCH ×3 (01:10→17:39)
[2020-11-24] MEDS ORDERED: ACETAMINOPHEN 500 MG TABLET PO ONE (01:19)
[2020-11-24 03:16] LABS: ABG Base Excess 7.9 MMOL/L (-2.5-2.5); ABG HCO3 32.9 MMOL/L (20-26); ABG Oxygen Saturation 83.8 % (95-100); ABG PCO2 47.7 MM HG (35-48); ABG PH 7.456 (7.35-7.45); ABG PO2 46.3 MM HG (80-95); ABG TCO2 34.3 MMOL/L (23-27)
[2020-11-24 04:13] LABS: ABG Base Excess 7.6 MMOL/L (-2.5-2.5); ABG HCO3 31.4 MMOL/L (20-26); ABG Oxygen Saturation 95.9 % (95-100); ABG PCO2 44.5 MM HG (35-48); ABG PH 7.469 (7.35-7.45); ABG PO2 78.2 MM HG (80-95); ABG TCO2 28.8 MMOL/L (23-27)
[2020-11-24 06:38] LABS: Basophils # 0.1 10*3/uL (0.0-0.2); Basophils % 0.4 % (0.0-0.8); Eosinophils # 0.4 10*3/uL (0.0-0.87); Eosinophils % 1.4 % (0.00-10.9); Hematocrit 40.7 VOL% (42.0-52.0); Hemoglobin 12.5 GM/DL (14.0-18.0); Immature Granulocytes % 4.5 %; Immature Granulocytes Absolute 1.31 #; Lymphocytes # 1.2 10*3/uL (1.4-4.0); Lymphocytes % 4.2 % (21.2-54.2); Mean Corpuscular HGB Conc 30.7 GM/DL (32-36); Mean Corpuscular Volume 94.9 FL (87-102); Mean Platelet Volume 11.7 FL (9.6-12.0); Monocytes % 4.6 % (1.7-12.7); Neutrophils % 84.9 % (38.7-73.9); Platelet Count 145 T/CUMM (130-400); Red Blood Count 4.29 MC/CUMM (3.8-5.5); Red Cell Distribution Width 14.8 % (9.3-17.3); White Blood Count 28.9 T/CUMM (4-12)
[2020-11-24 06:58] LABS: Calcium 8.2 MG/DL (8.5-10.1); Osmolality,Calculated 316.3 MOS/KG (273-304)
[2020-11-24 07:05] LABS: Eosinophils 1 % (0-10); Hypochromasia 1+; Lymphocytes 4 % (20-55); Microcytosis 1+; Platelet Estimate Adequate; Segmented Neutrophils 92 % (50-85); Total Cells Counted 100
[2020-11-24] MEDS: INSULIN LISPRO 100 UNIT/ML SUBCUT SCH ×3 (07:58→17:03)
[2020-11-24] MEDS: ASPIRIN CHEW 81 MG TABLET PO SCH (08:33)
[2020-11-24] MEDS: CHOLECALCIFEROL 1,000 UNIT TABLET PO SCH (08:33)
[2020-11-24] MEDS: AMIODARONE 200 MG TABLET PO SCH ×2 (08:34→20:54)
[2020-11-24] MEDS: allopurinoL 300 MG TABLET PO SCH (08:34)
[2020-11-24] MEDS: APIXABAN 2.5 MG TABLET PO SCH ×2 (08:34→20:54)
[2020-11-24] MEDS: DOCUSATE SODIUM 100 MG CAPSULE PO SCH ×2 (08:34→20:54)
[2020-11-24] MEDS: ASCORBIC ACID 500 MG TABLET PO SCH ×2 (08:34→20:55)
[2020-11-24] MEDS: carvediloL 25 MG TABLET PO SCH ×2 (08:34→20:54)
[2020-11-24] MEDS: PIPERACILLIN/TAZOBACTAM 3,375 MG in SODIUM CHLORIDE 0.9% 100 ML IV SCH ×2 (08:35→20:54)
[2020-11-24] MEDS: PANTOPRAZOLE 40 MG VIAL IV SCH (08:35)
[2020-11-24] MEDS: LEVOFLOXACIN INJ 750 MG/150 ML PREMIX IV SCH (13:18)
[2020-11-24] MEDS: HYDROmorphone 2 MG/1 ML VIAL IV PRN (15:58)
[2020-11-24] MEDS: ZINC/COPPER/MANGANESE/SELENIUM 1 ML, MULTIVITAMIN INJ 10 ML, POTASSIUM CHLORIDE INJ 40 ... IV SCH (16:00)
[2020-11-24] MEDS ORDERED: DEXTROSE 10% 1,000 ML IV PRN (17:00)
[2020-11-25] MEDS: INSULIN LISPRO 100 UNIT/ML SUBCUT SCH ×4 (00:34→18:19)
[2020-11-25] MEDS: METOCLOPRAMIDE 10 MG/2 ML VIAL IV SCH (00:36)
[2020-11-25 04:23] LABS: ABG Base Excess 6.3 MMOL/L (-2.5-2.5); ABG HCO3 32.4 MMOL/L (20-26); ABG Oxygen Saturation 96.9 % (95-100); ABG PCO2 54.2 MM HG (35-48); ABG PH 7.395 (7.35-7.45); ABG PO2 93.9 MM HG (80-95); ABG TCO2 34.1 MMOL/L (23-27); Allen Test Positive; Pt O2 Delivery Device Ventilator
[2020-11-25 05:53] LABS: Basophils # 0.1 10*3/uL (0.0-0.2); Basophils % 0.3 % (0.0-0.8); Eosinophils # 0.3 10*3/uL (0.0-0.87); Hematocrit 38.3 VOL% (42.0-52.0); Hemoglobin 11.8 GM/DL (14.0-18.0); Immature Granulocytes % 5.2 %; Immature Granulocytes Absolute 1.59 #; Lymphocytes # 0.7 10*3/uL (1.4-4.0); Lymphocytes % 2.2 % (21.2-54.2); Mean Corpuscular HGB Conc 30.8 GM/DL (32-36); Mean Corpuscular Volume 94.1 FL (87-102); Mean Platelet Volume 11.2 FL (9.6-12.0); Monocytes % 2.5 % (1.7-12.7); Neutrophils % 88.8 % (38.7-73.9); Platelet Count 228 T/CUMM (130-400); Red Blood Count 4.07 MC/CUMM (3.8-5.5); Red Cell Distribution Width 14.9 % (9.3-17.3); White Blood Count 30.3 T/CUMM (4-12)
[2020-11-25 06:14] LABS: Calcium 8.6 MG/DL (8.5-10.1); Osmolality,Calculated 334.7 MOS/KG (273-304)
[2020-11-25 06:17] LABS: Band Neutrophils 1 % (0-10); Eosinophils 1 % (0-10); Hypochromasia Slight; Lymphocytes 1 % (20-55); Microcytosis 1+; Platelet Estimate Adequate; Segmented Neutrophils 91 % (50-85); Total Cells Counted 100
[2020-11-25] MEDS: PIPERACILLIN/TAZOBACTAM 3,375 MG in SODIUM CHLORIDE 0.9% 100 ML IV SCH ×2 (09:32→20:58)
[2020-11-25] MEDS: POTASSIUM CHLORIDE RIDER 20 MEQ/100 ML PREMIX IV SCH ×2 (10:44→10:45)
[2020-11-25] MEDS: DOCUSATE SODIUM 100 MG CAPSULE PO SCH ×2 (10:51→21:03)
[2020-11-25] MEDS: APIXABAN 2.5 MG TABLET PO SCH (10:51)
[2020-11-25] MEDS: AMIODARONE 200 MG TABLET PO SCH ×2 (10:51→21:03)
[2020-11-25] MEDS: ASCORBIC ACID 500 MG TABLET PO SCH ×2 (10:51→21:03)
[2020-11-25] MEDS: allopurinoL 300 MG TABLET PO SCH (10:51)
[2020-11-25] MEDS: carvediloL 25 MG TABLET PO SCH ×2 (10:51→21:03)
[2020-11-25] MEDS: ASPIRIN CHEW 81 MG TABLET PO SCH (10:51)
[2020-11-25] MEDS: POTASSIUM CHLORIDE RIDER 10 MEQ/100 ML PREMIX IV SCH ×6 (10:53→16:54)
[2020-11-25] MEDS: CHOLECALCIFEROL 1,000 UNIT TABLET PO SCH (10:54)
[2020-11-25] MEDS: PANTOPRAZOLE 40 MG VIAL IV SCH (10:54)
[2020-11-25] MEDS: ZINC/COPPER/MANGANESE/SELENIUM 1 ML, MULTIVITAMIN INJ 10 ML, POTASSIUM CHLORIDE INJ 40 ... IV SCH (16:58)
[2020-11-26] MEDS: INSULIN LISPRO 100 UNIT/ML SUBCUT SCH ×4 (00:16→17:44)
[2020-11-26 04:19] LABS: ABG Base Excess 5.9 MMOL/L (-2.5-2.5); ABG HCO3 29.7 MMOL/L (20-26); ABG Oxygen Saturation 95.3 % (95-100); ABG PCO2 48.3 MM HG (35-48); ABG PO2 75.7 MM HG (80-95); ABG TCO2 28.3 MMOL/L (23-27); Allen Test Positive; Pt O2 Delivery Device Ventilator
[2020-11-26 05:32] LABS: Basophils % 0.2 % (0.0-0.8); Eosinophils # 0.3 10*3/uL (0.0-0.87); Eosinophils % 1.4 % (0.00-10.9); Hemoglobin 10.2 GM/DL (14.0-18.0); Immature Granulocytes % 2.1 %; Immature Granulocytes Absolute 0.53 #; Lymphocytes # 0.9 10*3/uL (1.4-4.0); Lymphocytes % 3.6 % (21.2-54.2); Mean Corpuscular HGB Conc 30.9 GM/DL (32-36); Mean Corpuscular Volume 92.7 FL (87-102); Mean Platelet Volume 12.8 FL (9.6-12.0); Monocytes % 3.2 % (1.7-12.7); Neutrophils % 89.5 % (38.7-73.9); Platelet Count 306 T/CUMM (130-400); Red Blood Count 3.56 MC/CUMM (3.8-5.5); Red Cell Distribution Width 15.4 % (9.3-17.3); White Blood Count 24.7 T/CUMM (4-12)
[2020-11-26 05:52] LABS: Eosinophils 2 % (0-10); Lymphocytes 4 % (20-55); Platelet Estimate Adequate; Segmented Neutrophils 91 % (50-85); Total Cells Counted 100
[2020-11-26 05:53] LABS: Hypochromasia 1+; Microcytosis 1+
[2020-11-26 07:12] LABS: Calcium 8.7 MG/DL (8.5-10.1); Osmolality,Calculated 339.6 MOS/KG (273-304); Potassium 3.4 MMOL/L (3.5-5.1)
[2020-11-26] MEDS: POTASSIUM CHLORIDE RIDER 10 MEQ/100 ML PREMIX IV SCH ×4 (08:38→11:52)
[2020-11-26] MEDS: PIPERACILLIN/TAZOBACTAM 3,375 MG in SODIUM CHLORIDE 0.9% 100 ML IV SCH ×2 (08:38→21:29)
[2020-11-26] MEDS: ASCORBIC ACID 500 MG TABLET PO SCH ×2 (10:26→21:30)
[2020-11-26] MEDS: allopurinoL 300 MG TABLET PO SCH (10:26)
[2020-11-26] MEDS: CHOLECALCIFEROL 1,000 UNIT TABLET PO SCH (10:26)
[2020-11-26] MEDS: AMIODARONE 200 MG TABLET PO SCH ×2 (10:26→21:29)
[2020-11-26] MEDS: carvediloL 25 MG TABLET PO SCH ×2 (10:26→21:30)
[2020-11-26] MEDS: DOCUSATE SODIUM 100 MG CAPSULE PO SCH ×2 (10:26→21:29)
[2020-11-26] MEDS: LEVOFLOXACIN INJ 750 MG/150 ML PREMIX IV SCH (10:27)
[2020-11-26] MEDS: PANTOPRAZOLE 40 MG VIAL IV SCH (10:27)
[2020-11-26] MEDS: ALBUTEROL/IPRATROPIUM 3 ML NEB RESP TX SCH ×2 (12:33→18:14)
[2020-11-26] MEDS: ZINC/COPPER/MANGANESE/SELENIUM 1 ML, MULTIVITAMIN INJ 10 ML, POTASSIUM CHLORIDE INJ 40 ... IV SCH (17:18)
[2020-11-26] MEDS: ACETAMINOPHEN 325 MG TABLET PO PRN (17:36)
[2020-11-27] MEDS: ALBUTEROL/IPRATROPIUM 3 ML NEB RESP TX SCH ×4 (00:25→20:08)
[2020-11-27] MEDS: ACETAMINOPHEN 325 MG TABLET PO PRN ×3 (00:36→18:00)
[2020-11-27] MEDS: INSULIN LISPRO 100 UNIT/ML SUBCUT SCH ×4 (00:36→17:17)
[2020-11-27 03:16] LABS: ABG Base Excess 4.8 MMOL/L (-2.5-2.5); ABG HCO3 30.2 MMOL/L (20-26); ABG Oxygen Saturation 96.9 % (95-100); ABG PCO2 49.4 MM HG (35-48); ABG PH 7.404 (7.35-7.45); ABG PO2 93.6 MM HG (80-95); ABG TCO2 31.7 MMOL/L (23-27)
[2020-11-27 04:56] LABS: Basophils % 0.2 % (0.0-0.8); Eosinophils # 0.3 10*3/uL (0.0-0.87); Eosinophils % 1.7 % (0.00-10.9); Hematocrit 31.7 VOL% (42.0-52.0); Hemoglobin 9.3 GM/DL (14.0-18.0); Immature Granulocytes % 1.5 %; Immature Granulocytes Absolute 0.27 #; Lymphocytes # 1.2 10*3/uL (1.4-4.0); Lymphocytes % 6.8 % (21.2-54.2); Mean Corpuscular HGB Conc 29.3 GM/DL (32-36); Mean Corpuscular Volume 94.9 FL (87-102); Mean Platelet Volume 11.4 FL (9.6-12.0); Monocytes % 4.7 % (1.7-12.7); Neutrophils % 85.1 % (38.7-73.9); Platelet Count 217 T/CUMM (130-400); Red Blood Count 3.34 MC/CUMM (3.8-5.5); Red Cell Distribution Width 14.8 % (9.3-17.3); White Blood Count 17.6 T/CUMM (4-12)
[2020-11-27 05:16] LABS: Calcium 8.4 MG/DL (8.5-10.1); Osmolality,Calculated 347.6 MOS/KG (273-304); Potassium 3.7 MMOL/L (3.5-5.1)
[2020-11-27] MEDS: metroNIDAZOLE INJ 500 MG/100 ML PREMIX IV SCH ×2 (08:14→21:25)
[2020-11-27] MEDS: ASCORBIC ACID 500 MG TABLET PO SCH ×2 (08:15→21:25)
[2020-11-27] MEDS: DOCUSATE SODIUM 100 MG CAPSULE PO SCH ×2 (08:15→21:25)
[2020-11-27] MEDS: carvediloL 25 MG TABLET PO SCH ×2 (08:15→21:25)
[2020-11-27] MEDS: allopurinoL 300 MG TABLET PO SCH (08:15)
[2020-11-27] MEDS: AMIODARONE 200 MG TABLET PO SCH ×2 (08:15→21:25)
[2020-11-27] MEDS: PANTOPRAZOLE 40 MG VIAL IV SCH (08:16)
[2020-11-27] MEDS: CHOLECALCIFEROL 1,000 UNIT TABLET PO SCH (08:16)
[2020-11-27] MEDS: METOCLOPRAMIDE 10 MG/2 ML VIAL IV SCH ×3 (09:58→21:26)
[2020-11-27] MEDS: POTASSIUM CHLORIDE 20 MEQ TABLET PO PRN (12:27)
[2020-11-27] MEDS: ZINC/COPPER/MANGANESE/SELENIUM 1 ML, MULTIVITAMIN INJ 10 ML, POTASSIUM CHLORIDE INJ 40 ... IV SCH (16:44)
[2020-11-28] MEDS: ALBUTEROL/IPRATROPIUM 3 ML NEB RESP TX SCH ×4 (00:21→18:28)
[2020-11-28] MEDS: INSULIN LISPRO 100 UNIT/ML SUBCUT SCH ×5 (00:32→23:37)
[2020-11-28] MEDS: METOCLOPRAMIDE 10 MG/2 ML VIAL IV SCH (03:47)
[2020-11-28 04:08] LABS: ABG HCO3 26.5 MMOL/L (20-26); ABG Oxygen Saturation 97.7 % (95-100); ABG PCO2 46.9 MM HG (35-48); ABG PO2 124.5 MM HG (80-95); ABG TCO2 27.9 MMOL/L (23-27)
[2020-11-28 04:41] LABS: Basophils % 0.2 % (0.0-0.8); Eosinophils # 0.3 10*3/uL (0.0-0.87); Eosinophils % 1.9 % (0.00-10.9); Hemoglobin 9.6 GM/DL (14.0-18.0); Immature Granulocytes % 2.4 %; Immature Granulocytes Absolute 0.39 #; Lymphocytes # 1.1 10*3/uL (1.4-4.0); Lymphocytes % 6.7 % (21.2-54.2); Mean Corpuscular Volume 94.4 FL (87-102); Mean Platelet Volume 11.2 FL (9.6-12.0); Neutrophils % 82.8 % (38.7-73.9); Platelet Count 245 T/CUMM (130-400); Red Blood Count 3.39 MC/CUMM (3.8-5.5); Red Cell Distribution Width 14.7 % (9.3-17.3); White Blood Count 16.5 T/CUMM (4-12)
[2020-11-28 05:15] LABS: Calcium 8.7 MG/DL (8.5-10.1); Osmolality,Calculated 357.3 MOS/KG (273-304)
[2020-11-28 05:40] LABS: Hypochromasia 1+; Lymphocytes 7 % (20-55); Microcytosis 1+; Segmented Neutrophils 90 % (50-85); Total Cells Counted 100
[2020-11-28] MEDS: CHOLECALCIFEROL 1,000 UNIT TABLET PO SCH (08:17)
[2020-11-28] MEDS: ASCORBIC ACID 500 MG TABLET PO SCH ×2 (08:18→20:30)
[2020-11-28] MEDS: DOCUSATE SODIUM 100 MG CAPSULE PO SCH (08:18)
[2020-11-28] MEDS: metroNIDAZOLE INJ 500 MG/100 ML PREMIX IV SCH ×2 (08:18→20:30)
[2020-11-28] MEDS: carvediloL 25 MG TABLET PO SCH ×2 (08:18→20:30)
[2020-11-28] MEDS: allopurinoL 300 MG TABLET PO SCH (08:18)
[2020-11-28] MEDS: AMIODARONE 200 MG TABLET PO SCH ×2 (08:19→20:30)
[2020-11-28] MEDS: PANTOPRAZOLE 40 MG VIAL IV SCH (08:19)
[2020-11-28] MEDS: LEVOFLOXACIN INJ 750 MG/150 ML PREMIX IV SCH (10:15)
[2020-11-28] MEDS: cefTRIAXone 1,000 MG in SODIUM CHLORIDE 0.9% 100 ML IV SCH (10:26)
[2020-11-28] MEDS: DOCUSATE SODIUM 100 MG/10 ML UDCUP PO SCH (20:30)
[2020-11-29] MEDS: ALBUTEROL/IPRATROPIUM 3 ML NEB RESP TX SCH ×4 (01:02→19:08)
[2020-11-29 04:09] LABS: ABG Base Excess 0.9 MMOL/L (-2.5-2.5); ABG HCO3 25.3 MMOL/L (20-26); ABG Oxygen Saturation 97.6 % (95-100); ABG PCO2 42.4 MM HG (35-48); ABG PH 7.395 (7.35-7.45); ABG PO2 97.3 MM HG (80-95); ABG TCO2 23.5 MMOL/L (23-27)
[2020-11-29 05:12] LABS: Basophils # 0.1 10*3/uL (0.0-0.2); Basophils % 0.3 % (0.0-0.8); Eosinophils # 0.3 10*3/uL (0.0-0.87); Eosinophils % 1.9 % (0.00-10.9); Hematocrit 32.4 VOL% (42.0-52.0); Hemoglobin 9.7 GM/DL (14.0-18.0); Immature Granulocytes % 1.9 %; Immature Granulocytes Absolute 0.27 #; Lymphocytes # 1.1 10*3/uL (1.4-4.0); Lymphocytes % 7.7 % (21.2-54.2); Mean Corpuscular HGB Conc 29.9 GM/DL (32-36); Mean Corpuscular Volume 94.5 FL (87-102); Mean Platelet Volume 11.4 FL (9.6-12.0); Monocytes % 4.8 % (1.7-12.7); Neutrophils % 83.4 % (38.7-73.9); Platelet Count 274 T/CUMM (130-400); Red Blood Count 3.43 MC/CUMM (3.8-5.5); Red Cell Distribution Width 14.7 % (9.3-17.3); White Blood Count 14.5 T/CUMM (4-12)
[2020-11-29 05:44] LABS: Calcium 8.6 MG/DL (8.5-10.1); Osmolality,Calculated 354.9 MOS/KG (273-304); Potassium 4.1 MMOL/L (3.5-5.1)
[2020-11-29] MEDS: INSULIN LISPRO 100 UNIT/ML SUBCUT SCH ×4 (06:02→23:54)
[2020-11-29] MEDS: CHOLECALCIFEROL 1,000 UNIT TABLET PO SCH (09:21)
[2020-11-29] MEDS: DOCUSATE SODIUM 100 MG/10 ML UDCUP PO SCH ×2 (09:21→20:46)
[2020-11-29] MEDS: AMIODARONE 200 MG TABLET PO SCH ×2 (09:21→20:46)
[2020-11-29] MEDS: allopurinoL 300 MG TABLET PO SCH (09:21)
[2020-11-29] MEDS: ASCORBIC ACID 500 MG TABLET PO SCH ×2 (09:21→20:47)
[2020-11-29] MEDS: carvediloL 25 MG TABLET PO SCH ×2 (09:22→20:47)
[2020-11-29] MEDS: metroNIDAZOLE INJ 500 MG/100 ML PREMIX IV SCH (09:22)
[2020-11-29] MEDS: PANTOPRAZOLE 40 MG VIAL IV SCH (09:22)
[2020-11-29] MEDS: cefTRIAXone 1,000 MG in SODIUM CHLORIDE 0.9% 100 ML IV SCH (10:23)
[2020-11-29] MEDS ORDERED: SODIUM CHLORIDE 0.45% 1,000 ML IV SCH (14:00)
[2020-11-30] MEDS: ALBUTEROL/IPRATROPIUM 3 ML NEB RESP TX SCH ×4 (00:09→19:59)
[2020-11-30 04:43] LABS: ABG Base Excess -0.5 MMOL/L (-2.5-2.5); ABG Oxygen Saturation 98.7 % (95-100); ABG PCO2 44.2 MM HG (35-48); ABG PH 7.362 (7.35-7.45); ABG TCO2 22.5 MMOL/L (23-27)
[2020-11-30 05:52] LABS: Basophils % 0.4 % (0.0-0.8); Eosinophils # 0.3 10*3/uL (0.0-0.87); Eosinophils % 2.6 % (0.00-10.9); Hematocrit 34.3 VOL% (42.0-52.0); Hemoglobin 10.2 GM/DL (14.0-18.0); Immature Granulocytes % 2.4 %; Immature Granulocytes Absolute 0.27 #; Lymphocytes # 0.8 10*3/uL (1.4-4.0); Lymphocytes % 6.7 % (21.2-54.2); Mean Corpuscular HGB Conc 29.7 GM/DL (32-36); Mean Platelet Volume 10.9 FL (9.6-12.0); Monocytes % 3.7 % (1.7-12.7); Neutrophils % 84.2 % (38.7-73.9); Platelet Count 303 T/CUMM (130-400); Red Blood Count 3.61 MC/CUMM (3.8-5.5); Red Cell Distribution Width 14.6 % (9.3-17.3); White Blood Count 11.4 T/CUMM (4-12)
[2020-11-30 06:18] LABS: Albumin 1.6 G/DL (3.4-5.0); Bilirubin,Total 0.6 MG/DL (0.20-1.00); Calcium 8.5 MG/DL (8.5-10.1); Osmolality,Calculated 351.6 MOS/KG (273-304); Potassium 4.1 MMOL/L (3.5-5.1); Total Protein 5.7 G/DL (6.4-8.2)
[2020-11-30] MEDS: INSULIN LISPRO 100 UNIT/ML SUBCUT SCH ×3 (06:27→18:17)
[2020-11-30] MEDS: CHOLECALCIFEROL 1,000 UNIT TABLET PO SCH (08:36)
[2020-11-30] MEDS: DOCUSATE SODIUM 100 MG/10 ML UDCUP PO SCH ×2 (08:36→21:55)
[2020-11-30] MEDS: AMIODARONE 200 MG TABLET PO SCH ×2 (08:37→21:55)
[2020-11-30] MEDS: carvediloL 25 MG TABLET PO SCH ×2 (08:37→21:55)
[2020-11-30] MEDS: allopurinoL 300 MG TABLET PO SCH (08:37)
[2020-11-30] MEDS: ASCORBIC ACID 500 MG TABLET PO SCH ×2 (08:37→21:55)
[2020-11-30] MEDS: PANTOPRAZOLE 40 MG VIAL IV SCH (08:38)
[2020-11-30] MEDS: cefTRIAXone 1,000 MG in SODIUM CHLORIDE 0.9% 100 ML IV SCH (10:35)
[2020-11-30] MEDS: ACETAMINOPHEN 325 MG TABLET PO PRN (16:30)
[2020-11-30] MEDS: APIXABAN 2.5 MG TABLET PO SCH (21:55)
[2020-11-30] MEDS ORDERED: ALBUTEROL 2.5 MG/3 ML NEB RESP TX PRN (23:06)
[2020-12-01] MEDS: ALBUTEROL/IPRATROPIUM 3 ML NEB RESP TX SCH ×4 (00:29→19:40)
[2020-12-01] MEDS: INSULIN LISPRO 100 UNIT/ML SUBCUT SCH ×5 (01:30→23:19)
[2020-12-01 04:11] LABS: ABG Base Excess -1.7 MMOL/L (-2.5-2.5); ABG Oxygen Saturation 97.7 % (95-100); ABG PCO2 38.7 MM HG (35-48); ABG PH 7.392 (7.35-7.45); ABG PO2 109.1 MM HG (80-95); ABG TCO2 24.2 MMOL/L (23-27)
[2020-12-01 05:47] LABS: Basophils # 0.1 10*3/uL (0.0-0.2); Basophils % 0.4 % (0.0-0.8); Eosinophils # 0.3 10*3/uL (0.0-0.87); Eosinophils % 2.1 % (0.00-10.9); Hematocrit 32.8 VOL% (42.0-52.0); Hemoglobin 9.7 GM/DL (14.0-18.0); Immature Granulocytes % 1.8 %; Immature Granulocytes Absolute 0.23 #; Lymphocytes # 1.4 10*3/uL (1.4-4.0); Lymphocytes % 10.8 % (21.2-54.2); Mean Corpuscular HGB Conc 29.6 GM/DL (32-36); Mean Corpuscular Volume 95.9 FL (87-102); Monocytes % 4.6 % (1.7-12.7); Neutrophils % 80.3 % (38.7-73.9); Platelet Count 307 T/CUMM (130-400); Red Blood Count 3.42 MC/CUMM (3.8-5.5); Red Cell Distribution Width 14.6 % (9.3-17.3); White Blood Count 12.5 T/CUMM (4-12)
[2020-12-01 06:03] LABS: Calcium 8.5 MG/DL (8.5-10.1); Osmolality,Calculated 349.6 MOS/KG (273-304); Potassium 4.1 MMOL/L (3.5-5.1)
[2020-12-01] MEDS ORDERED: SODIUM BICARBONATE 50 MEQ/50 ML VIAL IV ONE ×2 (06:30→06:31)
[2020-12-01] MEDS ORDERED: FUROSEMIDE 40 MG/4 ML VIAL IV ONE (08:32)
[2020-12-01] MEDS: CHOLECALCIFEROL 1,000 UNIT TABLET PO SCH (08:58)
[2020-12-01] MEDS: AMIODARONE 200 MG TABLET PO SCH ×2 (08:58→21:55)
[2020-12-01] MEDS: allopurinoL 300 MG TABLET PO SCH (08:58)
[2020-12-01] MEDS: ASCORBIC ACID 500 MG TABLET PO SCH ×2 (08:58→21:55)
[2020-12-01] MEDS: carvediloL 25 MG TABLET PO SCH ×2 (08:58→21:55)
[2020-12-01] MEDS: DOCUSATE SODIUM 100 MG/10 ML UDCUP PO SCH ×2 (08:59→21:55)
[2020-12-01] MEDS: PANTOPRAZOLE 40 MG VIAL IV SCH (08:59)
[2020-12-01] MEDS: APIXABAN 2.5 MG TABLET PO SCH ×2 (08:59→21:55)
[2020-12-01] MEDS: cefTRIAXone 1,000 MG in SODIUM CHLORIDE 0.9% 100 ML IV SCH (10:39)
[2020-12-02] MEDS: ALBUTEROL/IPRATROPIUM 3 ML NEB RESP TX SCH ×4 (01:09→20:55)
[2020-12-02 03:48] LABS: ABG Base Excess 0.4 MMOL/L (-2.5-2.5); ABG HCO3 25.8 MMOL/L (20-26); ABG Oxygen Saturation 97.2 % (95-100); ABG PCO2 45.2 MM HG (35-48); ABG PH 7.374 (7.35-7.45); ABG PO2 96.7 MM HG (80-95); ABG TCO2 27.2 MMOL/L (23-27)
[2020-12-02 05:09] LABS: Basophils # 0.1 10*3/uL (0.0-0.2); Basophils % 0.5 % (0.0-0.8); Eosinophils # 0.4 10*3/uL (0.0-0.87); Eosinophils % 2.9 % (0.00-10.9); Hematocrit 33.5 VOL% (42.0-52.0); Hemoglobin 10.1 GM/DL (14.0-18.0); Immature Granulocytes % 1.7 %; Lymphocytes # 1.1 10*3/uL (1.4-4.0); Lymphocytes % 9.2 % (21.2-54.2); Mean Corpuscular HGB Conc 30.1 GM/DL (32-36); Mean Corpuscular Volume 95.4 FL (87-102); Mean Platelet Volume 12.2 FL (9.6-12.0); Monocytes % 4.5 % (1.7-12.7); Neutrophils % 81.2 % (38.7-73.9); Red Blood Count 3.51 MC/CUMM (3.8-5.5); Red Cell Distribution Width 14.6 % (9.3-17.3)
[2020-12-02 05:21] LABS: Platelet Count 208 T/CUMM (130-400)
[2020-12-02 05:26] LABS: Calcium 8.4 MG/DL (8.5-10.1); Osmolality,Calculated 347.3 MOS/KG (273-304); Potassium 4.4 MMOL/L (3.5-5.1)
[2020-12-02] MEDS: INSULIN LISPRO 100 UNIT/ML SUBCUT SCH ×3 (06:04→18:29)
[2020-12-02] MEDS: cefTRIAXone 1,000 MG in SODIUM CHLORIDE 0.9% 100 ML IV SCH (09:43)
[2020-12-02] MEDS: PANTOPRAZOLE 40 MG VIAL IV SCH (09:45)
[2020-12-02] MEDS: HYDROmorphone 2 MG/1 ML VIAL IV PRN ×2 (09:48→18:10)
[2020-12-02] MEDS: ASCORBIC ACID 500 MG TABLET PO SCH ×2 (09:53→20:14)
[2020-12-02] MEDS: allopurinoL 300 MG TABLET PO SCH (09:53)
[2020-12-02] MEDS: carvediloL 25 MG TABLET PO SCH ×2 (09:53→20:14)
[2020-12-02] MEDS: APIXABAN 2.5 MG TABLET PO SCH ×2 (09:53→20:14)
[2020-12-02] MEDS: CHOLECALCIFEROL 1,000 UNIT TABLET PO SCH (09:54)
[2020-12-02] MEDS: AMIODARONE 200 MG TABLET PO SCH ×2 (09:54→20:14)
[2020-12-02] MEDS: ALBUMIN 25% 25 GM/100 ML VIAL IV SCH ×3 (10:39→18:50)
[2020-12-02] MEDS: ASPIRIN CHEW 81 MG TABLET PO SCH ×2 (18:29→19:47)
[2020-12-02] MEDS: ZINC OXIDE PASTE 113 GM TUBE TOP SCH (18:29)
[2020-12-02] MEDS: hydrALAZINE 20 MG/1 ML VIAL IV PRN (21:15)
[2020-12-03] MEDS: INSULIN LISPRO 100 UNIT/ML SUBCUT SCH ×4 (00:18→18:07)
[2020-12-03] MEDS: ZINC OXIDE PASTE 113 GM TUBE TOP SCH ×3 (00:46→21:34)
[2020-12-03] MEDS: ALBUTEROL/IPRATROPIUM 3 ML NEB RESP TX SCH ×4 (00:48→19:58)
[2020-12-03] MEDS: ALBUMIN 25% 25 GM/100 ML VIAL IV SCH (02:14)
[2020-12-03] MEDS: hydrALAZINE 20 MG/1 ML VIAL IV PRN (06:06)
[2020-12-03 06:08] LABS: ABG Base Excess -1.9 MMOL/L (-2.5-2.5); ABG HCO3 22.8 MMOL/L (20-26); ABG Oxygen Saturation 96.4 % (95-100); ABG PCO2 31.5 MM HG (35-48); ABG PH 7.442 (7.35-7.45); ABG PO2 79.7 MM HG (80-95); ABG TCO2 19.6 MMOL/L (23-27)
[2020-12-03 07:02] LABS: Basophils % 0.3 % (0.0-0.8); Eosinophils # 0.4 10*3/uL (0.0-0.87); Eosinophils % 3.2 % (0.00-10.9); Hematocrit 31.2 VOL% (42.0-52.0); Hemoglobin 9.4 GM/DL (14.0-18.0); Immature Granulocytes % 1.2 %; Immature Granulocytes Absolute 0.14 #; Lymphocytes # 0.7 10*3/uL (1.4-4.0); Lymphocytes % 6.1 % (21.2-54.2); Mean Corpuscular HGB Conc 30.1 GM/DL (32-36); Mean Corpuscular Volume 93.7 FL (87-102); Monocytes % 3.9 % (1.7-12.7); Neutrophils % 85.3 % (38.7-73.9); Platelet Count 343 T/CUMM (130-400); Red Blood Count 3.33 MC/CUMM (3.8-5.5); Red Cell Distribution Width 14.5 % (9.3-17.3); White Blood Count 11.7 T/CUMM (4-12)
[2020-12-03 07:19] LABS: Albumin 2.5 G/DL (3.4-5.0); Calcium 8.8 MG/DL (8.5-10.1); Osmolality,Calculated 334.4 MOS/KG (273-304); Potassium 3.6 MMOL/L (3.5-5.1); Total Protein 5.9 G/DL (6.4-8.2)
[2020-12-03] MEDS: allopurinoL 300 MG TABLET PO SCH (08:32)
[2020-12-03] MEDS: ASCORBIC ACID 500 MG TABLET PO SCH ×2 (08:32→21:34)
[2020-12-03] MEDS: CHOLECALCIFEROL 1,000 UNIT TABLET PO SCH (08:33)
[2020-12-03] MEDS: carvediloL 25 MG TABLET PO SCH ×2 (08:33→21:33)
[2020-12-03] MEDS: APIXABAN 2.5 MG TABLET PO SCH ×2 (08:33→21:33)
[2020-12-03] MEDS: AMIODARONE 200 MG TABLET PO SCH ×2 (08:33→21:34)
[2020-12-03] MEDS: PANTOPRAZOLE 40 MG VIAL IV SCH (08:34)
[2020-12-03] MEDS ORDERED: ASPIRIN CHEW 81 MG TABLET PO SCH (09:00)
[2020-12-03] MEDS: cefTRIAXone 1,000 MG in SODIUM CHLORIDE 0.9% 100 ML IV SCH (10:06)
[2020-12-03] MEDS: ASPIRIN CHEW 81 MG TABLET PO SCH (20:25)
[2020-12-04] MEDS: ALBUTEROL/IPRATROPIUM 3 ML NEB RESP TX SCH ×4 (00:28→20:32)
[2020-12-04] MEDS: INSULIN LISPRO 100 UNIT/ML SUBCUT SCH ×4 (00:36→18:11)
[2020-12-04] MEDS: carvediloL 25 MG TABLET PO SCH ×2 (09:04→20:41)
[2020-12-04] MEDS: AMIODARONE 200 MG TABLET PO SCH ×2 (09:04→20:42)
[2020-12-04] MEDS: allopurinoL 300 MG TABLET PO SCH (09:04)
[2020-12-04] MEDS: CHOLECALCIFEROL 1,000 UNIT TABLET PO SCH (09:04)
[2020-12-04] MEDS: ASCORBIC ACID 500 MG TABLET PO SCH ×2 (09:05→20:41)
[2020-12-04] MEDS: APIXABAN 2.5 MG TABLET PO SCH ×2 (09:05→20:41)
[2020-12-04] MEDS: PANTOPRAZOLE 40 MG VIAL IV SCH (09:11)
[2020-12-04] MEDS: cefTRIAXone 1,000 MG in SODIUM CHLORIDE 0.9% 100 ML IV SCH (09:11)
[2020-12-04] MEDS: ZINC OXIDE PASTE 113 GM TUBE TOP SCH ×2 (09:38→20:42)
[2020-12-04] MEDS: ONDANSETRON 4 MG/2 ML VIAL IV PRN ×2 (13:50→20:50)
[2020-12-04] MEDS: HYDROmorphone 2 MG/1 ML VIAL IV PRN (20:50)
[2020-12-05] MEDS: INSULIN LISPRO 100 UNIT/ML SUBCUT SCH ×4 (00:16→17:27)
[2020-12-05] MEDS: ALBUTEROL/IPRATROPIUM 3 ML NEB RESP TX SCH ×4 (01:09→20:11)
[2020-12-05 04:39] LABS: Basophils # 0.1 10*3/uL (0.0-0.2); Basophils % 0.4 % (0.0-0.8); Eosinophils # 0.4 10*3/uL (0.0-0.87); Eosinophils % 3.3 % (0.00-10.9); Hemoglobin 9.3 GM/DL (14.0-18.0); Immature Granulocytes % 1.2 %; Immature Granulocytes Absolute 0.15 #; Lymphocytes # 1.4 10*3/uL (1.4-4.0); Lymphocytes % 11.5 % (21.2-54.2); Mean Corpuscular Volume 95.1 FL (87-102); Mean Platelet Volume 10.6 FL (9.6-12.0); Monocytes % 5.3 % (1.7-12.7); Neutrophils % 78.3 % (38.7-73.9); Platelet Count 327 T/CUMM (130-400); Red Blood Count 3.26 MC/CUMM (3.8-5.5); Red Cell Distribution Width 14.8 % (9.3-17.3); White Blood Count 12.3 T/CUMM (4-12)
[2020-12-05 05:02] LABS: Calcium 8.5 MG/DL (8.5-10.1); Osmolality,Calculated 321.7 MOS/KG (273-304); Potassium 3.6 MMOL/L (3.5-5.1)
[2020-12-05] MEDS: allopurinoL 300 MG TABLET PO SCH (08:51)
[2020-12-05] MEDS: AMIODARONE 200 MG TABLET PO SCH ×2 (08:51→21:32)
[2020-12-05] MEDS: ASCORBIC ACID 500 MG TABLET PO SCH ×2 (08:51→21:32)
[2020-12-05] MEDS: CHOLECALCIFEROL 1,000 UNIT TABLET PO SCH (08:52)
[2020-12-05] MEDS: APIXABAN 2.5 MG TABLET PO SCH ×2 (08:52→21:32)
[2020-12-05] MEDS: carvediloL 25 MG TABLET PO SCH ×2 (08:52→21:32)
[2020-12-05] MEDS: ZINC OXIDE PASTE 113 GM TUBE TOP SCH ×2 (08:57→21:32)
[2020-12-05] MEDS: PANTOPRAZOLE 40 MG VIAL IV SCH (08:57)
[2020-12-05] MEDS: cefTRIAXone 1,000 MG in SODIUM CHLORIDE 0.9% 100 ML IV SCH (09:28)
[2020-12-05] MEDS: POTASSIUM CHLORIDE 20 MEQ TABLET PO PRN ×2 (09:29→10:41)
[2020-12-06] MEDS: INSULIN LISPRO 100 UNIT/ML SUBCUT SCH ×4 (00:35→17:53)
[2020-12-06] MEDS: ALBUTEROL/IPRATROPIUM 3 ML NEB RESP TX SCH ×4 (01:41→18:53)
[2020-12-06] MEDS: ASCORBIC ACID 500 MG TABLET PO SCH ×2 (09:01→21:37)
[2020-12-06] MEDS: allopurinoL 300 MG TABLET PO SCH (09:01)
[2020-12-06] MEDS: APIXABAN 2.5 MG TABLET PO SCH ×2 (09:01→21:37)
[2020-12-06] MEDS: AMIODARONE 200 MG TABLET PO SCH ×2 (09:01→21:37)
[2020-12-06] MEDS: CHOLECALCIFEROL 1,000 UNIT TABLET PO SCH (09:01)
[2020-12-06] MEDS: carvediloL 25 MG TABLET PO SCH ×2 (09:01→21:37)
[2020-12-06] MEDS: PANTOPRAZOLE 40 MG VIAL IV SCH (09:49)
[2020-12-06] MEDS: cefTRIAXone 1,000 MG in SODIUM CHLORIDE 0.9% 100 ML IV SCH (09:56)
[2020-12-06 11:32] LABS: Calcium 8.2 MG/DL (8.5-10.1); Osmolality,Calculated 305.8 MOS/KG (273-304); Potassium 3.7 MMOL/L (3.5-5.1)
[2020-12-06] MEDS: ZINC OXIDE PASTE 113 GM TUBE TOP SCH (12:43)
[2020-12-07] MEDS: ALBUTEROL/IPRATROPIUM 3 ML NEB RESP TX SCH ×4 (01:30→19:30)
[2020-12-07] MEDS: ZINC OXIDE PASTE 113 GM TUBE TOP SCH ×3 (02:18→22:40)
[2020-12-07] MEDS: INSULIN LISPRO 100 UNIT/ML SUBCUT SCH ×4 (02:19→18:19)
[2020-12-07 06:38] LABS: Calcium 8.4 MG/DL (8.5-10.1); Osmolality,Calculated 303.8 MOS/KG (273-304); Potassium 4.1 MMOL/L (3.5-5.1)
[2020-12-07] MEDS: CHOLECALCIFEROL 1,000 UNIT TABLET PO SCH (08:56)
[2020-12-07] MEDS: AMIODARONE 200 MG TABLET PO SCH ×2 (08:56→22:05)
[2020-12-07] MEDS: ASCORBIC ACID 500 MG TABLET PO SCH ×2 (08:57→22:05)
[2020-12-07] MEDS: carvediloL 25 MG TABLET PO SCH ×2 (08:57→22:06)
[2020-12-07] MEDS: APIXABAN 2.5 MG TABLET PO SCH ×2 (08:57→22:06)
[2020-12-07] MEDS: allopurinoL 300 MG TABLET PO SCH (08:57)
[2020-12-07] MEDS: PANTOPRAZOLE 40 MG VIAL IV SCH (08:57)
[2020-12-07] MEDS: cefTRIAXone 1,000 MG in SODIUM CHLORIDE 0.9% 100 ML IV SCH (11:50)
[2020-12-07] MEDS: ONDANSETRON 4 MG/2 ML VIAL IV PRN (23:17)
[2020-12-08] MEDS: ALBUTEROL/IPRATROPIUM 3 ML NEB RESP TX SCH ×4 (01:45→19:40)
[2020-12-08] MEDS: INSULIN LISPRO 100 UNIT/ML SUBCUT SCH ×5 (02:39→23:53)
[2020-12-08 07:23] LABS: Calcium 8.8 MG/DL (8.5-10.1); Osmolality,Calculated 303.7 MOS/KG (273-304); Potassium 4.2 MMOL/L (3.5-5.1)
[2020-12-08] MEDS: ASCORBIC ACID 500 MG TABLET PO SCH ×2 (09:11→20:43)
[2020-12-08] MEDS: APIXABAN 2.5 MG TABLET PO SCH ×2 (09:11→20:43)
[2020-12-08] MEDS: carvediloL 25 MG TABLET PO SCH ×2 (09:11→20:44)
[2020-12-08] MEDS: AMIODARONE 200 MG TABLET PO SCH ×2 (09:11→20:43)
[2020-12-08] MEDS: PANTOPRAZOLE 40 MG VIAL IV SCH (09:11)
[2020-12-08] MEDS: allopurinoL 300 MG TABLET PO SCH (09:11)
[2020-12-08] MEDS: CHOLECALCIFEROL 1,000 UNIT TABLET PO SCH (09:11)
[2020-12-08] MEDS: cefTRIAXone 1,000 MG in SODIUM CHLORIDE 0.9% 100 ML IV SCH (09:12)
[2020-12-08] MEDS: ZINC OXIDE PASTE 113 GM TUBE TOP SCH ×2 (09:12→20:44)
[2020-12-09] MEDS: ALBUTEROL/IPRATROPIUM 3 ML NEB RESP TX SCH ×3 (00:42→12:35)
[2020-12-09] MEDS: INSULIN LISPRO 100 UNIT/ML SUBCUT SCH ×2 (06:32→13:09)
[2020-12-09 08:26] LABS: Calcium 8.8 MG/DL (8.5-10.1); Osmolality,Calculated 297.8 MOS/KG (273-304); Potassium 3.9 MMOL/L (3.5-5.1)
[2020-12-09] MEDS: AMIODARONE 200 MG TABLET PO SCH (09:36)
[2020-12-09] MEDS: APIXABAN 2.5 MG TABLET PO SCH (09:36)
[2020-12-09] MEDS: CHOLECALCIFEROL 1,000 UNIT TABLET PO SCH (09:36)
[2020-12-09] MEDS: carvediloL 25 MG TABLET PO SCH (09:36)
[2020-12-09] MEDS: ZINC OXIDE PASTE 113 GM TUBE TOP SCH (09:36)
[2020-12-09] MEDS: allopurinoL 300 MG TABLET PO SCH (09:36)
[2020-12-09] MEDS: ASCORBIC ACID 500 MG TABLET PO SCH (09:36)
[2020-12-09] MEDS: cefTRIAXone 1,000 MG in SODIUM CHLORIDE 0.9% 100 ML IV SCH (09:41)
[2020-12-09] MEDS: PANTOPRAZOLE 40 MG VIAL IV SCH (09:41)
[2020-12-09 12:04] VITALS: BP 149/56
== END 2020-12-09 14:43 | disposition swing bed (61) | DRG 438 ==
LOC: N.ED 11:59 → N.EDINP 13:40 → SUATTDRO 13:40 → N.EDINP 15:45 → N.3E 16:11 → N.ICU 11-16 11:06 → N.5E 11-21 17:59 → N.ICU 11-22 06:58 → N.TELES 12-03 18:41
PROVIDERS: ADMIT Family Medicine; ATTEND Family Medicine

== ENCOUNTER 2020-12-12 08:29 | Inpatient (IN) ==
[2020-12-12] MEDS ORDERED: ONDANSETRON 4 MG/2 ML VIAL IV STA (08:59)
[2020-12-12 09:32] LABS: Basophils % 0.3 % (0.0-0.8); Eosinophils # 0.2 10*3/uL (0.0-0.87); Eosinophils % 1.7 % (0.00-10.9); Hematocrit 36.7 VOL% (42.0-52.0); Hemoglobin 11.1 GM/DL (14.0-18.0); Immature Granulocytes Absolute 0.41 #; Lymphocytes # 1.3 10*3/uL (1.4-4.0); Lymphocytes % 9.5 % (21.2-54.2); Mean Corpuscular HGB Conc 30.2 GM/DL (32-36); Mean Corpuscular Volume 94.6 FL (87-102); Mean Platelet Volume 10.1 FL (9.6-12.0); Monocytes % 6.1 % (1.7-12.7); Neutrophils % 79.4 % (38.7-73.9); Platelet Count 286 T/CUMM (130-400); Red Blood Count 3.88 MC/CUMM (3.8-5.5); Red Cell Distribution Width 16.8 % (9.3-17.3); White Blood Count 13.8 T/CUMM (4-12)
[2020-12-12 09:53] LABS: Albumin 2.6 G/DL (3.4-5.0); Bilirubin,Total 0.4 MG/DL (0.20-1.00); Calcium 8.9 MG/DL (8.5-10.1); Osmolality,Calculated 292.7 MOS/KG (273-304); Potassium 3.8 MMOL/L (3.5-5.1); Total Protein 6.4 G/DL (6.4-8.2)
[2020-12-12] MEDS ORDERED: PROMETHAZINE 25 MG/1 ML VIAL IM STA (09:57)
[2020-12-12] MEDS ORDERED: PROMETHAZINE 25 MG/1 ML VIAL ONE (09:58)
[2020-12-12] MEDS ORDERED: ONDANSETRON 4 MG/2 ML VIAL IV PRN (12:35)
[2020-12-12] MEDS ORDERED: ONDANSETRON HCL IV PRN (12:39)
[2020-12-12] MEDS ORDERED: DEXTROSE 50% 25 GM/50 ML SYRINGE IV ONE (12:55)
[2020-12-12] MEDS ORDERED: DEXTROSE 50% 25 GM/50 ML VIAL IV STA (12:56)
[2020-12-12] MEDS ORDERED: SODIUM CHLORIDE 0.45% 1,000 ML IV SCH (13:00)
[2020-12-12] MEDS: DEXTROSE 5% 1,000 ML IV SCH (17:43)
[2020-12-12] MEDS: DILTIAZEM 60 MG TABLET PO SCH (20:20)
[2020-12-12] MEDS: AMIODARONE 200 MG TABLET PO SCH (20:20)
[2020-12-12] MEDS: ZINC OXIDE PASTE 113 GM TUBE TOP SCH (20:33)
[2020-12-13] MEDS: DEXTROSE 5% 1,000 ML IV SCH ×3 (02:52→23:53)
[2020-12-13] MEDS: AMIODARONE 200 MG TABLET PO SCH ×2 (09:08→21:37)
[2020-12-13] MEDS: ZINC OXIDE PASTE 113 GM TUBE TOP SCH ×2 (09:09→21:38)
[2020-12-13] MEDS: DILTIAZEM 60 MG TABLET PO SCH ×2 (11:42→21:37)
[2020-12-13] MEDS ORDERED: PROMETHAZINE 25 MG/1 ML VIAL IM PRN (18:48)
[2020-12-14 09:13] LABS: Basophils % 0.2 % (0.0-0.8); Eosinophils # 0.2 10*3/uL (0.0-0.87); Eosinophils % 2.8 % (0.00-10.9); Hemoglobin 9.9 GM/DL (14.0-18.0); Immature Granulocytes % 1.4 %; Immature Granulocytes Absolute 0.12 #; Lymphocytes # 1.2 10*3/uL (1.4-4.0); Lymphocytes % 14.2 % (21.2-54.2); Mean Corpuscular HGB Conc 30.9 GM/DL (32-36); Mean Platelet Volume 10.3 FL (9.6-12.0); Neutrophils % 74.4 % (38.7-73.9); Platelet Count 182 T/CUMM (130-400); Red Blood Count 3.44 MC/CUMM (3.8-5.5); Red Cell Distribution Width 16.7 % (9.3-17.3); White Blood Count 8.4 T/CUMM (4-12)
[2020-12-14 09:32] LABS: Calcium 8.2 MG/DL (8.5-10.1); Osmolality,Calculated 284.7 MOS/KG (273-304); Potassium 3.5 MMOL/L (3.5-5.1)
[2020-12-14] MEDS: CHOLECALCIFEROL 1,000 UNIT TABLET PO SCH (09:48)
[2020-12-14] MEDS: carvediloL 25 MG TABLET PO SCH ×2 (09:48→17:50)
[2020-12-14] MEDS: AMIODARONE 200 MG TABLET PO SCH ×2 (09:49→22:27)
[2020-12-14] MEDS: FUROSEMIDE 40 MG TABLET PO SCH ×2 (09:49→16:40)
[2020-12-14] MEDS: APIXABAN 5 MG TABLET PO SCH ×2 (09:49→22:27)
[2020-12-14] MEDS: DILTIAZEM 60 MG TABLET PO SCH ×2 (09:49→22:27)
[2020-12-14] MEDS: ASCORBIC ACID 500 MG TABLET PO SCH ×2 (09:50→22:27)
[2020-12-14] MEDS: allopurinoL 300 MG TABLET PO SCH (09:50)
[2020-12-14] MEDS: METOCLOPRAMIDE 10 MG/10 ML UDCUP PO SCH ×2 (09:50→16:40)
[2020-12-14] MEDS: ASPIRIN EC 81 MG TABLET PO SCH (09:50)
[2020-12-14] MEDS: ZINC OXIDE PASTE 113 GM TUBE TOP SCH ×2 (09:51→22:28)
[2020-12-14] MEDS: DEXTROSE 5% 1,000 ML IV SCH ×2 (10:11→21:07)
[2020-12-14] MEDS: CEFDINIR 300 MG CAPSULE PO SCH ×2 (12:13→22:27)
[2020-12-14] MEDS: PROMETHAZINE 25 MG/1 ML VIAL IM PRN (18:48)
[2020-12-15] MEDS: METOCLOPRAMIDE 10 MG/10 ML UDCUP PO SCH (02:21)
[2020-12-15] MEDS: DEXTROSE 5% 1,000 ML IV SCH ×2 (07:22→19:05)
[2020-12-15] MEDS: PROMETHAZINE 25 MG/1 ML VIAL IM PRN (07:35)
[2020-12-15] MEDS: ZINC OXIDE PASTE 113 GM TUBE TOP SCH ×2 (09:17→20:52)
[2020-12-15] MEDS: CHOLECALCIFEROL 1,000 UNIT TABLET PO SCH (09:17)
[2020-12-15] MEDS: APIXABAN 5 MG TABLET PO SCH ×2 (09:18→20:51)
[2020-12-15] MEDS: CEFDINIR 300 MG CAPSULE PO SCH ×2 (09:18→20:51)
[2020-12-15] MEDS: FUROSEMIDE 40 MG TABLET PO SCH ×2 (09:18→18:47)
[2020-12-15] MEDS: DILTIAZEM 60 MG TABLET PO SCH ×2 (09:18→20:51)
[2020-12-15] MEDS: ASPIRIN EC 81 MG TABLET PO SCH (09:18)
[2020-12-15] MEDS: carvediloL 25 MG TABLET PO SCH ×2 (09:19→19:13)
[2020-12-15] MEDS: allopurinoL 300 MG TABLET PO SCH (09:19)
[2020-12-15] MEDS: ASCORBIC ACID 500 MG TABLET PO SCH ×2 (09:19→20:51)
[2020-12-15] MEDS: AMIODARONE 200 MG TABLET PO SCH ×2 (09:19→20:51)
[2020-12-15 09:49] LABS: Basophils # 0.1 10*3/uL (0.0-0.2); Basophils % 0.5 % (0.0-0.8); Eosinophils # 0.3 10*3/uL (0.0-0.87); Hematocrit 33.4 VOL% (42.0-52.0); Hemoglobin 10.4 GM/DL (14.0-18.0); Immature Granulocytes % 1.1 %; Immature Granulocytes Absolute 0.11 #; Lymphocytes # 1.2 10*3/uL (1.4-4.0); Lymphocytes % 11.8 % (21.2-54.2); Mean Corpuscular HGB Conc 31.1 GM/DL (32-36); Mean Corpuscular Volume 91.5 FL (87-102); Mean Platelet Volume 10.4 FL (9.6-12.0); Monocytes % 8.3 % (1.7-12.7); Neutrophils % 75.3 % (38.7-73.9); Platelet Count 184 T/CUMM (130-400); Red Blood Count 3.65 MC/CUMM (3.8-5.5); Red Cell Distribution Width 16.5 % (9.3-17.3); White Blood Count 10.2 T/CUMM (4-12)
[2020-12-15 10:04] LABS: Calcium 8.1 MG/DL (8.5-10.1); Osmolality,Calculated 278.1 MOS/KG (273-304); Potassium 3.4 MMOL/L (3.5-5.1)
[2020-12-15] MEDS: PANTOPRAZOLE 40 MG VIAL IV SCH (20:51)
[2020-12-16] MEDS: DEXTROSE 5% 1,000 ML IV SCH ×3 (03:02→21:58)
[2020-12-16] MEDS ORDERED: PROMETHAZINE 25 MG/1 ML VIAL IM PRN (07:32)
[2020-12-16] MEDS: ZINC OXIDE PASTE 113 GM TUBE TOP SCH ×2 (09:29→21:58)
[2020-12-16] MEDS: PROMETHAZINE 25 MG/1 ML VIAL IM PRN (12:25)
[2020-12-16] MEDS: ASPIRIN EC 81 MG TABLET PO SCH (13:06)
[2020-12-16] MEDS: carvediloL 25 MG TABLET PO SCH ×2 (13:06→17:47)
[2020-12-16] MEDS: ASCORBIC ACID 500 MG TABLET PO SCH ×2 (13:06→21:57)
[2020-12-16] MEDS: allopurinoL 300 MG TABLET PO SCH (13:06)
[2020-12-16] MEDS: AMIODARONE 200 MG TABLET PO SCH ×2 (13:07→21:57)
[2020-12-16] MEDS: CHOLECALCIFEROL 1,000 UNIT TABLET PO SCH (13:07)
[2020-12-16] MEDS: FUROSEMIDE 40 MG TABLET PO SCH ×2 (13:07→15:45)
[2020-12-16] MEDS: CEFDINIR 300 MG CAPSULE PO SCH ×2 (13:07→21:57)
[2020-12-16] MEDS: APIXABAN 5 MG TABLET PO SCH ×2 (13:07→21:57)
[2020-12-16] MEDS: DILTIAZEM 60 MG TABLET PO SCH ×2 (13:09→21:57)
[2020-12-16] MEDS: PANTOPRAZOLE 40 MG VIAL IV SCH ×2 (13:14→21:57)
[2020-12-17] MEDS ORDERED: propofoL 200 MG/20 ML VIAL IV ONE (10:13)
[2020-12-17] MEDS ORDERED: LIDOCAINE 2% 5 ML VIAL ONE (10:13)
[2020-12-17] MEDS ORDERED: ETOMIDATE 20 MG/10 ML VIAL IV ONE (10:38)
[2020-12-17] MEDS: SODIUM CHLORIDE 0.9% 500 ML IV SCH (10:58)
[2020-12-17] MEDS: CHOLECALCIFEROL 1,000 UNIT TABLET PO SCH (12:51)
[2020-12-17] MEDS: PANTOPRAZOLE 40 MG VIAL IV SCH ×2 (12:51→22:07)
[2020-12-17] MEDS: FUROSEMIDE 40 MG TABLET PO SCH ×2 (12:52→17:31)
[2020-12-17] MEDS: ASPIRIN EC 81 MG TABLET PO SCH (12:52)
[2020-12-17] MEDS: CEFDINIR 300 MG CAPSULE PO SCH ×2 (12:52→22:06)
[2020-12-17] MEDS: carvediloL 25 MG TABLET PO SCH ×2 (12:52→17:32)
[2020-12-17] MEDS: DILTIAZEM 60 MG TABLET PO SCH ×2 (12:52→22:06)
[2020-12-17] MEDS: ASCORBIC ACID 500 MG TABLET PO SCH ×2 (12:52→22:07)
[2020-12-17] MEDS: AMIODARONE 200 MG TABLET PO SCH ×2 (12:52→22:06)
[2020-12-17] MEDS: allopurinoL 300 MG TABLET PO SCH (12:52)
[2020-12-17] MEDS: APIXABAN 5 MG TABLET PO SCH ×2 (12:52→22:07)
[2020-12-17] MEDS: ZINC OXIDE PASTE 113 GM TUBE TOP SCH ×2 (12:53→22:07)
[2020-12-18] MEDS: PROMETHAZINE 25 MG/1 ML VIAL IM PRN ×2 (00:45→09:02)
[2020-12-18] MEDS: DEXTROSE 5% 1,000 ML IV SCH (07:57)
[2020-12-18] MEDS: PANTOPRAZOLE 40 MG VIAL IV SCH ×2 (09:04→20:08)
[2020-12-18] MEDS ORDERED: PROCHLORPERAZINE 10 MG/2 ML VIAL IM PRN (09:53)
[2020-12-18] MEDS: ONDANSETRON 4 MG/2 ML VIAL IV PRN ×2 (10:46→19:03)
[2020-12-18] MEDS: carvediloL 25 MG TABLET PO SCH ×2 (10:57→17:05)
[2020-12-18] MEDS: ASPIRIN EC 81 MG TABLET PO SCH (10:57)
[2020-12-18] MEDS: FUROSEMIDE 40 MG TABLET PO SCH (10:57)
[2020-12-18] MEDS: DILTIAZEM 60 MG TABLET PO SCH ×2 (10:57→20:08)
[2020-12-18] MEDS: CEFDINIR 300 MG CAPSULE PO SCH (10:58)
[2020-12-18] MEDS: ZINC OXIDE PASTE 113 GM TUBE TOP SCH ×2 (10:58→20:09)
[2020-12-18] MEDS: ASCORBIC ACID 500 MG TABLET PO SCH ×2 (10:58→20:08)
[2020-12-18] MEDS: CHOLECALCIFEROL 1,000 UNIT TABLET PO SCH (10:58)
[2020-12-18] MEDS: AMIODARONE 200 MG TABLET PO SCH ×2 (10:58→20:09)
[2020-12-18] MEDS: APIXABAN 5 MG TABLET PO SCH ×2 (10:58→20:09)
[2020-12-18] MEDS: allopurinoL 300 MG TABLET PO SCH (10:59)
[2020-12-18] MEDS ORDERED: FUROSEMIDE 40 MG/4 ML VIAL IV ONE (13:24)
[2020-12-18] MEDS: MEROPENEM 500 MG in SODIUM CHLORIDE 0.9% 100 ML IV SCH ×2 (14:35→23:28)
[2020-12-18] MEDS: SODIUM CHLORIDE 0.9% 500 ML IV SCH (14:39)
[2020-12-18 14:48] LABS: Basophils % 0.2 % (0.0-0.8); Eosinophils # 0.2 10*3/uL (0.0-0.87); Eosinophils % 2.2 % (0.00-10.9); Hematocrit 34.5 VOL% (42.0-52.0); Hemoglobin 10.9 GM/DL (14.0-18.0); Immature Granulocytes % 2.1 %; Immature Granulocytes Absolute 0.17 #; Lymphocytes # 1.2 10*3/uL (1.4-4.0); Lymphocytes % 14.8 % (21.2-54.2); Mean Corpuscular HGB Conc 31.6 GM/DL (32-36); Mean Corpuscular Volume 89.8 FL (87-102); Neutrophils % 70.7 % (38.7-73.9); Platelet Count 179 T/CUMM (130-400); Red Blood Count 3.84 MC/CUMM (3.8-5.5); Red Cell Distribution Width 16.6 % (9.3-17.3); White Blood Count 8.2 T/CUMM (4-12)
[2020-12-18 15:01] LABS: Calcium 8.3 MG/DL (8.5-10.1); Potassium 3.3 MMOL/L (3.5-5.1)
[2020-12-18] MEDS ORDERED: MANGANESE IV SCH (17:00)
[2020-12-18] MEDS ORDERED: [UNRECOGNIZED DRUG - OTHER] IV SCH (17:00)
[2020-12-18] MEDS ORDERED: SELENIUM IV SCH (17:00)
[2020-12-18] MEDS ORDERED: INSULIN REGULAR IV SCH (17:00)
[2020-12-18] MEDS ORDERED: MULTIVITAMIN IV SCH (17:00)
[2020-12-18] MEDS ORDERED: ZINC IV SCH (17:00)
[2020-12-18] MEDS ORDERED: COPPER IV SCH (17:00)
[2020-12-18] MEDS: DEXT 5% NACL 0.9% KCL 20 MEQ 20 MEQ/1,000 ML BAG IV SCH ×2 (17:35→23:43)
[2020-12-19 05:28] LABS: Basophils % 0.2 % (0.0-0.8); Eosinophils # 0.1 10*3/uL (0.0-0.87); Eosinophils % 1.8 % (0.00-10.9); Hematocrit 24.3 VOL% (42.0-52.0); Hemoglobin 7.7 GM/DL (14.0-18.0); Immature Granulocytes % 2.2 %; Immature Granulocytes Absolute 0.14 #; Lymphocytes % 15.5 % (21.2-54.2); Mean Corpuscular HGB Conc 31.7 GM/DL (32-36); Mean Platelet Volume 10.7 FL (9.6-12.0); Monocytes % 12.7 % (1.7-12.7); Neutrophils % 67.6 % (38.7-73.9); Platelet Count 114 T/CUMM (130-400); Red Blood Count 2.67 MC/CUMM (3.8-5.5); Red Cell Distribution Width 16.6 % (9.3-17.3); White Blood Count 6.2 T/CUMM (4-12)
[2020-12-19] MEDS: MEROPENEM 500 MG in SODIUM CHLORIDE 0.9% 100 ML IV SCH ×3 (05:45→22:42)
[2020-12-19 06:41] LABS: Hematocrit 33.8 VOL% (42.0-52.0); Hemoglobin 10.6 GM/DL (14.0-18.0)
[2020-12-19 06:55] LABS: Albumin 2.1 G/DL (3.4-5.0); Bilirubin,Total 0.4 MG/DL (0.20-1.00); Potassium 3.1 MMOL/L (3.5-5.1); Total Protein 5.1 G/DL (6.4-8.2)
[2020-12-19] MEDS: ONDANSETRON 4 MG/2 ML VIAL IV PRN ×2 (09:23→18:27)
[2020-12-19] MEDS: FUROSEMIDE 40 MG/4 ML VIAL IV SCH (09:29)
[2020-12-19] MEDS: DILTIAZEM 60 MG TABLET PO SCH (09:29)
[2020-12-19] MEDS: CHOLECALCIFEROL 1,000 UNIT TABLET PO SCH (09:29)
[2020-12-19] MEDS: AMIODARONE 200 MG TABLET PO SCH (09:29)
[2020-12-19] MEDS: allopurinoL 300 MG TABLET PO SCH (09:29)
[2020-12-19] MEDS: ASPIRIN EC 81 MG TABLET PO SCH (09:30)
[2020-12-19] MEDS: PANTOPRAZOLE 40 MG VIAL IV SCH ×2 (09:30→22:41)
[2020-12-19] MEDS: ASCORBIC ACID 500 MG TABLET PO SCH (09:30)
[2020-12-19] MEDS: APIXABAN 5 MG TABLET PO SCH (09:30)
[2020-12-19] MEDS: ZINC OXIDE PASTE 113 GM TUBE TOP SCH ×2 (09:30→22:43)
[2020-12-19] MEDS: carvediloL 25 MG TABLET PO SCH (09:30)
[2020-12-19] MEDS: PROMETHAZINE 25 MG/1 ML VIAL IM PRN (13:10)
[2020-12-19] MEDS ORDERED: MULTIVITAMIN IV SCH (17:00)
[2020-12-19] MEDS ORDERED: COPPER IV SCH (17:00)
[2020-12-19] MEDS ORDERED: SELENIUM IV SCH (17:00)
[2020-12-19] MEDS ORDERED: ZINC IV SCH (17:00)
[2020-12-19] MEDS ORDERED: INSULIN REGULAR IV SCH (17:00)
[2020-12-19] MEDS ORDERED: [UNRECOGNIZED DRUG - OTHER] IV SCH (17:00)
[2020-12-19] MEDS ORDERED: MANGANESE IV SCH (17:00)
[2020-12-19] MEDS: ENOXAPARIN 40 MG/0.4 ML SYRINGE SUBCUT SCH (18:27)
[2020-12-19] MEDS: FAT EMULSION 20% 250 ML IV SCH (18:33)
[2020-12-19] MEDS: DEXT 5% NACL 0.9% KCL 20 MEQ 20 MEQ/1,000 ML BAG IV SCH ×2 (19:15→22:44)
[2020-12-19] MEDS: METOPROLOL TARTRATE 5 MG/5 ML VIAL IV SCH (22:42)
[2020-12-20 04:48] LABS: Basophils % 0.2 % (0.0-0.8); Eosinophils # 0.1 10*3/uL (0.0-0.87); Eosinophils % 1.3 % (0.00-10.9); Hemoglobin 10.5 GM/DL (14.0-18.0); Immature Granulocytes % 2.6 %; Immature Granulocytes Absolute 0.25 #; Lymphocytes # 1.2 10*3/uL (1.4-4.0); Lymphocytes % 12.1 % (21.2-54.2); Mean Corpuscular HGB Conc 30.9 GM/DL (32-36); Mean Corpuscular Volume 91.2 FL (87-102); Mean Platelet Volume 11.1 FL (9.6-12.0); Monocytes % 9.5 % (1.7-12.7); Neutrophils % 74.3 % (38.7-73.9); Platelet Count 160 T/CUMM (130-400); Red Blood Count 3.73 MC/CUMM (3.8-5.5); Red Cell Distribution Width 16.8 % (9.3-17.3); White Blood Count 9.7 T/CUMM (4-12)
[2020-12-20 05:22] LABS: Calcium 8.2 MG/DL (8.5-10.1)
[2020-12-20 05:52] LABS: Albumin 2.1 G/DL (3.4-5.0); Bilirubin,Total 0.5 MG/DL (0.20-1.00); Total Protein 5.2 G/DL (6.4-8.2)
[2020-12-20] MEDS: MEROPENEM 500 MG in SODIUM CHLORIDE 0.9% 100 ML IV SCH ×3 (05:56→21:35)
[2020-12-20] MEDS: PANTOPRAZOLE 40 MG VIAL IV SCH ×2 (10:00→21:35)
[2020-12-20] MEDS: FUROSEMIDE 40 MG/4 ML VIAL IV SCH (10:00)
[2020-12-20] MEDS: METOPROLOL TARTRATE 5 MG/5 ML VIAL IV SCH ×2 (10:01→21:35)
[2020-12-20] MEDS: ZINC OXIDE PASTE 113 GM TUBE TOP SCH ×2 (10:01→21:35)
[2020-12-20] MEDS: DEXT 5% NACL 0.9% KCL 20 MEQ 20 MEQ/1,000 ML BAG IV SCH (10:22)
[2020-12-20] MEDS ORDERED: POTASSIUM CHLORIDE RIDER 10 MEQ/100 ML PREMIX IV PRN (11:35)
[2020-12-20] MEDS ORDERED: DEXTROSE 50% 25 GM/50 ML VIAL IV PRN (12:36)
[2020-12-20] MEDS ORDERED: MAGNESIUM SULF IV ONE (14:00)
[2020-12-20] MEDS ORDERED: POTASSIUM CHLORIDE IV ONE (14:00)
[2020-12-20] MEDS ORDERED: SODIUM CHLORIDE 0.9% IV ONE (14:00)
[2020-12-20] MEDS ORDERED: MAGNESIUM SULF RIDER 2 GM/50 ML PREMIX IV ONE (15:00)
[2020-12-20] MEDS: ENOXAPARIN 40 MG/0.4 ML SYRINGE SUBCUT SCH (16:33)
[2020-12-20] MEDS ORDERED: ZINC/COPPER/MANGANESE/SELENIUM 1 ML, MULTIVITAMIN INJ 10 ML in AMINO ACIDS/DEXT/LYTES 5... IV SCH (17:00)
[2020-12-20] MEDS: INSULIN REGULAR 100 UNIT/ML SUBCUT SCH (17:26)
[2020-12-20] MEDS: ONDANSETRON 4 MG/2 ML VIAL IV PRN (18:42)
[2020-12-20] MEDS: PROMETHAZINE 25 MG/1 ML VIAL IM PRN (22:47)
[2020-12-21] MEDS: INSULIN REGULAR 100 UNIT/ML SUBCUT SCH ×4 (00:47→18:37)
[2020-12-21] MEDS: DEXT 5% NACL 0.9% KCL 20 MEQ 20 MEQ/1,000 ML BAG IV SCH ×2 (01:46→12:15)
[2020-12-21 06:19] LABS: Basophils % 0.3 % (0.0-0.8); Eosinophils # 0.2 10*3/uL (0.0-0.87); Eosinophils % 1.3 % (0.00-10.9); Hematocrit 36.7 VOL% (42.0-52.0); Hemoglobin 11.5 GM/DL (14.0-18.0); Immature Granulocytes % 3.2 %; Immature Granulocytes Absolute 0.48 #; Lymphocytes # 1.3 10*3/uL (1.4-4.0); Lymphocytes % 8.6 % (21.2-54.2); Mean Corpuscular HGB Conc 31.3 GM/DL (32-36); Mean Corpuscular Volume 91.5 FL (87-102); Mean Platelet Volume 10.3 FL (9.6-12.0); Monocytes % 7.3 % (1.7-12.7); Neutrophils % 79.3 % (38.7-73.9); Platelet Count 189 T/CUMM (130-400); Red Blood Count 4.01 MC/CUMM (3.8-5.5); Red Cell Distribution Width 16.8 % (9.3-17.3); White Blood Count 14.9 T/CUMM (4-12)
[2020-12-21 06:42] LABS: Albumin 2.1 G/DL (3.4-5.0); Bilirubin,Total 0.6 MG/DL (0.20-1.00); Osmolality,Calculated 300.7 MOS/KG (273-304); Total Protein 5.5 G/DL (6.4-8.2)
[2020-12-21] MEDS: MEROPENEM 500 MG in SODIUM CHLORIDE 0.9% 100 ML IV SCH ×3 (06:45→22:45)
[2020-12-21] MEDS: PANTOPRAZOLE 40 MG VIAL IV SCH ×2 (08:41→21:44)
[2020-12-21] MEDS: FUROSEMIDE 40 MG/4 ML VIAL IV SCH (08:41)
[2020-12-21] MEDS: METOPROLOL TARTRATE 5 MG/5 ML VIAL IV SCH ×2 (08:41→21:44)
[2020-12-21] MEDS: ZINC OXIDE PASTE 113 GM TUBE TOP SCH ×2 (08:42→21:44)
[2020-12-21] MEDS: MANGANESE IV SCH (16:57)
[2020-12-21] MEDS: COPPER IV SCH (16:57)
[2020-12-21] MEDS: ZINC IV SCH (16:57)
[2020-12-21] MEDS: SELENIUM IV SCH (16:57)
[2020-12-21] MEDS: MULTIVITAMIN IV SCH (16:57)
[2020-12-21] MEDS: [UNRECOGNIZED DRUG - OTHER] IV SCH (16:57)
[2020-12-21] MEDS ORDERED: ZINC/COPPER/MANGANESE/SELENIUM 1 ML, MULTIVITAMIN INJ 10 ML in AMINO ACIDS/DEXT/LYTES 5... IV SCH (17:00)
[2020-12-21] MEDS: PROMETHAZINE 25 MG/1 ML VIAL IM PRN (21:45)
[2020-12-21 23:56] LABS: Bacteria,Urine Moderate /HPF (Few); Bilirubin,Urine Negative (Negative); Blood, Urine Moderate mg/dL (Negative); Glucose,Urine (UA) 50 mg/dL (Negative); Ketones,Urine Negative (Negative); Nitrite,Urine Negative (Negative); Protein,Urine 100 MG/DL; RBC,Urine 5382 /HPF (0-4); Squamous Epithelial Cell,Urine Few /HPF (0-10); Urine Appearance CLOUDY (Clear); Urine Color Brown (Yellow); Urine Specific Gravity 1.013 (1.001-1.035); Urine Urobilinogen < 2.0 EU/DL (0.2-1.0)
[2020-12-22] MEDS: INSULIN REGULAR 100 UNIT/ML SUBCUT SCH ×4 (03:34→18:45)
[2020-12-22] MEDS: MEROPENEM 500 MG in SODIUM CHLORIDE 0.9% 100 ML IV SCH ×3 (06:11→21:49)
[2020-12-22] MEDS: DEXT 5% NACL 0.9% KCL 20 MEQ 20 MEQ/1,000 ML BAG IV SCH ×2 (06:12→19:14)
[2020-12-22 09:34] LABS: Basophils % 0.3 % (0.0-0.8); Eosinophils # 0.2 10*3/uL (0.0-0.87); Eosinophils % 1.5 % (0.00-10.9); Hematocrit 37.1 VOL% (42.0-52.0); Hemoglobin 11.2 GM/DL (14.0-18.0); Immature Granulocytes % 3.1 %; Immature Granulocytes Absolute 0.44 #; Lymphocytes # 1.1 10*3/uL (1.4-4.0); Lymphocytes % 7.6 % (21.2-54.2); Mean Corpuscular HGB Conc 30.2 GM/DL (32-36); Mean Corpuscular Volume 94.2 FL (87-102); Mean Platelet Volume 10.5 FL (9.6-12.0); Monocytes % 5.6 % (1.7-12.7); Neutrophils % 81.9 % (38.7-73.9); Platelet Count 197 T/CUMM (130-400); Red Blood Count 3.94 MC/CUMM (3.8-5.5); White Blood Count 14.4 T/CUMM (4-12)
[2020-12-22 09:55] LABS: Calcium 7.9 MG/DL (8.5-10.1); Osmolality,Calculated 306.4 MOS/KG (273-304); Potassium 4.9 MMOL/L (3.5-5.1)
[2020-12-22] MEDS: FUROSEMIDE 40 MG/4 ML VIAL IV SCH (10:36)
[2020-12-22] MEDS: PANTOPRAZOLE 40 MG VIAL IV SCH ×2 (10:39→21:49)
[2020-12-22] MEDS: ZINC OXIDE PASTE 113 GM TUBE TOP SCH ×2 (10:39→21:50)
[2020-12-22] MEDS: METOPROLOL TARTRATE 5 MG/5 ML VIAL IV SCH ×2 (10:44→21:49)
[2020-12-22] MEDS: FAT EMULSION 20% 250 ML IV SCH (14:47)
[2020-12-22] MEDS: SELENIUM IV SCH (21:50)
[2020-12-22] MEDS: ZINC IV SCH (21:50)
[2020-12-22] MEDS: MULTIVITAMIN IV SCH (21:50)
[2020-12-22] MEDS: [UNRECOGNIZED DRUG - OTHER] IV SCH (21:50)
[2020-12-22] MEDS: COPPER IV SCH (21:50)
[2020-12-22] MEDS: MANGANESE IV SCH (21:50)
[2020-12-23] MEDS: INSULIN REGULAR 100 UNIT/ML SUBCUT SCH ×4 (01:00→19:01)
[2020-12-23] MEDS: DEXT 5% NACL 0.9% KCL 20 MEQ 20 MEQ/1,000 ML BAG IV SCH ×3 (05:43→20:45)
[2020-12-23] MEDS: MEROPENEM 500 MG in SODIUM CHLORIDE 0.9% 100 ML IV SCH ×3 (06:27→22:54)
[2020-12-23] MEDS: FUROSEMIDE 40 MG/4 ML VIAL IV SCH (09:15)
[2020-12-23] MEDS: METOPROLOL TARTRATE 5 MG/5 ML VIAL IV SCH ×2 (09:19→22:53)
[2020-12-23] MEDS: PANTOPRAZOLE 40 MG VIAL IV SCH ×2 (09:23→22:54)
[2020-12-23] MEDS: ZINC OXIDE PASTE 113 GM TUBE TOP SCH ×2 (10:21→23:14)
[2020-12-23] MEDS ORDERED: SODIUM CHLORIDE 0.9% 500 ML IV ONE (12:45)
[2020-12-23 12:47] LABS: Basophils % 0.2 % (0.0-0.8); Eosinophils # 0.2 10*3/uL (0.0-0.87); Eosinophils % 1.3 % (0.00-10.9); Hematocrit 33.3 VOL% (42.0-52.0); Immature Granulocytes % 1.5 %; Lymphocytes # 0.9 10*3/uL (1.4-4.0); Lymphocytes % 6.7 % (21.2-54.2); Mean Corpuscular Volume 96.2 FL (87-102); Mean Platelet Volume 10.2 FL (9.6-12.0); Monocytes % 5.9 % (1.7-12.7); NRBC # 0.02 10*3/uL; Neutrophils % 84.4 % (38.7-73.9); Platelet Count 143 T/CUMM (130-400); Red Blood Count 3.46 MC/CUMM (3.8-5.5); Red Cell Distribution Width 16.9 % (9.3-17.3)
[2020-12-23 13:18] LABS: Albumin 1.8 G/DL (3.4-5.0); Bilirubin,Total 1.3 MG/DL (0.20-1.00); Calcium 7.9 MG/DL (8.5-10.1); Osmolality,Calculated 307.4 MOS/KG (273-304); Total Protein 5.1 G/DL (6.4-8.2)
[2020-12-23] MEDS: carvediloL 25 MG TABLET PO SCH (18:02)
[2020-12-23] MEDS: [UNRECOGNIZED DRUG - OTHER] IV SCH (22:58)
[2020-12-23] MEDS: SELENIUM IV SCH (22:58)
[2020-12-23] MEDS: MULTIVITAMIN IV SCH (22:58)
[2020-12-23] MEDS: MANGANESE IV SCH (22:58)
[2020-12-23] MEDS: ZINC IV SCH (22:58)
[2020-12-23] MEDS: COPPER IV SCH (22:58)
[2020-12-23] MEDS: AMIODARONE 200 MG TABLET PO SCH (23:18)
[2020-12-23] MEDS: DILTIAZEM 60 MG TABLET PO SCH (23:18)
[2020-12-23] MEDS: APIXABAN 5 MG TABLET PO SCH (23:19)
[2020-12-24] MEDS: INSULIN REGULAR 100 UNIT/ML SUBCUT SCH ×4 (01:01→17:53)
[2020-12-24] MEDS: DEXT 5% NACL 0.9% KCL 20 MEQ 20 MEQ/1,000 ML BAG IV SCH ×2 (04:25→10:05)
[2020-12-24 05:36] LABS: Basophils % 0.2 % (0.0-0.8); Eosinophils # 0.2 10*3/uL (0.0-0.87); Eosinophils % 1.8 % (0.00-10.9); Hematocrit 30.5 VOL% (42.0-52.0); Hemoglobin 9.1 GM/DL (14.0-18.0); Immature Granulocytes % 1.8 %; Immature Granulocytes Absolute 0.18 #; Lymphocytes # 0.9 10*3/uL (1.4-4.0); Lymphocytes % 8.6 % (21.2-54.2); Mean Corpuscular HGB Conc 29.8 GM/DL (32-36); Mean Corpuscular Volume 97.4 FL (87-102); Mean Platelet Volume 10.6 FL (9.6-12.0); Monocytes % 5.6 % (1.7-12.7); Platelet Count 157 T/CUMM (130-400); Red Blood Count 3.13 MC/CUMM (3.8-5.5); Red Cell Distribution Width 16.9 % (9.3-17.3); White Blood Count 10.2 T/CUMM (4-12)
[2020-12-24] MEDS: MEROPENEM 500 MG in SODIUM CHLORIDE 0.9% 100 ML IV SCH ×3 (05:40→22:02)
[2020-12-24 05:58] LABS: Albumin 1.7 G/DL (3.4-5.0); Bilirubin,Total 0.4 MG/DL (0.20-1.00); Potassium 5.2 MMOL/L (3.5-5.1); Total Protein 4.8 G/DL (6.4-8.2)
[2020-12-24] MEDS: ASPIRIN EC 81 MG TABLET PO SCH (09:33)
[2020-12-24] MEDS: allopurinoL 300 MG TABLET PO SCH (09:34)
[2020-12-24] MEDS: carvediloL 25 MG TABLET PO SCH ×2 (09:34→17:04)
[2020-12-24] MEDS: AMIODARONE 200 MG TABLET PO SCH ×2 (09:34→22:04)
[2020-12-24] MEDS: APIXABAN 5 MG TABLET PO SCH ×2 (09:34→22:04)
[2020-12-24] MEDS: DILTIAZEM 60 MG TABLET PO SCH ×2 (09:34→22:03)
[2020-12-24] MEDS: METOPROLOL TARTRATE 5 MG/5 ML VIAL IV SCH ×2 (09:35→21:55)
[2020-12-24] MEDS: FUROSEMIDE 40 MG/4 ML VIAL IV SCH (09:35)
[2020-12-24] MEDS: ZINC OXIDE PASTE 113 GM TUBE TOP SCH ×2 (09:36→22:12)
[2020-12-24] MEDS: PANTOPRAZOLE 40 MG VIAL IV SCH ×2 (09:36→22:00)
[2020-12-24] MEDS ORDERED: SODIUM CHLORIDE 0.9% 500 ML IV ONE (09:48)
[2020-12-24] MEDS: [UNRECOGNIZED DRUG - OTHER] IV SCH (16:44)
[2020-12-24] MEDS: SELENIUM IV SCH (16:44)
[2020-12-24] MEDS: MULTIVITAMIN IV SCH (16:44)
[2020-12-24] MEDS: MANGANESE IV SCH (16:44)
[2020-12-24] MEDS: ZINC IV SCH (16:44)
[2020-12-24] MEDS: COPPER IV SCH (16:44)
[2020-12-24] MEDS: DEXTROSE 5% NACL 0.45% 1,000 ML IV SCH (16:57)
[2020-12-24] MEDS: DEXTROSE 10% 1,000 ML IV PRN (17:04)
[2020-12-25] MEDS: INSULIN REGULAR 100 UNIT/ML SUBCUT SCH ×4 (00:54→17:23)
[2020-12-25] MEDS: DEXTROSE 10% 1,000 ML IV PRN (02:12)
[2020-12-25 06:11] LABS: Calcium 8.2 MG/DL (8.5-10.1); Osmolality,Calculated 317.8 MOS/KG (273-304); Potassium 5.8 MMOL/L (3.5-5.1)
[2020-12-25] MEDS: MEROPENEM 500 MG in SODIUM CHLORIDE 0.9% 100 ML IV SCH ×3 (06:30→22:18)
[2020-12-25] MEDS: DEXTROSE 5% NACL 0.45% 1,000 ML IV SCH ×3 (07:58→16:34)
[2020-12-25] MEDS: allopurinoL 300 MG TABLET PO SCH (09:16)
[2020-12-25] MEDS: DILTIAZEM 60 MG TABLET PO SCH ×2 (09:16→22:23)
[2020-12-25] MEDS: APIXABAN 5 MG TABLET PO SCH ×2 (09:17→22:25)
[2020-12-25] MEDS: carvediloL 25 MG TABLET PO SCH ×2 (09:17→16:34)
[2020-12-25] MEDS: ASPIRIN EC 81 MG TABLET PO SCH (09:17)
[2020-12-25] MEDS: AMIODARONE 200 MG TABLET PO SCH ×2 (09:19→22:24)
[2020-12-25] MEDS: FUROSEMIDE 40 MG/4 ML VIAL IV SCH (09:23)
[2020-12-25] MEDS: PANTOPRAZOLE 40 MG VIAL IV SCH ×2 (09:23→22:15)
[2020-12-25] MEDS: METOPROLOL TARTRATE 5 MG/5 ML VIAL IV SCH ×2 (09:23→22:17)
[2020-12-25] MEDS: ZINC OXIDE PASTE 113 GM TUBE TOP SCH ×2 (09:24→22:25)
[2020-12-25] MEDS: SELENIUM IV SCH (16:26)
[2020-12-25] MEDS: COPPER IV SCH (16:26)
[2020-12-25] MEDS: ZINC IV SCH (16:26)
[2020-12-25] MEDS: [UNRECOGNIZED DRUG - OTHER] IV SCH (16:26)
[2020-12-25] MEDS: MANGANESE IV SCH (16:26)
[2020-12-25] MEDS: MULTIVITAMIN IV SCH (16:26)
[2020-12-25] MEDS ORDERED: PHENOL 1.4% THROAT SPRAY 177 ML BOTTLE PO PRN (16:52)
[2020-12-26] MEDS: INSULIN REGULAR 100 UNIT/ML SUBCUT SCH ×4 (00:50→20:57)
[2020-12-26] MEDS: DEXTROSE 5% NACL 0.45% 1,000 ML IV SCH ×3 (01:04→21:12)
[2020-12-26 05:37] LABS: Basophils % 0.3 % (0.0-0.8); Eosinophils # 0.3 10*3/uL (0.0-0.87); Eosinophils % 3.2 % (0.00-10.9); Hemoglobin 8.7 GM/DL (14.0-18.0); Immature Granulocytes % 2.9 %; Lymphocytes # 0.9 10*3/uL (1.4-4.0); Lymphocytes % 8.9 % (21.2-54.2); Mean Corpuscular Volume 95.7 FL (87-102); Mean Platelet Volume 9.9 FL (9.6-12.0); Monocytes % 5.6 % (1.7-12.7); Neutrophils % 79.1 % (38.7-73.9); Platelet Count 188 T/CUMM (130-400); Red Blood Count 3.03 MC/CUMM (3.8-5.5); Red Cell Distribution Width 16.2 % (9.3-17.3); White Blood Count 10.4 T/CUMM (4-12)
[2020-12-26 06:02] LABS: Albumin 1.6 G/DL (3.4-5.0); Bilirubin,Total 0.9 MG/DL (0.20-1.00); Calcium 8.2 MG/DL (8.5-10.1); Potassium 4.3 MMOL/L (3.5-5.1); Total Protein 5.1 G/DL (6.4-8.2)
[2020-12-26] MEDS: DILTIAZEM 60 MG TABLET PO SCH ×2 (10:01→21:27)
[2020-12-26] MEDS: APIXABAN 5 MG TABLET PO SCH ×2 (10:01→21:28)
[2020-12-26] MEDS: allopurinoL 300 MG TABLET PO SCH (10:01)
[2020-12-26] MEDS: ASPIRIN EC 81 MG TABLET PO SCH (10:02)
[2020-12-26] MEDS: AMIODARONE 200 MG TABLET PO SCH ×2 (10:03→21:27)
[2020-12-26] MEDS: ZINC OXIDE PASTE 113 GM TUBE TOP SCH (10:04)
[2020-12-26] MEDS: PANTOPRAZOLE 40 MG VIAL IV SCH ×2 (10:05→21:10)
[2020-12-26] MEDS: FUROSEMIDE 40 MG/4 ML VIAL IV SCH (10:06)
[2020-12-26] MEDS: METOPROLOL TARTRATE 5 MG/5 ML VIAL IV SCH ×2 (10:06→21:29)
[2020-12-26] MEDS: carvediloL 25 MG TABLET PO SCH ×2 (10:12→18:18)
[2020-12-26] MEDS: FAT EMULSION 20% 250 ML IV SCH (15:16)
[2020-12-26] MEDS: MULTIVITAMIN IV SCH (18:47)
[2020-12-26] MEDS: MANGANESE IV SCH (18:47)
[2020-12-26] MEDS: ZINC IV SCH (18:47)
[2020-12-26] MEDS: SELENIUM IV SCH (18:47)
[2020-12-26] MEDS: [UNRECOGNIZED DRUG - OTHER] IV SCH (18:47)
[2020-12-26] MEDS: COPPER IV SCH (18:47)
[2020-12-26] MEDS: MEROPENEM 500 MG in SODIUM CHLORIDE 0.9% 100 ML IV SCH (20:58)
[2020-12-27] MEDS: INSULIN REGULAR 100 UNIT/ML SUBCUT SCH ×4 (00:32→17:45)
[2020-12-27] MEDS: ZINC OXIDE PASTE 113 GM TUBE TOP SCH ×3 (00:37→23:16)
[2020-12-27] MEDS: MEROPENEM 500 MG in SODIUM CHLORIDE 0.9% 100 ML IV SCH ×3 (04:39→20:22)
[2020-12-27] MEDS: DEXTROSE 5% NACL 0.45% 1,000 ML IV SCH ×3 (07:41→20:19)
[2020-12-27] MEDS: allopurinoL 300 MG TABLET PO SCH (09:52)
[2020-12-27] MEDS: APIXABAN 5 MG TABLET PO SCH (09:52)
[2020-12-27] MEDS: carvediloL 25 MG TABLET PO SCH ×2 (09:52→17:22)
[2020-12-27] MEDS: DILTIAZEM 60 MG TABLET PO SCH ×2 (09:52→23:15)
[2020-12-27] MEDS: ASPIRIN EC 81 MG TABLET PO SCH (09:52)
[2020-12-27] MEDS: AMIODARONE 200 MG TABLET PO SCH ×2 (09:53→22:18)
[2020-12-27] MEDS: FUROSEMIDE 40 MG/4 ML VIAL IV SCH (09:54)
[2020-12-27] MEDS: METOPROLOL TARTRATE 5 MG/5 ML VIAL IV SCH ×2 (09:55→21:59)
[2020-12-27] MEDS: PANTOPRAZOLE 40 MG VIAL IV SCH ×2 (09:56→20:50)
[2020-12-27 11:29] LABS: Calcium 8.2 MG/DL (8.5-10.1); Potassium 4.4 MMOL/L (3.5-5.1)
[2020-12-27] MEDS: COPPER IV SCH (17:23)
[2020-12-27] MEDS: [UNRECOGNIZED DRUG - OTHER] IV SCH (17:23)
[2020-12-27] MEDS: MANGANESE IV SCH (17:23)
[2020-12-27] MEDS: SELENIUM IV SCH (17:23)
[2020-12-27] MEDS: MULTIVITAMIN IV SCH (17:23)
[2020-12-27] MEDS: ZINC IV SCH (17:23)
[2020-12-27] MEDS ORDERED: FUROSEMIDE 40 MG/4 ML VIAL IV ONE (17:51)
[2020-12-27 18:18] LABS: ABG Base Excess -8.6 MMOL/L (-2.5-2.5); ABG HCO3 17.4 MMOL/L (20-26); ABG Oxygen Saturation 93.4 % (95-100); ABG PCO2 67.6 MM HG (35-48); ABG PO2 75.3 MM HG (80-95); ABG TCO2 20.9 MMOL/L (23-27)
[2020-12-27 18:20] LABS: ABG PH 7.112 (7.35-7.45)
[2020-12-27 19:07] LABS: Calcium 8.1 MG/DL (8.5-10.1); Osmolality,Calculated 313.3 MOS/KG (273-304); Potassium 4.5 MMOL/L (3.5-5.1)
[2020-12-28] MEDS: INSULIN REGULAR 100 UNIT/ML SUBCUT SCH ×4 (00:36→18:17)
[2020-12-28 04:14] LABS: Basophils % 0.1 % (0.0-0.8); Eosinophils # 0.3 10*3/uL (0.0-0.87); Eosinophils % 3.2 % (0.00-10.9); Hematocrit 24.3 VOL% (42.0-52.0); Hemoglobin 7.2 GM/DL (14.0-18.0); Immature Granulocytes % 2.7 %; Immature Granulocytes Absolute 0.22 #; Lymphocytes % 12.5 % (21.2-54.2); Mean Corpuscular HGB Conc 29.6 GM/DL (32-36); Mean Platelet Volume 9.8 FL (9.6-12.0); Monocytes % 5.5 % (1.7-12.7); Platelet Count 163 T/CUMM (130-400); Red Blood Count 2.48 MC/CUMM (3.8-5.5); White Blood Count 8.2 T/CUMM (4-12)
[2020-12-28 04:20] LABS: ABG Base Excess -6.6 MMOL/L (-2.5-2.5); ABG HCO3 18.9 MMOL/L (20-26); ABG Oxygen Saturation 97.6 % (95-100); ABG PCO2 47.6 MM HG (35-48); ABG PH 7.241 (7.35-7.45); ABG PO2 92.9 MM HG (80-95); ABG TCO2 19.6 MMOL/L (23-27); Allen Test Positive; Pt O2 Delivery Device BIPAP
[2020-12-28 04:55] LABS: Alanine Aminotransferase 10 U/L (16-61); Albumin 1.6 G/DL (3.4-5.0); Alkaline Phosphatase 51 U/L (45-117); Aspartate Amino Transferase 8 U/L (0-37); Bilirubin,Total < 0.39 MG/DL (0.20-1.00); Blood Urea Nitrogen 100 MG/DL (7-18); Calcium 7.8 MG/DL (8.5-10.1); Carbon Dioxide 22 MMOL/L (21-32); Estimated Glom Filtration Rate 34 ML/MIN; Glucose 177 MG/DL (74-106); Osmolality,Calculated 315.3 MOS/KG (273-304); Potassium 4.2 MMOL/L (3.5-5.1); Sodium 141 MMOL/L (136-145); Total Protein 4.7 G/DL (6.4-8.2)
[2020-12-28] MEDS: MEROPENEM 500 MG in SODIUM CHLORIDE 0.9% 100 ML IV SCH (05:28)
[2020-12-28] MEDS: FUROSEMIDE 40 MG/4 ML VIAL IV SCH ×2 (08:22→16:25)
[2020-12-28] MEDS: PANTOPRAZOLE 40 MG VIAL IV SCH ×2 (08:22→21:25)
[2020-12-28] MEDS: allopurinoL 300 MG TABLET PO SCH (08:23)
[2020-12-28] MEDS: ZINC OXIDE PASTE 113 GM TUBE TOP SCH ×2 (08:23→21:27)
[2020-12-28] MEDS: DILTIAZEM 60 MG TABLET PO SCH ×2 (08:23→21:26)
[2020-12-28] MEDS: AMIODARONE 200 MG TABLET PO SCH ×2 (08:23→21:26)
[2020-12-28] MEDS: ASPIRIN EC 81 MG TABLET PO SCH (08:23)
[2020-12-28] MEDS: carvediloL 25 MG TABLET PO SCH ×2 (08:38→16:25)
[2020-12-28] MEDS: METOPROLOL TARTRATE 5 MG/5 ML VIAL IV SCH ×2 (08:38→22:39)
[2020-12-28] MEDS: DESITIN 4OZ/NYSTATIN 15 GRAM MIXTURE PASTE TOP SCH ×2 (13:02→21:27)
[2020-12-28] MEDS: ALBUMIN 25% 25 GM/100 ML VIAL IV SCH (14:40)
[2020-12-28] MEDS ORDERED: LIDOCAINE 2% TOP JELLY 20 ML VIAL INTRAURETH ONE (15:17)
[2020-12-28] MEDS ORDERED: metOLazone 5 MG TABLET PO ONE (15:30)
[2020-12-28] MEDS: COPPER IV SCH (17:14)
[2020-12-28] MEDS: ZINC IV SCH (17:14)
[2020-12-28] MEDS: MULTIVITAMIN IV SCH (17:14)
[2020-12-28] MEDS: MANGANESE IV SCH (17:14)
[2020-12-28] MEDS: [UNRECOGNIZED DRUG - OTHER] IV SCH (17:14)
[2020-12-28] MEDS: SELENIUM IV SCH (17:14)
[2020-12-28 20:36] LABS: Hematocrit 23.1 VOL% (42.0-52.0); Hemoglobin 6.7 GM/DL (14.0-18.0)
[2020-12-28] MEDS ORDERED: SODIUM CHLORIDE 0.9% 1,000 ML IV PRN (20:49)
[2020-12-28] MEDS: fentaNYL 25 MCG/HR PATCH TRANSDERM SCH (21:44)
[2020-12-29] MEDS: INSULIN REGULAR 100 UNIT/ML SUBCUT SCH ×4 (00:21→19:14)
[2020-12-29 02:31] LABS: Hematocrit 24.9 VOL% (42.0-52.0); Hemoglobin 7.4 GM/DL (14.0-18.0)
[2020-12-29] MEDS: ALBUMIN 25% 25 GM/100 ML VIAL IV SCH ×2 (02:39→15:11)
[2020-12-29 03:44] LABS: ABG Base Excess -4.4 MMOL/L (-2.5-2.5); ABG HCO3 20.8 MMOL/L (20-26); ABG Oxygen Saturation 98.8 % (95-100); ABG PH 7.324 (7.35-7.45); ABG TCO2 20.1 MMOL/L (23-27); Allen Test Positive; Pt O2 Delivery Device BIPAP
[2020-12-29 04:02] LABS: Basophils % 0.1 % (0.0-0.8); Eosinophils # 0.3 10*3/uL (0.0-0.87); Eosinophils % 3.8 % (0.00-10.9); Hematocrit 24.3 VOL% (42.0-52.0); Hemoglobin 7.2 GM/DL (14.0-18.0); Immature Granulocytes % 2.7 %; Immature Granulocytes Absolute 0.21 #; Lymphocytes # 1.1 10*3/uL (1.4-4.0); Lymphocytes % 13.5 % (21.2-54.2); Mean Corpuscular HGB Conc 29.6 GM/DL (32-36); Mean Corpuscular Volume 95.7 FL (87-102); Mean Platelet Volume 9.9 FL (9.6-12.0); Monocytes % 4.9 % (1.7-12.7); Platelet Count 167 T/CUMM (130-400); Red Blood Count 2.54 MC/CUMM (3.8-5.5); Red Cell Distribution Width 15.7 % (9.3-17.3); White Blood Count 7.9 T/CUMM (4-12)
[2020-12-29 04:26] LABS: Calcium 7.9 MG/DL (8.5-10.1); Potassium 3.9 MMOL/L (3.5-5.1)
[2020-12-29] MEDS ORDERED: SODIUM CHLORIDE 0.9% 1,000 ML IV PRN (08:10)
[2020-12-29] MEDS: DILTIAZEM 60 MG TABLET PO SCH ×2 (08:16→21:34)
[2020-12-29] MEDS: ASPIRIN EC 81 MG TABLET PO SCH (08:17)
[2020-12-29] MEDS: allopurinoL 300 MG TABLET PO SCH (08:17)
[2020-12-29] MEDS: FUROSEMIDE 40 MG/4 ML VIAL IV SCH ×2 (08:17→16:16)
[2020-12-29] MEDS: PANTOPRAZOLE 40 MG VIAL IV SCH ×2 (08:17→21:30)
[2020-12-29] MEDS: AMIODARONE 200 MG TABLET PO SCH ×2 (08:17→21:35)
[2020-12-29] MEDS: carvediloL 25 MG TABLET PO SCH ×2 (08:34→17:24)
[2020-12-29] MEDS: METOPROLOL TARTRATE 5 MG/5 ML VIAL IV SCH ×2 (08:34→22:44)
[2020-12-29] MEDS: ZINC OXIDE PASTE 113 GM TUBE TOP SCH ×2 (08:34→21:35)
[2020-12-29] MEDS: DESITIN 4OZ/NYSTATIN 15 GRAM MIXTURE PASTE TOP SCH ×2 (08:34→21:35)
[2020-12-29 12:12] LABS: Hematocrit 26.7 VOL% (42.0-52.0)
[2020-12-29] MEDS: FAT EMULSION 20% 250 ML IV SCH (13:56)
[2020-12-29] MEDS: ENOXAPARIN 40 MG/0.4 ML SYRINGE SUBCUT SCH (16:16)
[2020-12-29] MEDS: MANGANESE IV SCH (17:24)
[2020-12-29] MEDS: COPPER IV SCH (17:24)
[2020-12-29] MEDS: [UNRECOGNIZED DRUG - OTHER] IV SCH (17:24)
[2020-12-29] MEDS: ZINC IV SCH (17:24)
[2020-12-29] MEDS: SELENIUM IV SCH (17:24)
[2020-12-29] MEDS: MULTIVITAMIN IV SCH (17:24)
[2020-12-29] MEDS: APIXABAN 5 MG TABLET PO SCH (21:35)
[2020-12-30] MEDS: INSULIN REGULAR 100 UNIT/ML SUBCUT SCH ×4 (00:03→17:34)
[2020-12-30] MEDS: ALBUMIN 25% 25 GM/100 ML VIAL IV SCH (02:44)
[2020-12-30 05:09] LABS: Basophils % 0.2 % (0.0-0.8); Eosinophils # 0.3 10*3/uL (0.0-0.87); Hematocrit 24.7 VOL% (42.0-52.0); Hemoglobin 7.7 GM/DL (14.0-18.0); Immature Granulocytes % 2.1 %; Immature Granulocytes Absolute 0.18 #; Lymphocytes # 0.9 10*3/uL (1.4-4.0); Lymphocytes % 10.9 % (21.2-54.2); Mean Corpuscular HGB Conc 31.2 GM/DL (32-36); Mean Corpuscular Volume 94.6 FL (87-102); Mean Platelet Volume 10.3 FL (9.6-12.0); Monocytes % 4.8 % (1.7-12.7); Platelet Count 171 T/CUMM (130-400); Red Blood Count 2.61 MC/CUMM (3.8-5.5); Red Cell Distribution Width 15.8 % (9.3-17.3); White Blood Count 8.5 T/CUMM (4-12)
[2020-12-30 05:30] LABS: Calcium 8.3 MG/DL (8.5-10.1); Osmolality,Calculated 318.8 MOS/KG (273-304); Potassium 3.8 MMOL/L (3.5-5.1)
[2020-12-30] MEDS: allopurinoL 300 MG TABLET PO SCH (08:28)
[2020-12-30] MEDS: carvediloL 25 MG TABLET PO SCH ×2 (08:28→16:13)
[2020-12-30] MEDS: APIXABAN 5 MG TABLET PO SCH ×2 (08:28→22:20)
[2020-12-30] MEDS: ASPIRIN EC 81 MG TABLET PO SCH (08:28)
[2020-12-30] MEDS: PANTOPRAZOLE 40 MG VIAL IV SCH ×2 (08:29→22:19)
[2020-12-30] MEDS: FUROSEMIDE 40 MG/4 ML VIAL IV SCH (08:34)
[2020-12-30] MEDS: AMIODARONE 200 MG TABLET PO SCH ×2 (08:37→22:20)
[2020-12-30] MEDS: DILTIAZEM 60 MG TABLET PO SCH ×2 (08:37→22:21)
[2020-12-30] MEDS: DESITIN 4OZ/NYSTATIN 15 GRAM MIXTURE PASTE TOP SCH ×2 (08:38→22:21)
[2020-12-30] MEDS: ZINC OXIDE PASTE 113 GM TUBE TOP SCH ×2 (08:39→22:21)
[2020-12-30] MEDS: METOPROLOL TARTRATE 5 MG/5 ML VIAL IV SCH (08:39)
[2020-12-30] MEDS: ENOXAPARIN 40 MG/0.4 ML SYRINGE SUBCUT SCH (16:13)
[2020-12-30] MEDS: ZINC IV SCH (16:51)
[2020-12-30] MEDS: MANGANESE IV SCH (16:51)
[2020-12-30] MEDS: [UNRECOGNIZED DRUG - OTHER] IV SCH (16:51)
[2020-12-30] MEDS: SELENIUM IV SCH (16:51)
[2020-12-30] MEDS: MULTIVITAMIN IV SCH (16:51)
[2020-12-30] MEDS: COPPER IV SCH (16:51)
[2020-12-31] MEDS: INSULIN REGULAR 100 UNIT/ML SUBCUT SCH ×4 (03:32→18:03)
[2020-12-31 05:52] LABS: Basophils % 0.2 % (0.0-0.8); Eosinophils # 0.2 10*3/uL (0.0-0.87); Eosinophils % 1.9 % (0.00-10.9); Hematocrit 25.5 VOL% (42.0-52.0); Hemoglobin 7.8 GM/DL (14.0-18.0); Immature Granulocytes % 1.6 %; Immature Granulocytes Absolute 0.17 #; Lymphocytes # 0.9 10*3/uL (1.4-4.0); Lymphocytes % 8.6 % (21.2-54.2); Mean Corpuscular HGB Conc 30.6 GM/DL (32-36); Mean Corpuscular Volume 94.8 FL (87-102); Mean Platelet Volume 10.7 FL (9.6-12.0); Monocytes % 4.8 % (1.7-12.7); Neutrophils % 82.9 % (38.7-73.9); Platelet Count 193 T/CUMM (130-400); Red Blood Count 2.69 MC/CUMM (3.8-5.5); Red Cell Distribution Width 15.8 % (9.3-17.3); White Blood Count 10.4 T/CUMM (4-12)
[2020-12-31 06:09] LABS: Calcium 8.4 MG/DL (8.5-10.1); Osmolality,Calculated 321.8 MOS/KG (273-304); Potassium 4.1 MMOL/L (3.5-5.1)
[2020-12-31 06:27] LABS: ABG Base Excess -1.5 MMOL/L (-2.5-2.5); ABG HCO3 23.1 MMOL/L (20-26); ABG Oxygen Saturation 90.8 % (95-100); ABG PCO2 46.9 MM HG (35-48); ABG PH 7.327 (7.35-7.45); ABG PO2 61.3 MM HG (80-95); ABG TCO2 23.1 MMOL/L (23-27)
[2020-12-31] MEDS ORDERED: FUROSEMIDE 40 MG/4 ML VIAL IV ONE (08:45)
[2020-12-31] MEDS ORDERED: FUROSEMIDE 40 MG/4 ML VIAL IV SCH (09:00)
[2020-12-31] MEDS: AMIODARONE 200 MG TABLET PO SCH ×2 (10:04→21:21)
[2020-12-31] MEDS: carvediloL 25 MG TABLET PO SCH ×2 (10:05→18:00)
[2020-12-31] MEDS: DILTIAZEM 60 MG TABLET PO SCH ×2 (10:05→21:21)
[2020-12-31] MEDS: APIXABAN 5 MG TABLET PO SCH ×2 (10:06→21:21)
[2020-12-31] MEDS: allopurinoL 300 MG TABLET PO SCH (10:06)
[2020-12-31] MEDS: ZINC OXIDE PASTE 113 GM TUBE TOP SCH ×2 (10:07→21:21)
[2020-12-31] MEDS: ASPIRIN EC 81 MG TABLET PO SCH (10:07)
[2020-12-31] MEDS: DESITIN 4OZ/NYSTATIN 15 GRAM MIXTURE PASTE TOP SCH ×2 (10:08→21:21)
[2020-12-31] MEDS: PANTOPRAZOLE 40 MG VIAL IV SCH ×2 (10:08→21:22)
[2020-12-31] MEDS: ASPIRIN CHEW 81 MG TABLET PO SCH (11:38)
[2020-12-31] MEDS: fentaNYL 25 MCG/HR PATCH TRANSDERM SCH (11:39)
[2020-12-31] MEDS: [UNRECOGNIZED DRUG - OTHER] IV SCH (18:00)
[2020-12-31] MEDS: COPPER IV SCH (18:00)
[2020-12-31] MEDS: MANGANESE IV SCH (18:00)
[2020-12-31] MEDS: ZINC IV SCH (18:00)
[2020-12-31] MEDS: SELENIUM IV SCH (18:00)
[2020-12-31] MEDS: MULTIVITAMIN IV SCH (18:00)
[2021-01-01] MEDS: INSULIN REGULAR 100 UNIT/ML SUBCUT SCH ×2 (00:28→05:53)
[2021-01-01 05:37] LABS: Calcium 8.5 MG/DL (8.5-10.1); Osmolality,Calculated 326.3 MOS/KG (273-304); Potassium 4.6 MMOL/L (3.5-5.1)
[2021-01-01 05:51] VITALS: BP 107/44
[2021-01-01] MEDS ORDERED: EPINEPHrine 1 MG/ML VIAL ONE ×3 (06:40→07:05)
[2021-01-01] MEDS ORDERED: EPINEPHrine 1 MG/10 ML SYRINGE IV ONE (06:41)
[2021-01-01] MEDS ORDERED: SODIUM BICARBONATE 50 MEQ/50 ML VIAL IV ONE (06:48)
[2021-01-01] MEDS: DOPamine 800 MG/250 ML PREMIX IV PRN ×2 (06:54→11:45)
[2021-01-01] MEDS ORDERED: ATROPINE 1 MG/10 ML SYRINGE IV ONE (07:00)
[2021-01-01 07:05] LABS: Basophils # 0.1 10*3/uL (0.0-0.2); Basophils % 0.2 % (0.0-0.8); Eosinophils # 0.3 10*3/uL (0.0-0.87); Eosinophils % 1.2 % (0.00-10.9); Hematocrit 28.9 VOL% (42.0-52.0); Hemoglobin 8.4 GM/DL (14.0-18.0); Immature Granulocytes % 6.4 %; Immature Granulocytes Absolute 1.37 #; Lymphocytes # 1.9 10*3/uL (1.4-4.0); Lymphocytes % 8.8 % (21.2-54.2); Mean Corpuscular HGB Conc 29.1 GM/DL (32-36); Mean Platelet Volume 10.7 FL (9.6-12.0); Monocytes % 4.1 % (1.7-12.7); NRBC # 0.06 10*3/uL; Neutrophils % 79.3 % (38.7-73.9); Platelet Count 327 T/CUMM (130-400); Red Blood Count 2.98 MC/CUMM (3.8-5.5); Red Cell Distribution Width 15.9 % (9.3-17.3); White Blood Count 21.5 T/CUMM (4-12)
[2021-01-01 07:15] LABS: ABG HCO3 21.9 MMOL/L (20-26); ABG Oxygen Saturation 93.7 % (95-100); ABG PCO2 68.3 MM HG (35-48); ABG PO2 76.4 MM HG (80-95); ABG TCO2 24.9 MMOL/L (23-27)
[2021-01-01 07:16] LABS: ABG PH 7.193 (7.35-7.45)
[2021-01-01 07:20] LABS: Alanine Aminotransferase 67 U/L (16-61); Alkaline Phosphatase 76 U/L (45-117); Aspartate Amino Transferase 96 U/L (0-37); Blood Urea Nitrogen 127 MG/DL (7-18); Calcium 9.3 MG/DL (8.5-10.1); Carbon Dioxide 27 MMOL/L (21-32); Estimated Glom Filtration Rate 23 ML/MIN; Glucose 187 MG/DL (74-106); Osmolality,Calculated 331.8 MOS/KG (273-304); Potassium 4.9 MMOL/L (3.5-5.1); Sodium 144 MMOL/L (136-145); Total Protein 5.7 G/DL (6.4-8.2)
[2021-01-01 07:21] LABS: INR 1.2; Partial Thromboplastin Time 32.5 SECS (23.8-32.1)
[2021-01-01] MEDS ORDERED: PIPERACILLIN/TAZOBACTAM 3,375 MG in SODIUM CHLORIDE 0.9% 100 ML IV SCH (07:30)
[2021-01-01 08:04] LABS: Atypical Lymphocytes Few; Hypochromasia Slight; Lymphocytes 12 % (20-55); Metamyelocytes 1 %; Myelocytes 2 %; Nucleated Red Blood Cells 2 (0-5); Platelet Estimate Normal; Polychromasia Slight; Segmented Neutrophils 79 % (50-85); Total Cells Counted 100
[2021-01-01] MEDS: ASPIRIN CHEW 81 MG TABLET PO SCH (08:52)
[2021-01-01] MEDS: ZINC OXIDE PASTE 113 GM TUBE TOP SCH (08:52)
[2021-01-01] MEDS: AMIODARONE 200 MG TABLET PO SCH (08:52)
[2021-01-01] MEDS: APIXABAN 5 MG TABLET PO SCH (08:52)
[2021-01-01] MEDS: allopurinoL 300 MG TABLET PO SCH (08:53)
[2021-01-01] MEDS: DESITIN 4OZ/NYSTATIN 15 GRAM MIXTURE PASTE TOP SCH (08:53)
[2021-01-01 09:02] LABS: ABG Base Excess -1.2 MMOL/L (-2.5-2.5); ABG HCO3 23.5 MMOL/L (20-26); ABG Oxygen Saturation 99.6 % (95-100); ABG PCO2 58.7 MM HG (35-48); ABG PH 7.265 (7.35-7.45); ABG TCO2 24.8 MMOL/L (23-27); Allen Test Positive; Pt O2 Delivery Device Ventilator
[2021-01-01] MEDS ORDERED: LORazepam 2 MG/1 ML VIAL IV PRN (13:29)
[2021-01-01] MEDS ORDERED: MORPHINE 2 MG/1 ML SYRINGE IV PRN ×2 (13:29)
== END 2021-01-01 14:03 | disposition expired | DRG 388 ==
LOC: N.EDINP 08:29 → N.ED 08:29 → N.5E 14:52 → SUATTDRO 12-15 10:39 → N.ICU 12-27 18:58 → N.3E 12-30 18:21 → N.ICU 01-01 06:42
PROVIDERS: ADMIT Family Medicine; ATTEND Family Medicine